=== PATIENT | female | born 1950 | race Caucasian/White ===

== ENCOUNTER → 2018-03-05 12:13 | Outpatient (CLI) | payer MEDICARE, OTHER, SELFPAY | PROVIDERS: Family Provider Preventive Medicine Occupational Medicine; PCP Preventive Medicine Occupational Medicine; Visit Provider Nurse Practitioner Acute Care | DX: Z46.89 Encounter for fitting and adjustment of other specified devices (principal) | CPT/HCPCS: 98960; G0463 ==

== ENCOUNTER 2020-09-14 16:59 | Outpatient (RCR) | payer MEDICARE, OTHER, SELFPAY ==
[2020-09-14] MEDS: COVID-19 VACC, MRNA(PFIZER)/PF 30 MCG/0.3 ML SYRINGE IM (07:50)
[2020-10-05] MEDS: COVID-19 VACC, MRNA(PFIZER)/PF 30 MCG/0.3 ML SYRINGE IM (07:29)
== END 2020-12-12 23:59 ==
LOC: IMMUN 16:59
PROVIDERS: PCP Preventive Medicine Occupational Medicine; Visit Provider Family Medicine
DX: Z23 Encounter for immunization (principal)
CPT/HCPCS: 0001A; 0002A; 91300

== ENCOUNTER → 2020-10-05 18:04 | Outpatient (CLI) | payer MEDICARE, OTHER, SELFPAY ==
[2020-10-05 16:16] VITALS: BMI 29.8
--- NOTE | 2020-10-05 18:16 | RAD_ITS ---
HISTORY: chest pain EXAM: XR Chest 2 Views: COMPARISON: None FINDINGS: # of images incl. paperwork: 2 Lungs are clear. Heart is not enlarged. Kyphosis with degenerative disc disease and anterior enthesophytes. Distention of the stomach slightly elevates the left hemidiaphragm.. Pulmonary vascularity is distinct. No effusions. RAD/Chest PA and Lateral IMPRESSION: No acute cardiopulmonary disease perceived. at 0701 Reported and signed by: Jem Adan MD Electronically Signed: Jem Adan MD at 7:00 EDT Tel , Service support ,
[2020-10-05 18:38] LABS: Absolute Lymphocyte Count 2.03 X10^3/uL (0.83-4.51); Absolute Neutrophil Count 6.1 X10^3/uL (2.0-7.7); Basophil# 0.11 X10^3/uL; Basophil% 1.2 % (0-1); Eosinophil# 0.12 X10^3/uL; Eosinophils% 1.3 % (0-5); Hematocrit 40.4 % (37-47); Hemoglobin 13.1 g/dL (12.0-15.0); Lymphocyte # 2.03 X10^3/ul (4.0); Lymphocyte % 21.8 % (19-41); Mean Corp Hgb Conc 32.4 g/dL (32-36); Mean Corpuscular Hgb 31.3 pg (27.0-32.0); Mean Corpuscular Volume 96.4 fL (81-99); Mean Platelet Vol. 10.2 fl (6.2-12.0); Monocyte# 0.82 X10^3/uL; Monocyte% 8.8 % (0-10); NRBC Flagged by Analyzer 0 % (0-5); Neutrophil # 6.05 X10^3/uL (2.7-7.7); Neutrophil % 64.9 % (47-70); Platelet Count 294 K/mm3 (150-450); RBC Distribution Width CV 13.5 % (11.6-14.6); RBC Distribution Width SD 47.5 fl (35.1-43.9); Red Blood Count 4.19 M/mm3 (4.2-5.4); White Blood Count 9.3 K/mm3 (4.4-11.0)
[2020-10-05 18:47] LABS: Prothrombin Time (Protime)PT. 12.2 SECONDS (11.7-14.9)
[2020-10-05 18:48] LABS: Partial Thromboplast Time 26.1 Seconds (24.1-36.2)
[2020-10-05 19:23] LABS: Anion Gap 7 (5-15); BUN 18 mg/dL (7-18); BUN/Creat Ratio 20.9 RATIO (10-20); Calcium,Total 9.4 mg/dL (8.5-10.1); Chloride 107 mmol/L (98-107); Creatinine, Serum 0.86 mg/dL (0.55-1.02); EST Glomerular Filtration Rate 69 mL/min (>60); Est Glom Filt Rate - Afr Amer 83 mL/min (>60); Glucose 106 mg/dL (74-106); Potassium 4.3 mmol/L (3.5-5.1); Sodium Level 138 mmol/L (136-145)
== END ==
PROVIDERS: PCP Preventive Medicine Occupational Medicine; Referring Provider Internal Medicine Cardiovascular Disease; Visit Provider Internal Medicine Cardiovascular Disease
DX: I20.9 Angina pectoris, unspecified (principal); I47.1 Supraventricular tachycardia; E78.00 Pure hypercholesterolemia, unspecified; I10 Essential (primary) hypertension; E11.9 Type 2 diabetes mellitus without complications; Z23 Encounter for immunization
CPT/HCPCS: 0002A; 36415; 71046; 80048; 85025; 85610; 85730; 91300

== ENCOUNTER 2020-10-13 07:00 | Day surgery (SDC) | payer MEDICARE, OTHER, SELFPAY ==
[2020-10-05 16:16] VITALS: BMI 29.8
[2020-10-11 14:13] VITALS: BMI 29.8
--- NOTE | 2020-10-12 19:18 | PCM.HP.BLA ---
Problem List (1) Angina pectoris Status: Acute History and Physical Date of Admission: 10/13/20 [facility] [address] [place] [address] OFFICE VISIT Date of Service: 10/05/20 MR#: [id number] Acct: [id number] Name: SHY MOORE Rep #: [id number] : 1950 Provider: Dr. Polo Evans MD Age/Sex: 70/F Location: [facility] [place] [facility] [place]: Signed HPI HPI History of Present Illness Surgical H&P: Yes Details: This is a 70-year-old white female who presents today for outpatient cardiovascular consultation based upon concerns of exertional chest tightness compatible with angina pectoris. This is superimposed upon a history of hyperlipidemia, hypertension, PSVT, and diabetes mellitus. She states that when she exerts herself, such as walking up an incline, she develops chest tightness as well as shortness of breath. She can sometimes stop and rest and feel better. Other times she states she can keep going and the symptoms will decrease and/or resolve. She does not notice the symptoms at rest or at night. She has not had orthopnea or PND or peripheral pitting edema. There has been no near syncope or syncope. She also has a history of PSVT. She notes that she has had notifications on her wristwatch of an elevated heart rate. She states that she does not necessarily sense these elevations. She has undergone 2 Holter monitors 1 in November 2018 that demonstrated sinus rhythm with rare to occasional supraventricular ectopic complexes and one 11 beat run of supraventricular tachycardia with no ventricular ectopy and a separate Holter monitor from May 2020 that demonstrated sinus rhythm with supraventricular tachycardia of 5 beats in duration and no ventricular ectopy. She is also had a transthoracic echocardiogram performed in May 2020 at [facility]. At that time the left ventricle was normal with an LVEF of 60 to 65% with a mild Franck calcified mitral valve annulus, mildly thickened and calcified aortic valve apparatus with mild AI, trivial TR, and no dilatation of the aortic root. She had an exercise tolerance test performed in May 2020 as well at [facility]. This noted that she exercised on a Gurjit protocol for 6 minutes and 37 seconds developing shortness of breath and fatigue with no obvious ECG changes reported and her myocardial perfusion study representing a technically difficult study due to significant subdiaphragmatic tracer activity as well as soft tissue attenuation with no clear evidence of ischemia or prior infarction and normal LV systolic function with an LVEF reported at greater than 70% with a comment stating that a prior study in 2004 did have a fixed defect in the anterior and anteroseptal segments and a fixed defect in the inferior segments seen on the current study was new but likely considered artifact. An ECG today demonstrated sinus rhythm with no acute changes. She states she was placed on metoprolol therapy but she did not tolerate it based upon concerns of weight gain and hair loss. Intake Vital Signs 10/05/20 Height 5 ft 5.5 in 10/05/20 Weight: 182 lb 10/05/20 BMI 29.8 10/05/20 BP 105/58 L 10/05/20 Blood Pressure Location Lt brachial 10/05/20 Position Sitting 10/05/20 Respiration 16 10/05/20 Pulse 88 10/05/20 Pulse Source Auscultation Intake Visit Reasons: SVT/Shoaib. 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 Required: No Accompanied by: None Is patient in pain?: No Allergies prednisone Allergy (Intermediate, Verified 10/05/20 16:16) Hyperglycemia benzonatate [From Tessalon Perles] Adverse Reaction (Severe, Verified 10/05/20 16:16) dizziness codeine Adverse Reaction (Severe, Verified 10/05/20 16:16) Anxiety/Nervous hydroxyzine [From Vistaril] Adverse Reaction (Severe, Verified 10/05/20 16:16) Hallucinations nitrofurantoin [From Macrodantin] Adverse Reaction (Severe, Verified 10/05/20 16:16) Diarrhea acetaminophen [From Vicodin] Adverse Reaction (Verified 10/05/20 16:16) Anxiety/Nervous hydrocodone [From Vicodin] Adverse Reaction (Verified 10/05/20 16:16) Anxiety/Nervous Medications ascorbic acid (vitamin C) 250 mg tablet 250 mg PO DAILY 09/19/20 [History Confirmed 10/05/20] aspirin 81 mg tablet,delayed release 81 mg PO DAILY 09/19/20 [History Confirmed 10/05/20] atorvastatin 20 mg tablet 20 mg PO QHS 09/19/20 [History Confirmed 10/05/20] biotin 5,000 mcg disintegrating tablet 5,000 mcg PO DAILY tab 09/19/20 [History Confirmed 10/05/20] exenatide microspheres 2 mg/0.85 mL subcutaneous auto-injector 2 mg SC QWEEK 09/19/20 [History Confirmed 10/05/20] ferrous sulfate 325 mg (65 mg iron) tablet 325 mg PO DAILY 09/19/20 [History Confirmed 10/05/20] gabapentin 100 mg capsule 100 mg PO .COMPLEX 09/19/20 [History Confirmed 10/05/20] ketoconazole 2 % topical cream 1 applic TOPICAL DAILY 09/19/20 [History Confirmed 10/05/20] levothyroxine 50 mcg tablet 50 mcg PO DAILY 09/19/20 [History Confirmed 10/05/20] lisinopril 2.5 mg tablet 2.5 mg PO DAILY 09/19/20 [History Confirmed 10/05/20] multivitamin 1 tab PO DAILY 09/19/20 [History Confirmed 10/05/20] pioglitazone 15 mg tablet 15 mg PO DAILY 09/19/20 [History Confirmed 10/05/20] sitagliptin 50 mg-metformin 1,000 mg tablet 1 tab PO BID 09/19/20 [History Confirmed 10/05/20] calcium carbonate 500 mg calcium (1,250 mg) chewable tablet 500 mg PO DAILY 10/05/20 [History Confirmed 10/05/20] clopidogrel 75 mg tablet 75 mg PO DAILY #30 tablet 10/05/20 [Rx Confirmed 10/05/20] coenzyme Q10 200 mg capsule 200 mg PO DAILY 10/05/20 [History Confirmed 10/05/20] [facility] Medical History HORACE on CPAP (Chronic) Premature atrial contraction (Acute) Type 2 diabetes mellitus (Chronic) GERD (gastroesophageal reflux disease) (Chronic) Hypothyroidism (Chronic) Pure hypercholesterolemia (Chronic) SVT (supraventricular tachycardia) (Acute) Essential hypertension (Chronic) Hiatal hernia (Chronic) Surgical History History of appendectomy (Resolved) History of bunionectomy (Resolved) History of hysterectomy (Resolved) History of laminectomy (Resolved) History of open reduction and internal fixation (ORIF) procedure (Resolved) Family History Mother Alzheimer disease Hypertension CVA (cerebral vascular accident) Father Diabetes Parkinson disease Heart disease Brother CAD (coronary artery disease) Diabetes Social History (Updated 10/05/20 @ 17:[address] Polo Evans MD) Smoking Status: Never smoker alcohol intake: never substance use type: does not use caffeine: No ROS Const Const: Negative for fatigue, weakness, headache(s), frequent falls, difficulty sleeping or excessive sweating Eyes Eyes: Negative for loss of peripheral vision, transient loss of vision, blurry vision, double vision or tunnel vision ENT ENT: Positive for balance problems (Related to knee problems); negative for headache(s), dizziness or Nosebleed/epistaxis Cardio Chest Pain: Yes Frequency: daily Character: tightness Onset: at rest, exercise Location: mid sternal Duration: minutes, hours Relieving: rest Palpitations: No Edema: None Muscle aches with walking: None Resp Respiratory: Negative for SOB with activity, SOB at rest, SOB orthopnea\SOB lying down, Cough or paroxysmal nocturnal dyspnea GI GI: Negative nausea, vomiting, heartburn or black,tarry stools : Negative for hematuria Musc Musc: Positive for balance problems (Related to knee problems); negative for muscle aches/ myalgia, muscle weakness or joint pain Skin Skin: Negative non-healing lesions, rash or unusual bruising Neuro Neuro: Negative for dizziness, lightheadedness, near syncope, syncope, frequent falls, headache(s), weakness, blurry vision, double vision or lack of coordination Flavio Hematologic/Lymphatic: Negative for easy bleeding or easy bruising Endo Endo: Negative for fatigue, excessive sweating or increased thirst/drinking Psych Psych: Negative for anxiety or depression Allergy Allergy/Immunology: Negative for hives, Negative for rash Cardiology Exam Const Appearance: cooperative, healthy appearing, comfortable, no acute distress, well developed and well groomed Nutritional Appearance: overweight Orientation: alert, awake and oriented x3 Head Head: normal to inspection, normocephalic and atraumatic Ears: hearing grossly normal bilaterally Nose: external nose normal Face and Sinus: face symmetric Eyes Eyelids: eyelids normal Conjunctivae: conjunctivae normal Pupils: PERRL EOM: EOM intact bilaterally Neck Neck: normal visual inspection and full ROM Carotids: normal carotid upstroke Chest Chest inspection: normal inspection of the chest, symmetric chest movement and normal respiratory effort Auscultation: Bilateral: Clear to Auscultation Cardio Palpation: normal PMI Rate: regular rate Rhythm: regular rhythm Heart sounds: S1 normal and S2 normal Murmur: Grade 2/6, harsh, mid systolic, LLSB, LVOT and sternal notch GI GI: normal to inspection, soft and bowel sounds present Neuro General: alert, awake, oriented x3 and moves all extremities Skin Skin: no rashes or lesions noted Extremities Pulses: Normal: Right Radial Pulse, Left Radial Pulse Lower Extremity Edema: None: Bilateral Psych Psychological: normal affect Assessment & Plan 1. Angina pectoris I20.9 Plan At the present time she does have symptoms which are concerning for exertional angina pectoris based on her concerns of chest tightness as well as her dyspnea. She does have multiple cardiovascular risk factors. Thus it was felt reasonable, despite her stress test findings, to consider further evaluation of her coronary anatomy with diagnostic cardiac catheterization. The procedure and risks were discussed with her. And she was agreeable to this approach. In preparation for this she will continue her medical therapy. She will also undergo additional medical therapy with antiplatelet therapy such as clopidogrel/Plavix in anticipation of the potential need for a PCI procedure. Orders Orders: 12 Lead EKG performed by [facility] Today Left Heart Cath/COR/LV Percut Today Basic Metabolic Profile (BMP) Today Partial Thromboplast Time Today Prothrombin Time w/INR Today CBC W/Diff, Automated Today Chest PA and Lateral Today 2. Supraventricular tachycardia I47.1 Plan She does have a history of PSVT. Based upon her Holter monitor is these episodes were brief. At the moment she appears without ongoing acute symptoms or adverse events. She will be followed observationally. If she does require medical therapy and she cannot tolerate metoprolol perhaps an alternative beta-kiki may be considered versus an alternative rate limiting agent. If she did have findings compatible with what appeared to be a reentry mechanism tachycardia then she could be considered for future EPS/RFA. Orders Orders: 12 Lead EKG performed by [facility]MS Today Basic Metabolic Profile (BMP) Today Partial Thromboplast Time Today Prothrombin Time w/INR Today CBC W/Diff, Automated Today Chest PA and Lateral Today 3. Pure hypercholesterolemia E78.00 Plan She will continue risk factor modification medical therapy. Orders Orders: Basic Metabolic Profile (BMP) Today Partial Thromboplast Time Today Prothrombin Time w/INR Today CBC W/Diff, Automated Today Chest PA and Lateral Today 4. Essential hypertension I10 Plan She will continue medical therapy for concerns of hypertension. Orders Orders: 12 Lead EKG performed by [facility] Today Basic Metabolic Profile (BMP) Today Partial Thromboplast Time Today Prothrombin Time w/INR Today CBC W/Diff, Automated Today Chest PA and Lateral Today 5. Diabetes mellitus E11.9 Plan She will continue to follow with her primary care physician group for her diabetes mellitus. Orders Orders: Basic Metabolic Profile (BMP) Today Partial Thromboplast Time Today Prothrombin Time w/INR Today CBC W/Diff, Automated Today Chest PA and Lateral Today Plan Detail Other Medications New: clopidogrel (Plavix) 4 tablets (300 mg) po x 1 on day 1 and then 1 tablet (75 mg) po qday 75 mg PO DAILY 30 tabs 0RF Additional Comments The above was discussed with her and she was agreeable to this approach. Follow Up 3 Months (PFM) Coding Level of Care Code Off vis,new,level 5 Diagnoses Angina pectoris I20.9 Supraventricular tachycardia I47.1 Pure hypercholesterolemia E78.00 Essential hypertension I10 Diabetes mellitus E11.9 Coding Level of Care Code Off vis,new,level 5 Diagnoses Angina pectoris I20.9 Supraventricular tachycardia I47.1 Pure hypercholesterolemia E78.00 Essential hypertension I10 Diabetes mellitus E11.9 Supplemental Info Supplemental Information Diagnostics Electrocardiogram 10/05/20 COVID (Procedure Consent) Procedure Criteria Procedure Criteria: Yes Elective The surgeon/proceduralist and patient have discussed in detail the risk of exposure to and/or potential harm posed by the COVID-19 virus with having a surgery/procedure at this time versus the risk of? delaying the surgery/procedure. It is not possible to know either the risk of delaying the surgery or procedure or chance of getting an infection with perfect accuracy, but a joint decision was made between the patient and the surgeon/proceduralist ?to proceed at this time with the scheduled surgery/procedure as indicated on the consent form. 10/05/20 1744 <Electronically signed by Polo Evans MD> Date Polo Evans MD I have re-examined the patient. There are no clinical changes since date of exam. Procedure Criteria Procedure Type: Elective COVID Risk Discussion: The surgeon/proceduralist and patient have discussed in detail the risk of exposure to and/or potential harm posed by the COVID-19 virus with having a surgery/procedure at this time versus the risk of delaying the surgery/procedure. It is not possible to know either the risk of delaying the surgery or procedure or chance of getting an infection with perfect accuracy, but a joint decision was made between the patient and the surgeon/proceduralist to proceed at this time with the scheduled surgery/procedure as indicated on the consent form.
--- NOTE | 2020-10-13 10:28 | CL.D_ITS ---
Patient Name: SHY MOORE Study Date: 10/13/2020 Performing: Polo Evans MD Ht: 65.35 inches 166 cm : 1950 Wt: 182.98 lbs 83 kg Age: 70 Gender: female BSA: 1.91 PROCEDURE(S) PERFORMED ZC04-AOR/COR/LV CLINICAL PROFILE AND INDICATIONS Indications: Worsening Angina, Suspected CAD Heart Failure: None Stress/Imaging Date: 05/22/2020Stress Test with SPECT MPI: Indeterminant Angina Classification Anginal Classification w/in 2 Weeks: CCS III CAD Presentations: Stable angina. CONCLUSIONS Elevated Left Ventricular End Diastolic Pressure Normal LV size, wall motion,and systolic function LVEF: by LV gram 65 % [place] Multivessel CAD RECOMMENDATIONS Risk factor modification Medical therapy DESCRIPTION OF PROCEDURE The patient arrived to the procedure lab. The risks and benefits of the procedure as well as a full d escription of our services here and current unavailability of surgical backup were fully explained to the patient and/or their significant other prior to the catheterization. The Timeout was completed, verifying the correct patient and procedure. The patient's procedural site was prepped and draped in the usual fashion. Local anesthetic was given subcutaneously to right radial region with Lidocaine 2% . Using a modified Seldinger technique, arterial access was obtained via the right radial artery, a 6 Fr sheath was inserted. Left Coronary Artery selective angiography was performed in multiple views u sing a 5 Fr. 4.0 [place] catheter. Right Coronary Artery selective angiography was then performed in mu ltiple views using a 5 Fr. 4.0 [place] catheter. Right Coronary Artery selective angiography was then p erformed in multiple views using a 5 Fr. 3DRC (Harpreet) catheter. Left Ventriculography was performed in [place] projection using a 5 Fr. [place] catheter. LV to AO pullback pressures were then recorded.The arterial sheath was pulled and a TR Band was applied for hemostasis CORONARY ANGIOGRAPHY DOMINANCE: Right Dominant LEFT HEART ASSESSMENT Left Ventricular Ejection Fraction: by LV Gram 65 % Normal LV wall motion Elevated Left Ventricular End Diastolic Pressure LVEDP: 21 mmHg LEFT MAIN: Mild calcification LEFT ANTERIOR DESCENDING ARTERY: PROX LAD: Severe calcification, diffuse: 10 - 25 % Stenosis MID LAD: Moderate calcification, Mild luminal irregularities DISTAL LAD: Mild luminal irregularities CIRCUMFLEX ARTERY: Angiographically normal RAMUS: Angiographically normal RIGHT CORONARY ARTERY: PROX RCA: Moderate calcification, diffuse: 10 - 25 % Stenosis MID RCA: Moderate calcification, Mild luminal irregularities DISTAL RCA: Mild luminal irregularities AORTIC ROOT: Angiographically normal COMPLICATIONS No Complications PROCEDURE MEDICATIONS Versed 1 mg IV Fentanyl 50 mcg IV Oxygen: 2 L/min via nasal cannula Heparin diluted in 23cc Heparinized saline. Patient given 10cc IA of this solution. 10/13/2020 08:31:1 6 Verapamil 2.5mg, Ntg 100mcgs, 2000 units of Heparin diluted in 23cc Heparinized saline. Patient give n 10cc IA of this solution. 10/13/2020 08:31:16 IV Bolus: .9 NaCl 250 ml total 10/13/2020 08:34:18 SUMMARY OF HEMODYNAMIC DATA Time AIR REST ECG 07:19:43 AO 123/58 (76) SA 08:28:30 LV 119/0, 22 08:52:28 LV 118/0, 21 08:52:34 LV 117/8, 25 08:53:23 LV 117/1, 23 08:53:30 LVp 115/1, 24 08:54:08 AOp 111/56 (80) 08:54:13 Signed By Polo Evans MD On 10/13/2020 10:27:33 AM Polo Evans MD
== END 2020-10-13 10:55 | disposition home or self-care (01) ==
LOC: CLSP 07:01
PROVIDERS: PCP Preventive Medicine Occupational Medicine; Referring Provider Internal Medicine Cardiovascular Disease; Visit Provider Internal Medicine Cardiovascular Disease
DX: I25.110 Atherosclerotic heart disease of native coronary artery with unstable angina pectoris (principal); I47.1 Supraventricular tachycardia; E78.00 Pure hypercholesterolemia, unspecified; I10 Essential (primary) hypertension; E11.9 Type 2 diabetes mellitus without complications; E78.5 Hyperlipidemia, unspecified; E03.9 Hypothyroidism, unspecified; G47.33 Obstructive sleep apnea (adult) (pediatric); Z82.49 Family history of ischemic heart disease and other diseases of the circulatory system; Z79.84 Long term (current) use of oral hypoglycemic drugs
CPT/HCPCS: 93458; 99152; 99153; J7040; C1769; C1894; Q9967

== ENCOUNTER → 2020-10-16 16:43 | Outpatient (CLI) | payer MEDICARE, OTHER, SELFPAY ==
[2020-10-11 14:13] VITALS: BMI 29.8
[2020-10-16 18:29] LABS: Anion Gap 5 (5-15); BUN 18 mg/dL (7-18); BUN/Creat Ratio 21.4 RATIO (10-20); Calcium,Total 9.6 mg/dL (8.5-10.1); Chloride 106 mmol/L (98-107); Creatinine, Serum 0.84 mg/dL (0.55-1.02); EST Glomerular Filtration Rate 71 mL/min (>60); Est Glom Filt Rate - Afr Amer 86 mL/min (>60); Glucose 128 mg/dL (74-106); Potassium 4.3 mmol/L (3.5-5.1); Sodium Level 139 mmol/L (136-145)
== END ==
PROVIDERS: PCP Preventive Medicine Occupational Medicine; Referring Provider Internal Medicine Cardiovascular Disease; Visit Provider Internal Medicine Cardiovascular Disease
DX: I10 Essential (primary) hypertension (principal); I47.1 Supraventricular tachycardia; E78.00 Pure hypercholesterolemia, unspecified; I49.1 Atrial premature depolarization
CPT/HCPCS: 36415; 80048

== ENCOUNTER → 2020-10-19 10:01 | Outpatient (CLI) | payer MEDICARE, OTHER, SELFPAY ==
[2020-10-11 14:13] VITALS: BMI 29.8
--- NOTE | 2020-10-19 10:02 | UEAS_ITS ---
Reason For Study: Decreased pulse, weak and numb right hand. s/p cath RIGHT Radial artery prox, 0.22 x 0.23 cm, 23 cm/sec. Radial artery mid, 0.24 x 0.25 cm, 59 cm/sec. Radial artery distal, 0.25 x 0.27 cm, No flow noted. Ulnar artery mid, 0.16 x 0.16 cm, 92.8 cm/sec. Brachial artery dist, 0.35 x 0.36 cm, 107 cm/sec. Radial vein and cephalic vein are compressible Acute thrombus is noted in the right distal radial artery. Thrombus is noted to be 5 cm long from cath site. Prelim to Flavia CARBAJAL.
== END ==
PROVIDERS: PCP Preventive Medicine Occupational Medicine; Referring Provider Internal Medicine Cardiovascular Disease; Visit Provider Internal Medicine Cardiovascular Disease
DX: R09.89 Other specified symptoms and signs involving the circulatory and respiratory systems (principal); S55.101A Unspecified injury of radial artery at forearm level, right arm, initial encounter
CPT/HCPCS: 93923

== ENCOUNTER → 2020-11-17 08:09 | Outpatient (CLI) | payer MEDICARE, OTHER, SELFPAY ==
[2020-10-11 14:13] VITALS: BMI 29.8
== END ==
PROVIDERS: PCP Preventive Medicine Occupational Medicine; Referring Provider Internal Medicine Cardiovascular Disease; Visit Provider Internal Medicine Cardiovascular Disease
DX: I74.2 Embolism and thrombosis of arteries of the upper extremities (principal); R20.0 Anesthesia of skin
CPT/HCPCS: 93931

== ENCOUNTER → 2020-12-18 07:55 | Outpatient (CLI) | payer MEDICARE, OTHER, SELFPAY ==
[2020-10-19 09:34] VITALS: BMI 29.8
== END ==
PROVIDERS: PCP Preventive Medicine Occupational Medicine; Referring Provider Internal Medicine Cardiovascular Disease; Visit Provider Internal Medicine Cardiovascular Disease
DX: I74.2 Embolism and thrombosis of arteries of the upper extremities (principal); S55.101A Unspecified injury of radial artery at forearm level, right arm, initial encounter
CPT/HCPCS: 93931

== ENCOUNTER → 2021-01-10 14:47 | Outpatient (CLI) | payer MEDICARE, OTHER, SELFPAY ==
[2020-10-19 09:34] VITALS: BMI 29.8
[2021-01-10 17:44] LABS: Absolute Lymphocyte Count 1.32 X10^3/uL (0.83-4.51); Absolute Neutrophil Count 5.1 X10^3/uL (2.0-7.7); Basophil# 0.07 X10^3/uL; Basophil% 0.9 % (0-1); Eosinophil# 0.14 X10^3/uL; Eosinophils% 1.9 % (0-5); Hematocrit 39.1 % (37-47); Hemoglobin 12.4 g/dL (12.0-15.0); Lymphocyte # 1.32 X10^3/ul (0.83-4.51); Lymphocyte % 17.7 % (19-41); Mean Corp Hgb Conc 31.7 g/dL (32-36); Mean Corpuscular Hgb 30.5 pg (27.0-32.0); Mean Corpuscular Volume 96.1 fL (81-99); Mean Platelet Vol. 10.2 fl (6.2-12.0); Monocyte% 8.1 % (0-10); NRBC Flagged by Analyzer 0 % (0-5); Neutrophil % 68.6 % (47-70); Platelet Count 280 K/mm3 (150-450); RBC Distribution Width CV 13.5 % (11.6-14.6); RBC Distribution Width SD 47.9 fl (35.1-43.9); Red Blood Count 4.07 M/mm3 (4.2-5.4); White Blood Count 7.4 K/mm3 (4.4-11.0)
[2021-01-10 18:13] LABS: Anion Gap 10 (5-15); BUN 16 mg/dL (7-18); BUN/Creat Ratio 17.2 RATIO (10-20); CRP 3.11 mg/L (0.0-3.0); Calcium,Total 8.9 mg/dL (8.5-10.1); Chloride 104 mmol/L (98-107); Creatinine, Serum 0.93 mg/dL (0.55-1.02); EST Glomerular Filtration Rate 63 mL/min (>60); Est Glom Filt Rate - Afr Amer 76 mL/min (>60); Glucose 143 mg/dL (74-106); Potassium 4.1 mmol/L (3.5-5.1); Sodium Level 140 mmol/L (136-145); Uric Acid 6.5 mg/dL (2.6-6.0)
[2021-01-10 18:27] LABS: Erythrocyte Sedimentation Rate 8 mm/hr (0-30)
== END ==
PROVIDERS: PCP Preventive Medicine Occupational Medicine; Referring Provider Podiatrist; Visit Provider Podiatrist
DX: L03.032 Cellulitis of left toe (principal)
CPT/HCPCS: 36415; 80048; 84550; 85025; 85652; 86140

== ENCOUNTER → 2021-01-17 09:49 | Outpatient (CLI) | payer MEDICARE, OTHER, SELFPAY ==
[2020-10-19 09:34] VITALS: BMI 29.8
== END ==
PROVIDERS: PCP Preventive Medicine Occupational Medicine; Referring Provider Internal Medicine Cardiovascular Disease; Visit Provider Internal Medicine Cardiovascular Disease
DX: S55.191A Other specified injury of radial artery at forearm level, right arm, initial encounter (principal); I82.90 Acute embolism and thrombosis of unspecified vein
CPT/HCPCS: 93931

== ENCOUNTER → 2021-04-25 09:55 | Outpatient (CLI) | payer MEDICARE, OTHER, SELFPAY ==
[2021-01-17 10:51] VITALS: BMI 30.4
== END ==
PROVIDERS: PCP Preventive Medicine Occupational Medicine; Referring Provider Nurse Practitioner Family; Visit Provider Nurse Practitioner Family
DX: I74.2 Embolism and thrombosis of arteries of the upper extremities (principal)
CPT/HCPCS: 93931

== ENCOUNTER → 2021-11-21 | Outpatient (CLI) | payer MEDICARE, OTHER, SELFPAY ==
--- NOTE | 2021-11-21 15:08 | NEURO ---
NCS and/or EMG Patient Report Ordering Doctor: Vineet Thomas DATE OF SERVICE: 11/21/21 Ashley presents for electrodiagnostic testing of the lower limbs. She reports numbness tingling and pain in the feet. Electrodiagnostic findings: Left peroneal motor nerve demonstrates normal distal latency and amplitude with borderline reduced conduction velocity. Right peroneal motor nerve demonstrates normal distal latency and amplitude with borderline reduced conduction velocity. Tibial motor response is within normal limits bilaterally. Borderline prolonged H reflex bilaterally. Borderline prolonged tibial and peroneal F waves bilaterally. Sural latencies within normal limits bilaterally. Mild slowing of superficial peroneal latency bilaterally. On needle EMG, all muscles tested in the lower limbs showed no evidence of denervation with normal motor unit action potentials. Electrodiagnostic impression: This is an abnormal study in the lower limbs 1. Electrodiagnostic findings suggestive of a mild peripheral polyneuropathy, with sensory and motor involvement. This may be secondary to diabetes. 2. There is no electrodiagnostic evidence for tarsal tunnel syndrome. 3. There is no electrodiagnostic evidence for lumbar radiculopathy.
== END | disposition home or self-care (01) ==
LOC: PSN 06:30
PROVIDERS: PCP Preventive Medicine Occupational Medicine; Referring Provider Podiatrist; Visit Provider Podiatrist
DX: G62.9 Polyneuropathy, unspecified (principal); R20.0 Anesthesia of skin; R20.2 Paresthesia of skin
CPT/HCPCS: 95886; 95911

== ENCOUNTER → 2021-11-27 | Outpatient (CLI) | payer MEDICARE, OTHER, SELFPAY | END | disposition home or self-care (01) | LOC: PSN 08:41 | PROVIDERS: PCP Preventive Medicine Occupational Medicine; Visit Provider Internal Medicine Cardiovascular Disease | DX: I49.1 Atrial premature depolarization (principal); I47.1 Supraventricular tachycardia | CPT/HCPCS: 93225; 93226 ==

== ENCOUNTER → 2022-02-21 | Outpatient (CLI) | payer MEDICARE, OTHER, SELFPAY ==
[2022-02-21 08:14] LABS: Absolute Lymphocyte Count 1.62 X10^3/uL (0.83-4.51); Absolute Neutrophil Count 5.6 X10^3/uL (2.0-7.7); Basophil# 0.09 X10^3/uL; Basophil% 1.1 % (0-1); Eosinophil# 0.16 X10^3/uL; Eosinophils% 1.9 % (0-5); Hematocrit 39.9 % (37-47); Hemoglobin 12.8 g/dL (12.0-15.0); Lymphocyte # 1.62 X10^3/ul (0.83-4.51); Lymphocyte % 19.2 % (19-41); Mean Corp Hgb Conc 32.1 g/dL (32-36); Mean Corpuscular Hgb 30.6 pg (27.0-32.0); Mean Corpuscular Volume 95.5 fL (81-99); Mean Platelet Vol. 9.5 fl (6.2-12.0); Monocyte# 0.77 X10^3/uL; Monocyte% 9.1 % (0-10); NRBC Flagged by Analyzer 0 % (0-5); Neutrophil % 66.3 % (47-70); Platelet Count 260 K/mm3 (150-450); RBC Distribution Width CV 13.4 % (11.6-14.6); RBC Distribution Width SD 47.1 fl (35.1-43.9); Red Blood Count 4.18 M/mm3 (4.2-5.4); White Blood Count 8.4 K/mm3 (4.4-11.0)
[2022-02-21 08:51] LABS: AST(SGOT) 21 U/L (15-37); Alanine Aminotransfer ALT/SGPT 27 U/L (13-56); Albumin, Serum 3.8 g/dL (3.2-5.0); Alkaline Phosphatase 79 U/L (45-117); Anion Gap 4 (5-15); BUN 13 mg/dL (7-18); BUN/Creat Ratio 14.8 RATIO (10-20); Bilirubin, Direct 0.11 mg/dL (0.00-0.30); Calcium,Total 9.8 mg/dL (8.5-10.1); Chloride 105 mmol/L (98-107); Cholesterol 163 mg/dL (200); Creatinine, Serum 0.88 mg/dL (0.55-1.02); EST Glomerular Filtration Rate 67 mL/min (>60); Est Glom Filt Rate - Afr Amer 81 mL/min (>60); Globulin 3.4 g/dL (2.2-4.2); Glucose 103 mg/dL (74-106); High Density Lipoprotein 63 mg/dL; Magnesium 1.8 mg/dL (1.6-2.6); Potassium 4.1 mmol/L (3.5-5.1); Protein, Total 7.2 g/dL (6.4-8.2); Sodium Level 139 mmol/L (136-145); T4 Free Direct 1.16 ng/dL (0.76-1.46); Thyroid Stim Hormone (TSH) 2.45 uIU/mL (0.358-3.74); Triglycerides 147 mg/dL; Very Low Density Lipoprotein 29 mg/dL (5-40)
== END | disposition home or self-care (01) ==
PROVIDERS: PCP Preventive Medicine Occupational Medicine; Referring Provider Nurse Practitioner Gerontology; Visit Provider Nurse Practitioner Gerontology
DX: I48.91 Unspecified atrial fibrillation (principal); I47.1 Supraventricular tachycardia; E11.9 Type 2 diabetes mellitus without complications; E78.00 Pure hypercholesterolemia, unspecified; Z79.01 Long term (current) use of anticoagulants; R00.2 Palpitations
CPT/HCPCS: 36415; 80048; 80061; 80076; 83735; 84439; 84443; 85025

== ENCOUNTER 2022-02-28 20:15 | Inpatient (IN) | payer MEDICARE, OTHER, SELFPAY ==
[2022-02-28] VITALS (13 sets, daily range): BP systolic 101–145; BP diastolic 62–88; PULSE 82–136; RESP 16–21; TEMP 36.1–36.5; O2SAT 95–98; BMI 31.1; BMI 31.3
--- NOTE | 2022-02-28 20:30 | EKG12_ITS ---
Test Reason : PALPS Blood Pressure : / mmHG Vent. Rate : 134 BPM Atrial Rate : 000 BPM P-R Int : 000 ms QRS Dur : 060 ms QT Int : 282 ms P-R-T Axes : 000 028 003 degrees QTc Int : 421 ms Atrial fibrillation with rapid ventricular response Nonspecific ST abnormality Abnormal ECG Confirmed by LACY DIETRICH, NORMA ([id number]), science editor CHERYL CALDWELL ([id number]) on 03/04/2022 9:32:58 AM Referred By: URMILA Confirmed By:CHELSEA HOUSE MD
[2022-02-28] MEDS: Metoprolol Tartrate 5 MG/5 ML Vial IV ×3 (20:48→21:38)
--- NOTE | 2022-02-28 20:49 | EDS_ITS ---
HPI History of Present Illness Chief Complaint: Palpitations Detail of Chief Complaint: Palpitations and midsternal chest pressure Informant: patient Onset/Context/Timing Onset: Today (1829) Activity at onset: sudden Timing: Continuous Quality: Positive for Pressure Location: Substernal Current Severity: Mild Maximum Severity: Moderate Worsened By: Exertion Relieved By: Nothing Associated Symptoms: Positive for Palpitations; Negative for Nausea, Vomiting, Diaphoresis, Dyspnea, Cough, Fever, Lightheadedness or Acid Reflux Narrative Narrative: Patient is a 71-year-old woman with history of supraventricular tachycardia who was diagnosed earlier this month with atrial fibrillation. She is on Eliquis. She is on carvedilol for who supraventricular tachycardia. Her stroboscope operator is Dr. Evans. At 1800 her heart rate became fast she felt palpitations and felt pressure in her chest. She does report increased pressure with activity. There is no radiation. There is no diaphoresis. There is no nausea or vomiting. There is no dyspnea. She denies black or maroon-colored stool. She denies hematuria. Denies bleeding of her gums. Denies bruising easily. She denies history of coronary disease. Prior Similar Symptoms: Yes Recent Illness/Hospitalization: Yes CVD Risk Factors: Positive for Hypertension, Diabetes and Hypercholesterolemia; Negative for Family History 1' </=55 or Smoking PE Risk Factors: Negative for Recent Travel/Surgery, Recent Immobilization, Prior DVT or PE, Cancer or OCP + Smoking + >/=35 TAD Risk Factors: Positive for Hypertension; Negative for Marfan's Syndrome or Family History [facility] Medical History Atrial fibrillation Essential hypertension GERD (gastroesophageal reflux disease) Gout Hiatal hernia Hypothyroidism HORACE on CPAP Premature atrial contraction Pure hypercholesterolemia SVT (supraventricular tachycardia) Type 2 diabetes mellitus Home Medications ascorbic acid (vitamin C) 250 mg tablet 250 mg PO DAILY 09/19/20 [History Last Taken Unknown] aspirin 81 mg tablet,delayed release (Adult Low Dose Aspirin) 81 mg PO DAILY 09/19/20 [History Last Taken 10/13/20] atorvastatin 20 mg tablet 20 mg PO QHS 09/19/20 [History Last Taken Unknown] biotin 5,000 mcg disintegrating tablet 5,000 mcg PO DAILY 09/19/20 [History Last Taken Unknown] exenatide microspheres 2 mg/0.85 mL subcutaneous auto-injector 2 mg subcut QWEEK 09/19/20 [History Last Taken Unknown] ferrous sulfate 325 mg (65 mg iron) tablet 325 mg PO DAILY 09/19/20 [History Last Taken Unknown] levothyroxine 50 mcg tablet 50 mcg PO DAILY 09/19/20 [History Last Taken 10/13/20] multivitamin 1 tablet PO DAILY 09/19/20 [History Last Taken Unknown] pioglitazone 15 mg tablet 15 mg PO DAILY 09/19/20 [History Last Taken Unknown] calcium carbonate 500 mg calcium (1,250 mg) chewable tablet 500 mg PO DAILY 10/05/20 [History Last Taken Unknown] coenzyme Q10 200 mg capsule 200 mg PO DAILY 10/05/20 [History Last Taken Unknown] ketoconazole 2 % topical cream 1 applic topical DAILY PRN 01/17/21 [History Last Taken Unknown] omeprazole 40 mg capsule,delayed release 40 mg PO BID 11/14/21 [History Last Taken Unknown] carvedilol 6.25 mg tablet 6.25 mg PO BID #180 tabs 02/01/22 [Rx Last Taken Unknown] apixaban 5 mg tablet (Eliquis) 5 mg PO BID #60 tabs 02/13/22 [Rx Last Taken Unknown] gabapentin 100 mg capsule 500 mg PO QHS 02/13/22 [History Last Taken Unknown] sitagliptin 50 mg-metformin 1,000 mg tablet (Janumet) 1 tab PO BID 02/13/22 [History Last Taken Unknown] meloxicam 7.5 mg tablet 7.5 mg PO PRN PRN Pain 02/28/22 [History Last Taken Unknown] Allergy/AdvReac Type Severity Reaction Status Date / Time prednisone Allergy Intermediate Hyperglycem Verified 02/28/22 20:18 ia benzonatate AdvReac Severe dizziness Verified 02/28/22 20:18 [From Tessalon Perles] codeine AdvReac Severe Anxiety/Ner Verified 02/28/22 20:18 vous hydroxyzine [From Vistaril] AdvReac Severe Hallucinati Verified 02/28/22 20:18 ons nitrofurantoin AdvReac Severe Diarrhea Verified 02/28/22 20:18 [From Macrodantin] raloxifene AdvReac Unknown Bowel Verified 02/28/22 20:18 issues acetaminophen [From Vicodin] AdvReac Anxiety/Ner Verified 02/28/22 20:18 vous hydrocodone [From Vicodin] AdvReac Anxiety/Ner Verified 02/28/22 20:18 vous Family History Mother Alzheimer disease Hypertension CVA (cerebral vascular accident) Father Diabetes Parkinson disease Heart disease Brother CAD (coronary artery disease) Diabetes Surgical History History of appendectomy History of bunionectomy History of hysterectomy History of laminectomy History of left heart catheterization (LHC) (~10/13/20) History of open reduction and internal fixation (ORIF) procedure Social History (Updated 02/28/22 @ 20:[address] Avtar Diop MD) household members: none Smoking Status: Never smoker alcohol intake: never substance use type: does not use caffeine: No ROS ROS ED Constitutional Constitutional ED: Denies chills, fever(s), subjective, sweats or weight loss Eyes Eyes: Reports none ENT ENT ED: Denies ear pain, rhinorrhea or sore throat Cardiovascular Cardiovascular: Reports as per HPI, chest pain, palpitations and racing heartbeat; Denies orthopnea or paroxysmal nocturnal dyspnea Respiratory/Chest Respiratory/Chest: Denies cough, dyspnea, dyspnea on exertion, orthopnea or paroxysmal nocturnal dyspnea Gastrointestinal Gastrointestinal: Denies abdominal pain, constipation, diarrhea, melena, nausea or vomiting Genitourinary Genitourinary ED: Denies dysuria or hematuria Musculoskeletal Musculoskeletal: Denies arthralgias, myalgias or neck pain Integumentary Denies Abrasions or rash Neurologic Neurologic: Denies headache(s), paresthesias or weakness Psychiatric Psychiatric: Denies anxiety or depression Endocrine Endocrinology: Denies cold intolerance or heat intolerance Hematologic/Lymphatic Hematologic/Lymphatic: Denies easy bleeding, easy bruising or lymphadenopathy EXAM Physical Exam Const Vital Signs: 02/28/22 20:16 02/28/22 20:43 02/28/22 20:45 Temperature 96.9 F L Temperature Source Temporal Pulse Rate 103 H 82 Respiratory Rate 18 18 Respiratory Effort Short of Breath Blood Pressure 138/84 H 145/73 H Blood Pressure Mean 102 97 Pulse Ox 97 97 Oxygen Delivery Method Room Air Room Air 02/28/22 20:54 02/28/22 21:22 02/28/22 21:34 Temperature Temperature Source Pulse Rate 103 H 110 H 117 H Respiratory Rate 16 16 18 Respiratory Effort Blood Pressure 139/70 H 141/88 H 125/75 H Blood Pressure Mean 93 105 91 Pulse Ox 97 96 96 Oxygen Delivery Method Room Air Room Air Room Air 02/28/22 21:42 Temperature Temperature Source Pulse Rate 115 H Respiratory Rate 16 Respiratory Effort Blood Pressure 101/74 Blood Pressure Mean 83 Pulse Ox 96 Oxygen Delivery Method Room Air Positive well nourished, well developed and obese; Negative for unkempt General Appearance ED: well developed and NAD; Negative for unkempt or pallor Nutritional Appearance: obese HEENT Reports TM's clear and moist mucous membranes HEENT Narrative: Ears normal. Nares patent. Uvula is midline. There is no erythema or exudate. normocephalic and atraumatic Tympanic Membrane ED: Yes TM's clear Eyes PERRL and EOMs intact bilaterally General Eye ED: Negative for pale conjunctiva or scleral icterus Neck no lymphadenopathy, supple and no JVD Chest Wall inspection of chest normal and palpation of chest normal Resp normal respiratory effort Cardio S1 normal heart sound, S2 normal heart sound and no murmurs Rhythm: abnormal rhythm irregularly irregular (Monitor reveals atrial fibrillation with RVR.) Peripheral Pulses: pulses 2+ throughout GI normal to inspection, nondistended, normoactive bowel sounds, soft to palpation, non-tender and non-distended; Negative for hepatosplenomegaly Back/Spine no CVA tenderness Back/Spine Narrative: Inspection is normal Extremity normal to inspection General Extremety ED: Negative for edema, pulses abnormal or tenderness General Extremity: Negative for edema or pulses abnormal Neuro oriented x3, CN's II-XII intact bilaterally, no sensory deficits noted and gait normal Sensorium / Orientation: awake and alert Psych mental status grossly normal Appearance: Negative for unkempt Skin no rashes or lesions noted and no wounds General Skin Exam: Negative for jaundice or pallor Heart Score History: Slightly/Non-Suspicious ECG: Normal Age: >/= 65 years Risk Factors: 1 or 2 Risk Factors Score: 3 MDM MDM MDM Narrative Medical decision making narrative: Suspect patient's chest discomfort is due to A. fib with RVR. There is no ischemic changes noted on EKG. Because she is elderly with risk factors troponin was obtained with 2-hour troponin if needed. First troponin is 3. Negative predictive value 100%. Patient's heart rate is now 120. Additional dose of metoprolol was ordered. Case was discussed with cardiology. Plan was discharged with metoprolol 100 mg twice daily and discontinued the carvedilol. Heart rate at that time was 110. Heart rate is now 130+. Will call hospitalist for admission for rate control. Lab Data Attestation: I reviewed the patient's lab results. Lab results narrative: With a troponin of 3 cardiac etiology of her chest discomfort has been ruled out. Labs: Laboratory Results - last 24 hr 02/28/22 02/28/22 02/28/22 20:30 20:30 20:30 WBC 9.7 RBC 4.12 L Hgb 13.0 Hct 38.5 MCV 93.4 MCH 31.6 MCHC 33.8 RDW Std Deviation 45.2 H RDW Coeff of Anusha 13.2 Plt Count 244 MPV 10.3 Immature Gran % (Auto) 1.400 H Neut % (Auto) 63.5 Lymph % (Auto) 23.3 [place] % (Auto) 8.9 Eos % (Auto) 2.0 Baso % (Auto) 0.9 Absolute Neuts (auto) 6.2 Absolute Lymphs (auto) 2.27 Nucleated RBC % 0 Sodium 141 Potassium 4.2 Chloride 108 H Carbon Dioxide 24.0 Anion Gap 9 BUN 18 Creatinine 0.91 Estim Creat Clear Calc 49.54 Est GFR (MDRD) Af Amer 78 Est GFR (MDRD) Non-Af 64 BUN/Creatinine Ratio 19.7 Glucose 98 Calcium 9.6 Troponin I High Sens 3 Cancelled Rhythm Strip Rhythm Strip: A-fib Rate: 145 Ectopy: None EKG Initial EKG: Attestation: I personally reviewed and interpreted this EKG as follows: Interpretation: Atrial Fibrillation (Is normalVentricular rate is 134. QRS duration 60 ms. QT duration 282 ms.. There is evidence of flutter waves in lead I, aVR and aVL. Suspect this is what the computer is reading is nonspecific ST abnormalities.) Discharge Plan Triage Chief Complaint: Palpitations ED Provider: Avtar Diop Dx/Rx/DC Orders Clinical Impression: Atrial fibrillation with rapid ventricular response, Essential hypertension, Type 2 diabetes mellitus, Anticoagulant long-term use, Chest pain Prescriptions: No Action calcium carbonate 500 mg calcium (1,250 mg) tablet,chewable 500 mg PO DAILY coenzyme Q10 200 mg capsule 200 mg PO DAILY aspirin [Adult Low Dose Aspirin] 81 mg tablet,delayed release (DR/EC) 81 mg PO DAILY Hold Instructions: Taking full strength ASA for now. atorvastatin 20 mg tablet 20 mg PO QHS biotin 5,000 mcg tablet,disintegrating 5,000 mcg PO DAILY exenatide microspheres 2 mg/0.85 mL auto-injector 2 mg SC QWEEK ferrous sulfate 325 mg (65 mg iron) tablet 325 mg PO DAILY levothyroxine 50 mcg tablet 50 mcg PO DAILY multivitamin Tablet 1 tablet PO DAILY pioglitazone 15 mg tablet 15 mg PO DAILY ascorbic acid (vitamin C) 250 mg tablet 250 mg PO DAILY ketoconazole 2 % cream 1 applic TOPICAL DAILY PRN (Reason: Rash) gabapentin 100 mg capsule 500 mg PO QHS omeprazole 40 mg capsule,delayed release(DR/EC) 40 mg PO BID Janumet 50-1,000 mg tablet 1 tab PO BID Eliquis 5 mg tablet 5 mg PO BID Qty: 60 12RF meloxicam 7.5 mg Tablet 7.5 mg PO PRN PRN (Reason: Pain) carvedilol 6.25 mg tablet 6.25 mg PO BID Qty: 180 4RF Rx Instructions: must administer with a meal/food Primary Care Provider: Everardo Silva Referrals: Everardo Silva DO [Primary Care Provider] - Disposition Disposition: Acute Care [facility]
[2022-02-28 20:51] LABS: Absolute Lymphocyte Count 2.27 X10^3/uL (0.83-4.51); Absolute Neutrophil Count 6.2 X10^3/uL (2.0-7.7); Basophil# 0.09 X10^3/uL; Basophil% 0.9 % (0-1); Eosinophil# 0.19 X10^3/uL; Hematocrit 38.5 % (37-47); Lymphocyte # 2.27 X10^3/ul (0.83-4.51); Lymphocyte % 23.3 % (19-41); Mean Corp Hgb Conc 33.8 g/dL (32-36); Mean Corpuscular Hgb 31.6 pg (27.0-32.0); Mean Corpuscular Volume 93.4 fL (81-99); Mean Platelet Vol. 10.3 fl (6.2-12.0); Monocyte# 0.87 X10^3/uL; Monocyte% 8.9 % (0-10); NRBC Flagged by Analyzer 0 % (0-5); Neutrophil # 6.18 X10^3/uL (2.7-7.7); Neutrophil % 63.5 % (47-70); Platelet Count 244 K/mm3 (150-450); RBC Distribution Width CV 13.2 % (11.6-14.6); RBC Distribution Width SD 45.2 fl (35.1-43.9); Red Blood Count 4.12 M/mm3 (4.2-5.4); White Blood Count 9.7 K/mm3 (4.4-11.0)
[2022-02-28 21:12] LABS: Anion Gap 9 (5-15); BUN 18 mg/dL (7-18); BUN/Creat Ratio 19.7 RATIO (10-20); Calcium,Total 9.6 mg/dL (8.5-10.1); Chloride 108 mmol/L (98-107); Creatinine, Serum 0.91 mg/dL (0.55-1.02); EST Glomerular Filtration Rate 64 mL/min (>60); Est Glom Filt Rate - Afr Amer 78 mL/min (>60); Estimated Creatinine Clearance 49.54 ml/min; Glucose 98 mg/dL (74-106); Potassium 4.2 mmol/L (3.5-5.1); Sodium Level 141 mmol/L (136-145); Troponin-I HS (w/2H Reflex) 3 pg/mL (3.0-54.0)
--- NOTE | 2022-02-28 22:05 | HP.PCM.HOS_ITS ---
HPI - General General Date of Admission: 02/28/22 Date of Service: 02/28/22 Chief Complaint: Palpitations, chest pain. HPI Narrative The patient is a 71 y/o F w/ PMHx: Obesity, HORACE on CPAP q HS, PAF, HTN, HLD, Hypothyroidism, GERD, Hx SVT, Diabetes mellitus type II who presents to the [facility] ED on 02/28/22 with history of onset palpitations and midsternal chest pressure, mild to moderate in severity, worsened with exertion starting at 1830 on day of presentation with no associated nausea, emesis, diaphoresis or dyspnea with recent Cardiology evaluation with diagnosis of atrial fibrillation with initiation of eliquis and continued coreg but given not improving prompted ED evaluation. She notes her discomfort was initially 9/10 and now is down to 5/10 in severity following initial rate improvement. Work-up in the ED included T 96.9, HR 82-117, initial BP 138/84 with most recent repeat 101/74, RR 18, 96-97% on room air, CBC w/ WBC 9.7, Hgb 13, Plts 244 with increased immature granulocytes, BMP with chloride 108, troponin 3, EKG with atrial fibrillation although evidence of flutter waves in lead I, aVR and aVL. ED discussed case wi th Dr. Angelo with initial plan of metoprolol 100 mg BID and stop coreg; but did not receive oral and was given lopressor total of 15 mg. Given increased HR discussed case with Dr. Angelo and will start patient on amiodarone drip. [facility] Medical History Atrial fibrillation Essential hypertension GERD (gastroesophageal reflux disease) Gout Hiatal hernia Hypothyroidism HORACE on CPAP Premature atrial contraction Pure hypercholesterolemia SVT (supraventricular tachycardia) Type 2 diabetes mellitus Home Medications ascorbic acid (vitamin C) 250 mg tablet 250 mg PO DAILY 09/19/20 [History Last Taken Unknown] aspirin 81 mg tablet,delayed release (Adult Low Dose Aspirin) 81 mg PO DAILY 09/19/20 [History Last Taken 10/13/20] atorvastatin 20 mg tablet 20 mg PO QHS 09/19/20 [History Last Taken Unknown] biotin 5,000 mcg disintegrating tablet 5,000 mcg PO DAILY 09/19/20 [History Last Taken Unknown] exenatide microspheres 2 mg/0.85 mL subcutaneous auto-injector 2 mg subcut QWEEK 09/19/20 [History Last Taken Unknown] ferrous sulfate 325 mg (65 mg iron) tablet 325 mg PO DAILY 09/19/20 [History Last Taken Unknown] levothyroxine 50 mcg tablet 50 mcg PO DAILY 09/19/20 [History Last Taken 10/13/20] multivitamin 1 tablet PO DAILY 09/19/20 [History Last Taken Unknown] pioglitazone 15 mg tablet 15 mg PO DAILY 09/19/20 [History Last Taken Unknown] calcium carbonate 500 mg calcium (1,250 mg) chewable tablet 500 mg PO DAILY 10/05/20 [History Last Taken Unknown] coenzyme Q10 200 mg capsule 200 mg PO DAILY 10/05/20 [History Last Taken Unknown] ketoconazole 2 % topical cream 1 applic topical DAILY PRN Rash 01/17/21 [History Last Taken Unknown] omeprazole 40 mg capsule,delayed release 40 mg PO BID 11/14/21 [History Last Taken Unknown] carvedilol 6.25 mg tablet 6.25 mg PO BID #180 tabs 02/01/22 [Rx Last Taken Unknown] apixaban 5 mg tablet (Eliquis) 5 mg PO BID #60 tabs 02/13/22 [Rx Last Taken Unknown] gabapentin 100 mg capsule 500 mg PO QHS 02/13/22 [History Last Taken Unknown] sitagliptin 50 mg-metformin 1,000 mg tablet (Janumet) 1 tab PO BID 02/13/22 [History Last Taken Unknown] meloxicam 7.5 mg tablet 7.5 mg PO PRN PRN Pain 02/28/22 [History Last Taken Unknown] Allergy/AdvReac Type Severity Reaction Status Date / Time prednisone Allergy Intermediate Hyperglycem Verified 02/28/22 20:18 ia benzonatate AdvReac Severe dizziness Verified 02/28/22 20:18 [From Tessalon Perles] codeine AdvReac Severe Anxiety/Ner Verified 02/28/22 20:18 vous hydroxyzine [From Vistaril] AdvReac Severe Hallucinati Verified 02/28/22 20:18 ons nitrofurantoin AdvReac Severe Diarrhea Verified 02/28/22 20:18 [From Macrodantin] raloxifene AdvReac Unknown Bowel Verified 02/28/22 20:18 issues acetaminophen [From Vicodin] AdvReac Anxiety/Ner Verified 02/28/22 20:18 vous hydrocodone [From Vicodin] AdvReac Anxiety/Ner Verified 02/28/22 20:18 vous Family History Mother Alzheimer disease Hypertension CVA (cerebral vascular accident) Father Diabetes Parkinson disease Heart disease Brother CAD (coronary artery disease) Diabetes Surgical History History of appendectomy History of bunionectomy History of hysterectomy History of laminectomy History of left heart catheterization (LHC) (~10/13/20) History of open reduction and internal fixation (ORIF) procedure Social History (Updated 02/28/22 @ 20:[address] Avtar Diop MD) household members: none Smoking Status: Never smoker alcohol intake: never substance use type: does not use caffeine: No ROS ROS Narrative Admission Review of Systems: CONSTITUTIONAL: No weight loss, fever, chills, + weakness or fatigue. HEENT: Eyes: No visual loss, blurred vision, double vision or yellow sclerae. Ears, Nose, Throat: No hearing loss, sneezing, congestion, runny nose or sore th roat. SKIN: No rash or itching, lesions, wounds. CARDIOVASCULAR: + chest pain, chest pressure or chest discomfort, palpitations, No edema, orthopnea, syncopal events. RESPIRATORY: No shortness of breath, cough or sputum, wheezing, hemoptysis. GASTROINTESTINAL: + Dyspepsia. No anorexia, nausea, vomiting or diarrhea, abdominal pain, melena, BRBPR. GENITOURINARY: No dysuria, frequency, urgency or retention. NEUROLOGICAL: No headache, dizziness, syncope, paralysis, ataxia, numbness or tingling in the extremities, focal weakness, change in bowel or bladder control, seizure. MUSCULOSKELETAL: No muscle, back pain, joint pain or stiffness. HEMATOLOGIC: + anemia, bleeding or bruising. LYMPHATICS: No enlarged nodes. No history of splenectomy. PSYCHIATRIC: No history of depression or anxiety. ENDOCRINOLOGIC: No reports of sweating, cold or heat intolerance. No polyuria or polydipsia. ALLERGIES: No history of asthma, hives, eczema or rhinitis. Vital Signs Vital Signs Vital Signs: 02/28/22 20:16 08/25/22 20:43 02/28/22 20:45 Temperature 96.9 F L Temperature Source Temporal Pulse Rate 103 H 82 Respiratory Rate 18 18 Respiratory Effort Short of Breath Blood Pressure 138/84 H 145/73 H Blood Pressure Mean 102 97 Pulse Ox 97 97 Oxygen Delivery Method Room Air Room Air 02/28/22 20:54 02/28/22 21:22 02/28/22 21:34 Temperature Temperature Source Pulse Rate 103 H 110 H 117 H Respiratory Rate 16 16 18 Respiratory Effort Blood Pressure 139/70 H 141/88 H 125/75 H Blood Pressure Mean 93 105 91 Pulse Ox 97 96 96 Oxygen Delivery Method Room Air Room Air Room Air 02/28/22 21:42 Temperature Temperature Source Pulse Rate 115 H Respiratory Rate 16 Respiratory Effort Blood Pressure 101/74 Blood Pressure Mean 83 Pulse Ox 96 Oxygen Delivery Method Room Air Weight Weight: 190 lb Body Mass Index (BMI) 31.1 Physical Exam Narrative Physical Examination: General: Awake, alert, oriented x 3 and cooperative, seated upright in the ED bed, notes discomfort is lessened and reports chest discomfort now 5 out of 10, improving Skin: Normal color, normal turgor, no icterus, no cyanosis. HEENT: AT/NC, EOMI, PERRLA, MMM, no carotid bruits or JVD noted. Lungs: Mildly diminished, greater bases, appropriate effort, no rales, ronchi or wheezing. Heart: Irregular irregular; no gallop, rub audible. Abdomen: Soft, obese, NTTP, ND, distant normal BS, no HSM. Extremities: No cyanosis, clubbing, or edema. Neurological: Patient awake, alert, oriented as noted, cognitive function intact; pupils equally reactive to light and accommodation, cranial nerves II- XII grossly normal, moving all 4 extremities, no focal deficits, strength mildly globally Buffy secondary to acute complaints. Psychiatric: Affect appears mildly fatigued otherwise normal, reports chest discomfort is improving, no acute evidence of depressive or anxiety feelings. Results Lab / Micro Data Result Diagrams: 02/28/22 20:30 02/28/22 20:30 Labs: Laboratory Results - last 24 hr 02/28/22 20:30: WBC 9.7, RBC 4.12 L, Hgb 13.0, Hct 38.5, MCV 93.4, MCH 31.6, MCHC 33.8, RDW Std Deviation 45.2 H, RDW Coeff of Anusha 13.2, Plt Count 244, MPV 10.3, Immature Gran % (Auto) 1.400 H, Neut % (Auto) 63.5, Lymph % (Auto) 23.3, [place] % (Auto) 8.9, Eos % (Auto) 2.0, Baso % (Auto) 0.9, Absolute Neuts (auto) 6.2, Absolute Lymphs (auto) 2.27, Nucleated RBC % 0 02/28/22 20:30: Sodium 141, Potassium 4.2, Chloride 108 H, Carbon Dioxide 24.0, Anion Gap 9, BUN 18, Creatinine 0.91, Estim Creat Clear Calc 49.54, Est GFR (MDRD) Af Amer 78, Est GFR (MDRD) Non-Af 64, BUN/Creatinine Ratio 19.7, Glucose 98, Calcium 9.6, Troponin I High Sens 3 02/28/22 20:30: Troponin I High Sens Cancelled Rhythm Strip Rhythm Strip: A-fib Rate: 145 Ectopy: None Assessment & Plan Assessment/Plan (1) Atrial fibrillation with rapid ventricular response: PLAN: Plan The patient is a 71 y/o F w/ PMHx: Obesity, HORACE on CPAP q HS, PAF, HTN, HLD, H ypothyroidism, GERD, Hx SVT, Diabetes mellitus type II who presents to the [facility] ED on 02/28/22 with history of onset palpitations and midsternal chest pressure, mild to moderate in severity, worsened with exertion starting at 1830 on day of presentation with no associated nausea, emesis, diaphoresis or dyspnea with recent Cardiology evaluation with diagnosis of atrial fibrillation with initiation of eliquis and continued coreg but given not improving prompted ED evaluation. #1. Paroxsymal atrial fibrillation with RVR with Chest pain: EKG in ED w/ atrial fibrillation w/ RVR. Patient administered Lopressor a total of 15 mg IV in ED. Will admit to PCU, maintain on telemetry, obtain cardiac enzyme serial set, obtain magnesium level, obtain ECHO, obtain TSH level, continue patient recently initiated apixaban therapy, given BP decrease and ongoing with RVR per discussion with cardiology will initiate amiodarone bolus and continue on drip. Cardiology consulted, aware and will evaluate in AM. Of note, 10/13/2020 EF 65% with squaxin multivessel coronary artery disease. Patient does have monitor in place, does not have plug, discussed with PCU staff to see if able to obtain to be able to obtain data per Cardiology discretion. #2. Hypertension: Holding beta-kiki, recent addition as noted of amiodarone bolus with drip, will await reevaluation by cardiology for oral regimen transition consideration. As needed IV hydralazine. #3. Hyperlipidemia: We will patient statin therapy. #4. Hypothyroidism: Continue home synthroid regimen, TSH pending. #5. Diabetes mellitus type II: Hold oral home regimen, ADA diet, accu checks w/ ISS. #6. Obesity: Weight loss and lifestyle changes encouraged. #7. HORACE: CPAP nightly will be continued, patient reports that she is compliant and uses nightly. #8. GERD: We will continue patient home PPI. #9. DVT prophylaxis: SCDs, continue patient home apixaban regimen. #10. CODE status: Patient HUGO is her daughter Grace and living will is currently in place. Discussed CODE status at length including difference between FULL code, DNR-CCA and DNR-CC status. Following discussions about the differences in these status, requested specifically DNR-CCA, no intubation which was clarified again to assure appropriate status placed. Advanced Care Planning Face to Face Time: 16 minutes. Charges/Coding Visit Charges Inpatient E&M: 57240 Init Hosp L3 Procedures Hospitalists Procedures: 20369 Advncd Care Plan 30 Min
[2022-02-28 22:38] LABS: Reflex Troponin-HS? (from REC) Y
[2022-02-28 22:56] LABS: Magnesium 1.6 mg/dL (1.6-2.6)
[2022-02-28] MEDS: Amiodarone 360 MG in Dextrose 5% Viaflo Bag 192.8 ML 33.3 MG CONT INF (23:16)
--- NOTE | 2022-02-28 23:23 | ECHOD_ITS ---
Reason For Study: PAF Procedure This was a 2D Doppler, Color Flow transthoracic echocardiogram. Technically difficult study due to patients body habitus. Best parasternal images taken at the end of study with patient laying on Right side. Exam performed portable in patient room. Left Ventricle Normal LV size. The estimated ejection fraction is 65 %. No evidence for diastolic dysfunction. No regional wall motion abnormalities noted. Right Ventricle Normal RV size. Normal systolic function. Atria Normal left atrium. Normal right atrium. No doppler evidence for ASD. Mitral Valve There is no mitral valve stenosis. Trivial mitral valve insufficiency. Tricuspid Valve There is no tricuspid stenosis. Trivial tricuspid valve insufficiency. Unable to estimate RV systolic pressure due to insufficient tricuspid regurgitant envelope. Aortic Valve Trisinus/trileaflet aortic valve. Aortic sclerosis, no stenosis. There is no aortic stenosis. Mild (1+) aortic valve insufficiency. Pulmonic Valve There is no pulmonic valvular stenosis. No pulmonic valve insufficiency. Great Vessels Normal aortic root. Pericardium/Pleural No pericardial effusion. MMode/2D Measurements & Calculations LVIDd: 3.9 cm IVSd: 0.91 cm LA dimension: 3.8 cm LVIDs: 2.5 cm LVPWd: 0.93 cm RVDd: 3.7 cm FS: 35.5 % LAV(MOD-bp): 43.6 ml LA A4 area: 15.5 cm2 RA A4 area: 11.7 cm2 LAV(MOD-bp) Indexed: 22.6 ml/m2 LAV(MOD-sp2): 49.9 ml LAV(MOD-sp4): 39.5 ml Time Measurements MV dec time: 0.22 sec Doppler Measurements & Calculations MV E max jose: 94.6 cm/sec Lat Peak E' Jose: 8.0 cm/sec Med Peak E' Joes: 9.2 cm/sec MV A max jose: 95.6 cm/sec E/E' lat: 11.8 E/E' med: 10.3 MV E/A: 0.99 MV V2 max: 106.1 cm/sec MV P1/2t max jose: 103.0 cm/sec Ao V2 max: 86.6 cm/sec MV max P.5 mmHg MV P1/2t: 67.8 msec Ao max P.0 mmHg MV V2 mean: 60.5 cm/sec MV dec slope: 445.1 cm/sec2 MV mean P.7 mmHg MVA(P1/2t): 3.2 cm2 MV V2 VTI: 29.4 cm AI max jose: 322.0 cm/sec LV V1 max: 89.2 cm/sec PA V2 max: 93.6 cm/sec AI max P.5 mmHg LV V1 max P.2 mmHg PA V2 mean: 67.0 cm/sec AI dec slope: 194.1 cm/sec2 AI P1/2t: 485.9 msec TR max jose: 232.7 cm/sec TR max P.7 mmHg ECHO/Echo Complete Interpretation Summary The estimated ejection fraction is 65 %. No evidence for diastolic dysfunction. Trivial mitral valve insufficiency. Mild (1+) aortic valve insufficiency. Ordering Physician: Valerie Singleton Referring Physician: Everardo Silva Performed By: Osmin Kumar RCS
[2022-02-28 23:53] LABS: Troponin-I HS 4 pg/mL (3.0-54.0)
[2022-03-01] VITALS (19 sets, daily range): BP systolic 94–123; BP diastolic 49–92; PULSE 69–117; RESP 15–25; TEMP 36.7–36.9; O2SAT 91–99
[2022-03-01 03:18] LABS: Absolute Neutrophil Count 6.2 X10^3/uL (2.0-7.7); Basophil# 0.09 X10^3/uL; Basophil% 0.9 % (0-1); Eosinophil# 0.21 X10^3/uL; Eosinophils% 2.2 % (0-5); Hematocrit 36.9 % (37-47); Hemoglobin 12.1 g/dL (12.0-15.0); Lymphocyte % 22.8 % (19-41); Mean Corp Hgb Conc 32.8 g/dL (32-36); Mean Corpuscular Hgb 30.8 pg (27.0-32.0); Mean Corpuscular Volume 93.9 fL (81-99); Mean Platelet Vol. 10.5 fl (6.2-12.0); Monocyte% 8.3 % (0-10); NRBC Flagged by Analyzer 0 % (0-5); Neutrophil # 6.18 X10^3/uL (2.7-7.7); Neutrophil % 64.1 % (47-70); Platelet Count 242 K/mm3 (150-450); RBC Distribution Width CV 13.3 % (11.6-14.6); RBC Distribution Width SD 45.7 fl (35.1-43.9); Red Blood Count 3.93 M/mm3 (4.2-5.4); White Blood Count 9.6 K/mm3 (4.4-11.0)
--- NOTE | 2022-03-01 03:34 | CPS ---
Pt unable to tolerate hospital CPAP. RN aware
[2022-03-01 03:44] LABS: Troponin-I HS 8 pg/mL (3.0-54.0)
[2022-03-01 03:45] LABS: AST(SGOT) 15 U/L (15-37); Alanine Aminotransfer ALT/SGPT 24 U/L (13-56); Albumin, Serum 3.3 g/dL (3.2-5.0); Alkaline Phosphatase 72 U/L (45-117); Anion Gap 7 (5-15); BUN 14 mg/dL (7-18); BUN/Creat Ratio 18.1 RATIO (10-20); Calcium,Total 8.8 mg/dL (8.5-10.1); Chloride 109 mmol/L (98-107); Cholesterol 126 mg/dL (200); Creatinine, Serum 0.77 mg/dL (0.55-1.02); EST Glomerular Filtration Rate 78 mL/min (>60); Est Glom Filt Rate - Afr Amer 94 mL/min (>60); Estimated Creatinine Clearance 45.09 ml/min; Globulin 3.2 g/dL (2.2-4.2); Glucose 118 mg/dL (74-106); High Density Lipoprotein 58 mg/dL; Potassium 3.9 mmol/L (3.5-5.1); Protein, Total 6.5 g/dL (6.4-8.2); Sodium Level 140 mmol/L (136-145); Thyroid Stim Hormone (TSH) 2.43 uIU/mL (0.358-3.74); Triglycerides 100 mg/dL; Very Low Density Lipoprotein 20 mg/dL (5-40)
[2022-03-01] MEDS: Levothyroxine 50 MCG Tablet PO (05:07)
[2022-03-01] MEDS: Amiodarone 360 MG in Dextrose 5% Viaflo Bag 192.8 ML 16.7 MG CONT INF (05:10)
[2022-03-01] MEDS: Acetaminophen 325 MG Tablet 650 MG PO (05:20)
--- NOTE | 2022-03-01 05:26 | EKG12_ITS ---
Test Reason : CONVERTED NSR Blood Pressure : / mmHG Vent. Rate : 068 BPM Atrial Rate : 068 BPM P-R Int : 174 ms QRS Dur : 068 ms QT Int : 388 ms P-R-T Axes : 046 028 059 degrees QTc Int : 412 ms Normal sinus rhythm Normal ECG When compared with ECG of 28-FEB-2022 20:24, MANUAL COMPARISON REQUIRED, DATA IS UNCONFIRMED Confirmed by LACY DIETRICH, NORMA ([id number]), communications editor CHERYL CALDWELL ([id number]) on 03/04/2022 9:44:19 AM Referred By: Confirmed By:CHELSEA HOUSE MD
[2022-03-01 06:51] LABS: Bedside Glucose 86 mg/dL (74-106)
[2022-03-01] MEDS: Pantoprazole Sodium 40 MG Tablet PO (09:38)
[2022-03-01] MEDS: APIXABAN 5 MG TABLET PO (09:38)
[2022-03-01] MEDS: Aspirin E.C. 81 MG Tablet PO (09:38)
[2022-03-01] MEDS: Ferrous Sulfate 325 MG Tablet PO (09:39)
--- NOTE | 2022-03-01 11:25 | CASEMGMT ---
[facility] assessment: Face to Face with patient for initial transition planning/care coordination assessment. [facility] introduced self and role at [facility], pt voices understanding and consents to assessment. Pt is sitting up in chair in no distress on room air. Pt is A/Ox4 and answers all questions appropriately.? Care providers, pharmacy,?and demographics verified/updated. ? 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 Pt states her daughter, Grace Fink, is HPOA. LNOK: Grace Fink, daughter/HPOA Living Arrangements: Pt lives alone in 1 story home with 3 steps in and states no concerns at home. Pt is independent with ADL's. Transportation: Pt drives self and states no transportation concerns. DME/HHC: Pt has the following DME: cane, crutches, BSC, shower chair, grab bars, and cpap thru [employer]. Pt states no need for any further DME. Pt states no hx of HHC or SNF. Pt referred for [facility] pt link and [facility] [employer] CL[employer] aware. Pt states no concerns with going home at time of discharge. Pt is retired. Pt does not smoke cigarettes or drink ETOH. Pt voices no further questions/concerns/needs. CM to follow for any further discharge planning/needs. Advised pt to ask for CM if any further questions/concerns/needs arise, voices understanding. Pt Goal: Home ? Plan[place] [facility]
[2022-03-01 11:41] LABS: Bedside Glucose 103 mg/dL (74-106)
[2022-03-01] MEDS: 0.9% Saline Lock 10 ML Syringe IV (13:31)
--- NOTE | 2022-03-01 13:51 | CON.PCM.CA_ITS ---
Assessment & Plan Assessment/Plan (1) Atrial fibrillation: PLAN: Currently in sinus rhythm. We will stop the amiodarone. We will try ke mirang the patient on metoprolol 100 mg p.o. twice daily instead of Coreg to see if this will keep her in sinus rhythm. Explained to the patient that if this is inadequate we may need escalation in therapy and she may end up needing antiarrhythmic therapy. Explained to her that if that is insufficient then we could consider referral to EP for possible ablation. She will follow-up with Dr. Evans as an outpatient. She can be discharged home from a cardiac standpoint. HPI Consult Data Date of Consult: 03/01/22 HPI Narrative Reason for Consultation: Atrial fibrillation HPI Narrative: SHY MOORE, is a 71 F who presents A. fib with RVR. She was given IV metoprolol initially but that did not result in sustained lowering of her heart rate. She was started on amiodarone and has converted to sinus rhythm. She was on carvedilol at home. She has already been diagnosed with A. fib and was on Eliquis. She was also on a 30-day event monitor when this happened. She is currently doing well and denies any cardiac symptoms. She did have chest pressure when she was in A. fib with RVR. She had a 2D echo which reveals preserved EF and mild aortic insufficiency. Review of systems: All systems reviewed. All else is negative except that in the [facility] Medical History Atrial fibrillation Essential hypertension GERD (gastroesophageal reflux disease) Gout Hiatal hernia Hypothyroidism HORACE on CPAP Premature atrial contraction Pure hypercholesterolemia SVT (supraventricular tachycardia) Type 2 diabetes mellitus Home Medications ascorbic acid (vitamin C) 250 mg tablet 250 mg PO DAILY 09/19/20 [History Last Taken Unknown] aspirin 81 mg tablet,delayed release (Adult Low Dose Aspirin) 81 mg PO DAILY 09/19/20 [History Last Taken 10/13/20] atorvastatin 20 mg tablet 20 mg PO QHS 09/19/20 [History Last Taken Unknown] biotin 5,000 mcg disintegrating tablet 5,000 mcg PO DAILY 09/19/20 [History Last Taken Unknown] exenatide microspheres 2 mg/0.85 mL subcutaneous auto-injector 2 mg subcut QWEEK 09/19/20 [History Last Taken Unknown] ferrous sulfate 325 mg (65 mg iron) tablet 325 mg PO DAILY 09/19/20 [History Last Taken Unknown] levothyroxine 50 mcg tablet 50 mcg PO DAILY 09/19/20 [History Last Taken 10/13/20] multivitamin 1 tablet PO DAILY 09/19/20 [History Last Taken Unknown] pioglitazone 15 mg tablet 15 mg PO DAILY 09/19/20 [History Last Taken Unknown] calcium carbonate 500 mg calcium (1,250 mg) chewable tablet 500 mg PO DAILY 10/05/20 [History Last Taken Unknown] coenzyme Q10 200 mg capsule 200 mg PO DAILY 10/05/20 [History Last Taken Unknown] ketoconazole 2 % topical cream 1 applic topical DAILY PRN Rash 01/17/21 [History Last Taken Unknown] omeprazole 40 mg capsule,delayed release 40 mg PO BID 11/14/21 [History Last Taken Unknown] carvedilol 6.25 mg tablet 6.25 mg PO BID #180 tabs 02/01/22 [Rx Last Taken Unknown] apixaban 5 mg tablet (Eliquis) 5 mg PO BID #60 tabs 02/13/22 [Rx Last Taken Unknown] gabapentin 100 mg capsule 500 mg PO QHS 02/13/22 [History Last Taken Unknown] sitagliptin 50 mg-metformin 1,000 mg tablet (Janumet) 1 tab PO BID 02/13/22 [History Last Taken Unknown] meloxicam 7.5 mg tablet 7.5 mg PO PRN PRN Pain 02/28/22 [History Last Taken Unknown] Allergy/AdvReac Type Severity Reaction Status Date / Time prednisone Allergy Intermediate Hyperglycem Verified 02/28/22 23:44 ia benzonatate AdvReac Severe dizziness Verified 02/28/22 23:44 [From Tessalon Perles] codeine AdvReac Severe Anxiety/Ner Verified 02/28/22 23:44 vous hydroxyzine [From Vistaril] AdvReac Severe Hallucinati Verified 02/28/22 23:44 ons nitrofurantoin AdvReac Severe Diarrhea Verified 02/28/22 23:44 [From Macrodantin] raloxifene AdvReac Unknown Bowel Verified 02/28/22 23:44 issues acetaminophen [From Vicodin] AdvReac Anxiety/Ner Verified 02/28/22 23:44 vous hydrocodone [From Vicodin] AdvReac Anxiety/Ner Verified 02/28/22 23:44 vous Family History Mother Alzheimer disease Hypertension CVA (cerebral vascular accident) Father Diabetes Parkinson disease Heart disease Brother CAD (coronary artery disease) Diabetes Surgical History History of appendectomy History of bunionectomy History of hysterectomy History of laminectomy History of left heart catheterization (LHC) (~10/13/20) History of open reduction and internal fixation (ORIF) procedure Social History household members: none Smoking Status: Never smoker alcohol intake: never substance use type: does not use caffeine: No Physical Exam Const alert and oriented x3 HEENT normocephalic Eyes no scleral icterus Resp normal respiratory effort Cardio regular rate Skin no rashes or lesions noted Psych mental status grossly normal Risk Stratification Risk Stratification Applicable: No Charges/Coding Visit Charges Inpatient E&M: 07839 Init Hosp L2 Objective Data Vital Signs: Vital Signs Temp Pulse Resp BP Pulse Ox O2 Del Method 98.4 F 79 18 118/52 L 99 Room Air 03/01/22 09:00 03/01/22 13:00 03/01/22 12:00 03/01/22 13:00 03/01/22 13:00 03/01/22 13:00 Oxygen Delivery Method Room Air Weight: 188 lb 7.924 oz Body Mass Index (BMI) 31.3 Intake & Output: Intake and Output for Last 24 Hours 02/27/22 02/28/22 03/01/22 23:59 23:59 23:59 Intake Total 120.76 / 127.42 961.69 / 961.69 Balance 120.76 / 127.42 961.69 / 961.69 Lab / Micro Data Result Diagrams: 03/01/22 02:55 03/01/22 02:55 Labs: Laboratory Results - last 24 hr 02/28/22 20:30: WBC 9.7, RBC 4.12 L, Hgb 13.0, Hct 38.5, MCV 93.4, MCH 31.6, MCHC 33.8, RDW Std Deviation 45.2 H, RDW Coeff of Anusha 13.2, Plt Count 244, MPV 10.3, Immature Gran % (Auto) 1.400 H, Neut % (Auto) 63.5, Lymph % (Auto) 23.3, Pondera % (Auto) 8.9, Eos % (Auto) 2.0, Baso % (Auto) 0.9, Absolute Neuts (auto) 6.2, Absolute Lymphs (auto) 2.27, Nucleated RBC % 0 02/28/22 20:30: Sodium 141, Potassium 4.2, Chloride 108 H, Carbon Dioxide 24.0, Anion Gap 9, BUN 18, Creatinine 0.91, Estim Creat Clear Calc 49.54, Est GFR (MDRD) Af Amer 78, Est GFR (MDRD) Non-Af 64, BUN/Creatinine Ratio 19.7, Glucose 98, Calcium 9.6, Troponin I High Sens 3 02/28/22 20:30: Troponin I High Sens Cancelled 02/28/22 20:30: Magnesium 1.6 02/28/22 23:15: Troponin I High Sens 4 03/01/22 02:55: WBC 9.6, RBC 3.93 L, Hgb 12.1, Hct 36.9 L, MCV 93.9, MCH 30.8, MCHC 32.8, RDW Std Deviation 45.7 H, RDW Coeff of Anusha 13.3, Plt Count 242, MPV 10.5, Immature Gran % (Auto) 1.700 H, Neut % (Auto) 64.1, Lymph % (Auto) 22.8, Pondera % (Auto) 8.3, Eos % (Auto) 2.2, Baso % (Auto) 0.9, Absolute Neuts (auto) 6.2, Absolute Lymphs (auto) 2.20, Nucleated RBC % 0 03/01/22 02:55: Sodium 140, Potassium 3.9, Chloride 109 H, Carbon Dioxide 24.0, Anion Gap 7, BUN 14, Creatinine 0.77, Estim Creat Clear Calc 45.09, Est GFR (MDRD) Af Amer 94, Est GFR (MDRD) Non-Af 78, BUN/Creatinine Ratio 18.1, Glucose 118 H, Calcium 8.8, Total Bilirubin 0.30, AST 15, ALT 24, Alkaline Phosphatase 72, Total Protein 6.5, Albumin 3.3, Globulin 3.2, Albumin/Globulin Ratio 1.0, Triglycerides 100, Cholesterol 126, LDL Cholesterol 48, VLDL Cholesterol 20, HDL Cholesterol 58, TSH 2.43 03/01/22 02:55: Troponin I High Sens 8 03/01/22 06:27: POC Glucose 86 03/01/22 11:19: POC Glucose 103 Rhythm Strip Rhythm Strip: A-fib Rate: 145 Ectopy: None Cardiology Labs/Tests 02/28/22 20:30: WBC 9.7, RBC 4.12 L, Hgb 13.0, Hct 38.5, MCV 93.4, MCH 31.6, MCHC 33.8, Plt Count 244, MPV 10.3, Immature Gran % (Auto) 1.400 H, Neut % (Auto) 63.5, Lymph % (Auto) 23.3, Pondera % (Auto) 8.9, Eos % (Auto) 2.0, Baso % (Auto) 0.9, Absolute Neuts (auto) 6.2, Nucleated RBC % 0 02/28/22 20:30: Sodium 141, Potassium 4.2, Chloride 108 H, Carbon Dioxide 24.0, Anion Gap 9, BUN 18, Creatinine 0.91, Est GFR (MDRD) Af Amer 78, Est GFR (MDRD) Non-Af 64, BUN/Creatinine Ratio 19.7, Glucose 98, Calcium 9.6 02/28/22 20:30: Magnesium 1.6 03/01/22 02:55: WBC 9.6, RBC 3.93 L, Hgb 12.1, Hct 36.9 L, MCV 93.9, MCH 30.8, MCHC 32.8, Plt Count 242, MPV 10.5, Immature Gran % (Auto) 1.700 H, Neut % (Auto) 64.1, Lymph % (Auto) 22.8, Pondera % (Auto) 8.3, Eos % (Auto) 2.2, Baso % (Auto) 0.9, Absolute Neuts (auto) 6.2, Nucleated RBC % 0 03/01/22 02:55: Sodium 140, Potassium 3.9, Chloride 109 H, Carbon Dioxide 24.0, Anion Gap 7, BUN 14, Creatinine 0.77, Est GFR (MDRD) Af Amer 94, Est GFR (MDRD) Non-Af 78, BUN/Creatinine Ratio 18.1, Glucose 118 H, Calcium 8.8, Total Bilirubin 0.30, Triglycerides 100, Cholesterol 126, LDL Cholesterol 48, VLDL Cholesterol 20, HDL Cholesterol 58 Rhythm: EKG: ECHO: Stress Test: Cardiac Cath: PCI: CT Surgery: Holter monitor: EPS: PPM: CXR: Chest CT Scan: Radiography Diagnostic Testing: Radiology Impression Echocardiogram 02/28/22 23:23 Interpretation Summary The estimated ejection fraction is 65 %. No evidence for diastolic dysfunction. Trivial mitral valve insufficiency. Mild (1+) aortic valve insufficiency. Ordering Physician: Valerie Singleton Referring Physician: Everardo Silva Performed By: Osmin Kumar RCS
--- NOTE | 2022-03-01 14:11 | DCINST_ITS ---
Discharge Instructions Diet Discharge Diet: 1800 Calorie Control Diet Activity Discharge Activity: Return to Normal Activity Weight Bearing Status: Full weight bearing Follow Up Care Test Results: Test results from this visit will be discussed in further detail at your follow- up appointment, if applicable. Discharge Plan Admission Admit Date/Time: 02/28/22 22:18 Primary Reason for Your Visit: A-fib with rapid ventricular response Attending Provider: Marco Kenny Primary Care Provider: Everardo Silva Consulting Providers: Valerie Singleton ; Haris Angelo Instructions Additional Instructions / Restrictions: Do not take Ibuprofen, Aleve, Mobic or any non steroidal anti-flammatory meds due to your use of Eliquis Discharge Orders/Prescriptions Prescriptions: New metoprolol tartrate 100 mg tablet 100 mg PO BID Qty: 60 0RF Continued calcium carbonate 500 mg calcium (1,250 mg) tablet,chewable 500 mg PO DAILY coenzyme Q10 200 mg capsule 200 mg PO DAILY aspirin [Adult Low Dose Aspirin] 81 mg tablet,delayed release (DR/EC) 81 mg PO DAILY Hold Instructions: Taking full strength ASA for now. atorvastatin 20 mg tablet 20 mg PO QHS biotin 5,000 mcg tablet,disintegrating 5,000 mcg PO DAILY exenatide microspheres 2 mg/0.85 mL auto-injector 2 mg SC QWEEK ferrous sulfate 325 mg (65 mg iron) tablet 325 mg PO DAILY levothyroxine 50 mcg tablet 50 mcg PO DAILY multivitamin Tablet 1 tablet PO DAILY pioglitazone 15 mg tablet 15 mg PO DAILY ascorbic acid (vitamin C) 250 mg tablet 250 mg PO DAILY ketoconazole 2 % cream 1 applic TOPICAL DAILY PRN (Reason: Rash) gabapentin 100 mg capsule 500 mg PO QHS omeprazole 40 mg capsule,delayed release(DR/EC) 40 mg PO BID Janumet 50-1,000 mg tablet 1 tab PO BID Eliquis 5 mg tablet 5 mg PO BID Qty: 60 12RF Discontinued meloxicam 7.5 mg Tablet 7.5 mg PO PRN PRN (Reason: Pain) carvedilol 6.25 mg tablet 6.25 mg PO BID Qty: 180 4RF Rx Instructions: must administer with a meal/food Referrals / Follow Up: Tan Gandhi MD [Med Staff - Active Staff] - See Referral Note (within 3-4 weeks) Shira,Everardo, DO [Primary Care Provider] - Within 2 Weeks Disposition Disposition (needs filled in before D/C Order can be placed): Home, Self Care
--- NOTE | 2022-03-01 14:28 | DS.PCM_ITS ---
Providers Date of Admission: 02/28/22 Date of Discharge: 03/01/22 Primary Care Physician: Dr. Everardo Silva, Consultations 03/01/22 07:06 Consult: Cardiology Routine Consulting Provider: Haris Angelo Reason for Consult: a-fib EMERGENT Consult: No MD Notified: Yes Date Notified: 03/01/22 Time Notified: 07:06 Method of Notification: Verbal Reason For Visit: PAF WITH RVR Diagnosis Discharge Diagnosis (1) Atrial fibrillation: Status: Acute Code(s): I48.91 - Unspecified atrial fibrillation Plan 1. Atrial fibrillation with RVR-converted to sinus rhythm #2 essential hypertension #3 hypothyroidism #4 type 2 diabetes #5 obstructive sleep apnea #6 hyperlipidemia Medications at Discharge Home Medications ascorbic acid (vitamin C) 250 mg tablet 250 mg PO DAILY 09/19/20 aspirin 81 mg tablet,delayed release (Adult Low Dose Aspirin) 81 mg PO DAILY 09/19/20 atorvastatin 20 mg tablet 20 mg PO QHS 09/19/20 biotin 5,000 mcg disintegrating tablet 5,000 mcg PO DAILY 09/19/20 exenatide microspheres 2 mg/0.85 mL subcutaneous auto-injector 2 mg subcut QWEEK 09/19/20 ferrous sulfate 325 mg (65 mg iron) tablet 325 mg PO DAILY 09/19/20 levothyroxine 50 mcg tablet 50 mcg PO DAILY 09/19/20 multivitamin 1 tablet PO DAILY 09/19/20 pioglitazone 15 mg tablet 15 mg PO DAILY 09/19/20 calcium carbonate 500 mg calcium (1,250 mg) chewable tablet 500 mg PO DAILY 10/05/20 coenzyme Q10 200 mg capsule 200 mg PO DAILY 10/05/20 ketoconazole 2 % topical cream 1 applic topical DAILY PRN Rash 01/17/21 omeprazole 40 mg capsule,delayed release 40 mg PO BID 11/14/21 apixaban 5 mg tablet (Eliquis) 5 mg PO BID #60 tabs 02/13/22 gabapentin 100 mg capsule 500 mg PO QHS 02/13/22 sitagliptin 50 mg-metformin 1,000 mg tablet (Janumet) 1 tab PO BID 02/13/22 metoprolol tartrate 100 mg tablet 100 mg PO BID #60 tabs 03/01/22 Hospital Course Operations None Procedures 2-D Echocardiogram Summary of Care Provided Minutes Spent on Discharge: 31 Hospital Course: This 71-year-old white female was seen in the emergency room at [facility] with complaints of palpitation, she had a history of atrial fibrillation was on carvedilol. Patient also complained of chest pressure, she denied any diaphoresis, nausea, or vomiting. Patient also denied any dyspnea. Examination in the ER revealed the patient to be in atrial fibrillation with a rapid ventricular response there was no ischemic changes noted on EKG. Troponins were negative in the emergency room, metoprolol IV was ordered. Cardiology was contacted and advised the patient could be discharged if her heart rate was controlled with metoprolol 100 mg twice a day and discontinuing her carvedilol. Unfortunately the patient's heart rate was not under control and it was felt she would benefit from hospitalization. Patient was admitted to PCU, she had continued problems with fast heart rate and was ultimately placed on IV amiodarone and cardiology was consulted. Patient converted to sinus rhythm on amiodarone, she had an echocardiogram performed which showed a normal EF. Cardiology recommended discharge home on metoprolol. On 03/01/2022, patient was seen and examined: On examination she appeared in good health and spirits, she does not appear to be in any distress. Vital signs as documented. Skin warm and dry and without overt rashes. Neck without JVD, thyroid appears normal, trachea is midline, neck is supple. Lungs clear, normal air movement was noted. Heart exam notable for regular rhythm, normal sounds and absence of murmurs, rubs or gallops. Abdomen unremarkable and without evidence of organomegaly, masses, or abdominal aortic enlargement, bowel sounds are present in all 4 quadrants, no abdominal tenderness was noted. Extremities nonedematous, no cyanosis was noted, no clubbing was noted. Neuro: Cranial nerves II through XII are grossly intact, no focal motor deficits were noted, sensation to light touch and pinprick is intact, motor exam 5/5 throughout. Psych: Patient is alert and oriented x3, she does not appear anxious or depressed, she does not appear agitated. Patient was discharged home in stable condition on 03/01/2022. Weight / BMI Weight Weight: 85.5 kg Body Mass Index (BMI) 31.3 ABG / Lab / Microbiology Data Result Diagrams: 03/01/22 02:55 03/01/22 02:55 Laboratory: Laboratory Results - last 24 hr 02/28/22 20:30: WBC 9.7, RBC 4.12 L, Hgb 13.0, Hct 38.5, MCV 93.4, MCH 31.6, M CHC 33.8, RDW Std Deviation 45.2 H, RDW Coeff of Anusha 13.2, Plt Count 244, MPV 10.3, Immature Gran % (Auto) 1.400 H, Neut % (Auto) 63.5, Lymph % (Auto) 23.3, [place] % (Auto) 8.9, Eos % (Auto) 2.0, Baso % (Auto) 0.9, Absolute Neuts (auto) 6.2, Absolute Lymphs (auto) 2.27, Nucleated RBC % 0 02/28/22 20:30: Sodium 141, Potassium 4.2, Chloride 108 H, Carbon Dioxide 24.0, Anion Gap 9, BUN 18, Creatinine 0.91, Estim Creat Clear Calc 49.54, Est GFR (MDRD) Af Amer 78, Est GFR (MDRD) Non-Af 64, BUN/Creatinine Ratio 19.7, Glucose 98, Calcium 9.6, Troponin I High Sens 3 02/28/22 20:30: Troponin I High Sens Cancelled 02/28/22 20:30: Magnesium 1.6 02/28/22 23:15: Troponin I High Sens 4 03/01/22 02:55: WBC 9.6, RBC 3.93 L, Hgb 12.1, Hct 36.9 L, MCV 93.9, MCH 30.8, MCHC 32.8, RDW Std Deviation 45.7 H, RDW Coeff of Anusha 13.3, Plt Count 242, MPV 10.5, Immature Gran % (Auto) 1.700 H, Neut % (Auto) 64.1, Lymph % (Auto) 22.8, [place] % (Auto) 8.3, Eos % (Auto) 2.2, Baso % (Auto) 0.9, Absolute Neuts (auto) 6.2, Absolute Lymphs (auto) 2.20, Nucleated RBC % 0 03/01/22 02:55: Sodium 140, Potassium 3.9, Chloride 109 H, Carbon Dioxide 24.0, Anion Gap 7, BUN 14, Creatinine 0.77, Estim Creat Clear Calc 45.09, Est GFR (MDRD) Af Amer 94, Est GFR (MDRD) Non-Af 78, BUN/Creatinine Ratio 18.1, Glucose 118 H, Calcium 8.8, Total Bilirubin 0.30, AST 15, ALT 24, Alkaline Phosphatase 72, Total Protein 6.5, Albumin 3.3, Globulin 3.2, Albumin/Globulin Ratio 1.0, Triglycerides 100, Cholesterol 126, LDL Cholesterol 48, VLDL Cholesterol 20, HDL Cholesterol 58, TSH 2.43 03/01/22 02:55: Troponin I High Sens 8 03/01/22 06:27: POC Glucose 86 03/01/22 11:19: POC Glucose 103 Radiography Diagnostic Testing: Radiology Impression Echocardiogram 02/28/22 23:23 Interpretation Summary The estimated ejection fraction is 65 %. No evidence for diastolic dysfunction. Trivial mitral valve insufficiency. Mild (1+) aortic valve insufficiency. Ordering Physician: Valerie Singleton Referring Physician: Everardo Silva Performed By: Osmin Kumar RCS D/C Instructions Discharge Diet: 1800 Calorie Control Diet Weight Bearing Status: Full weight bearing Meaningful Use Info Meaningful Use Diagnoses (Choose all that apply): None applicable Discharge Plan Admission Admit Date/Time: 02/28/22 22:18 Primary Reason for Your Visit: A-fib with rapid ventricular response Attending Provider: Marco Kenny Primary Care Provider: Everardo Silva Consulting Providers: Valerie Singleton ; Haris Angelo Instructions Additional Instructions / Restrictions: Do not take Ibuprofen, Aleve, Mobic or any non steroidal anti-flammatory meds du e to your use of Eliquis Discharge Orders/Prescriptions Prescriptions: New metoprolol tartrate 100 mg tablet 100 mg PO BID Qty: 60 0RF Continued calcium carbonate 500 mg calcium (1,250 mg) tablet,chewable 500 mg PO DAILY coenzyme Q10 200 mg capsule 200 mg PO DAILY aspirin [Adult Low Dose Aspirin] 81 mg tablet,delayed release (DR/EC) 81 mg PO DAILY Hold Instructions: Taking full strength ASA for now. atorvastatin 20 mg tablet 20 mg PO QHS biotin 5,000 mcg tablet,disintegrating 5,000 mcg PO DAILY exenatide microspheres 2 mg/0.85 mL auto-injector 2 mg SC QWEEK ferrous sulfate 325 mg (65 mg iron) tablet 325 mg PO DAILY levothyroxine 50 mcg tablet 50 mcg PO DAILY multivitamin Tablet 1 tablet PO DAILY pioglitazone 15 mg tablet 15 mg PO DAILY ascorbic acid (vitamin C) 250 mg tablet 250 mg PO DAILY ketoconazole 2 % cream 1 applic TOPICAL DAILY PRN (Reason: Rash) gabapentin 100 mg capsule 500 mg PO QHS omeprazole 40 mg capsule,delayed release(DR/EC) 40 mg PO BID Janumet 50-1,000 mg tablet 1 tab PO BID Eliquis 5 mg tablet 5 mg PO BID Qty: 60 12RF Discontinued meloxicam 7.5 mg Tablet 7.5 mg PO PRN PRN (Reason: Pain) carvedilol 6.25 mg tablet 6.25 mg PO BID Qty: 180 4RF Rx Instructions: must administer with a meal/food Referrals / Follow Up: Tan Gandhi MD [Med Staff - Active Staff] - See Referral Note (within 3-4 weeks) Everardo Silva DO [Primary Care Provider] - Within 2 Weeks Disposition Disposition (needs filled in before D/C Order can be placed): Home, Self Care Charges/Coding Visit Charges Inpatient E&M: 90038 Disch Hosp
--- NOTE | 2022-03-01 14:33 | CASEMGMT ---
Per [employer], pt agreeable to [facility] pt link program. Stephanie CARBAJAL CM
== END 2022-03-01 15:13 | disposition home or self-care (01) | DRG 310 ==
LOC: ED 21:53 → PCU 22:56
PROVIDERS: Admitting Provider Family Medicine; Emergency Provider Emergency Medicine; PCP Preventive Medicine Occupational Medicine; Visit Provider Internal Medicine
DX: I48.91 Unspecified atrial fibrillation (principal); E03.9 Hypothyroidism, unspecified; E11.9 Type 2 diabetes mellitus without complications; G47.33 Obstructive sleep apnea (adult) (pediatric); E78.5 Hyperlipidemia, unspecified; E78.00 Pure hypercholesterolemia, unspecified; I10 Essential (primary) hypertension; Z79.01 Long term (current) use of anticoagulants; Z79.1 Long term (current) use of non-steroidal anti-inflammatories (NSAID)
CPT/HCPCS: 36415; 80048; 80053; 80061; 82962; 83735; 84443; 84484; 85025; 93005; 93306; 99284; Q9957; A4216

== ENCOUNTER → 2022-04-16 | Outpatient (CLI) | payer MEDICARE, OTHER, SELFPAY ==
[2022-04-16 12:45] LABS: Vitamin B12 168 pg/mL (211-911)
[2022-04-19 05:07] LABS: Free Kappa Light Chains 30.5 mg/L (3.3-19.4)
== END | disposition home or self-care (01) ==
LOC: MTLAB 10:23
PROVIDERS: PCP Preventive Medicine Occupational Medicine; Referring Provider Psychiatry & Neurology Neurology; Visit Provider Psychiatry & Neurology Neurology
DX: G62.9 Polyneuropathy, unspecified (principal)
CPT/HCPCS: 36415; 82607; 82746; 83883; 84425

== ENCOUNTER → 2022-09-03 | Outpatient (CLI) | payer MEDICARE, OTHER, SELFPAY ==
[2022-09-05 17:07] LABS: Albumin 3.6 g/dL (2.9-4.4); Alpha-1-Globulins 0.2 g/dL (0.0-0.4); Alpha-2-Globulins 0.9 g/dL (0.4-1.0); Gamma Globulin 0.5 g/dL (0.4-1.8); Immunoglobulin A 169 mg/dL (64-422); Immunoglobulin G 663 mg/dL (586-1602); Immunoglobulin M 52 mg/dL (26-217); PROEL- TOTAL PROTEIN 6.2 g/dL (6.0-8.5)
[2022-09-05 18:47] LABS: Intrinsic Factor Ab 16.8 AU/mL (0.0-1.1)
== END | disposition home or self-care (01) ==
LOC: MTLAB 09:51
PROVIDERS: PCP Preventive Medicine Occupational Medicine; Referring Provider Psychiatry & Neurology Neurology; Visit Provider Psychiatry & Neurology Neurology
DX: G62.9 Polyneuropathy, unspecified (principal); E53.8 Deficiency of other specified B group vitamins
CPT/HCPCS: 36415; 82784; 84165; 86334; 86335; 86340

== ENCOUNTER → 2022-11-08 | Outpatient (CLI) | payer MEDICARE, OTHER, SELFPAY ==
[2022-11-08 10:02] LABS: Vitamin B12 1648 pg/mL (211-911)
== END | disposition home or self-care (01) ==
LOC: LAB 08:26
PROVIDERS: PCP Preventive Medicine Occupational Medicine; Referring Provider Psychiatry & Neurology Neurology; Visit Provider Psychiatry & Neurology Neurology
DX: E53.8 Deficiency of other specified B group vitamins (principal)
CPT/HCPCS: 36415; 82607

== ENCOUNTER → 2023-01-02 | Outpatient (CLI) | payer MEDICARE, OTHER, SELFPAY | END | disposition home or self-care (01) | LOC: PSN 07:10 | PROVIDERS: PCP Preventive Medicine Occupational Medicine; Referring Provider Nurse Practitioner Gerontology; Visit Provider Nurse Practitioner Gerontology | DX: R00.2 Palpitations (principal); I47.1 Supraventricular tachycardia; R00.0 Tachycardia, unspecified | CPT/HCPCS: 93225; 93226 ==

== ENCOUNTER → 2023-02-18 | Outpatient (CLI) | payer MEDICARE, OTHER, SELFPAY ==
--- NOTE | 2023-02-18 08:01 | CDU_ITS ---
Reason For Study: LT CAROTID BRUIT Rt. Velocities/BP Lt. Velocities/BP Prox CCA 90.8/16.0 cm/sec. Prox CCA 134.4/24.8 cm/sec. Mid CCA 105.1/17.1 cm/sec. Mid CCA 86.9/15.7 cm/sec. Dist CCA 73.5/13.1 cm/sec. Dist CCA 86.9/23.0 cm/sec. Prox ICA 57.0/13.1 cm/sec. Prox ICA 60.1/13.8 cm/sec. Mid ICA 72.4/16.4 cm/sec. Mid ICA 80.9/21.5 cm/sec. Dist ICA 80.1/19.7 cm/sec. Dist ICA 102.9/28.1 cm/sec. Rt. ICA/CCA = 80.1/105.1=0.8. Lt. ICA/CCA = 102.9/86.9=1.2. Prox ECA 107.0/4.7 cm/sec. Prox ECA 119.8/6.6 cm/sec. Rt. Vert. 53.1/13.0 cm/sec. Lt. Vert. 52.6/10.9 cm/sec. Right Extracranial There is intimal thickening but no significant atherosclerotic plaque noted in the right common carotid artery. There is heterogeneous, irregular atherosclerotic plaque noted in the right internal carotid artery. There is no significant atherosclerotic plaque noted in the right external carotid artery. Antegrade flow is noted in the right vertebral artery. Left Extracranial There is intimal thickening but no significant atherosclerotic plaque noted in the left common carotid artery. There is homogeneous, irregular atherosclerotic plaque noted in the left internal carotid artery. There is no significant atherosclerotic plaque noted in the left external carotid artery. Antegrade flow is noted in the left vertebral artery. Procedure Carotid Duplex 55643. This is a Carotid Duplex examination using B-mode, color flow and specral Doppler. Exam performed in department. VL/Carotid Duplex Ultrasound Interpretation Summary Irregular calcific plaque at the proximal right internal carotid artery with le ss than 50% stenosis Less than 50% stenosis right external carotid artery Minimal irregular plaque at the proximal left internal carotid artery with less than 50% stenosis Less than 50% stenosis left external carotid artery Patent and antegrade vertebral arteries bilaterally Ordering Physician: Sarath Alvarez Referring Physician: Everardo Silva Performed By: Lilliam Blkae, AIDAN, RVT
== END | disposition home or self-care (01) ==
LOC: CVS 08:01
PROVIDERS: PCP Preventive Medicine Occupational Medicine; Referring Provider Psychiatry & Neurology Neurology; Visit Provider Psychiatry & Neurology Neurology
DX: R09.89 Other specified symptoms and signs involving the circulatory and respiratory systems (principal)
CPT/HCPCS: 93880

== ENCOUNTER 2024-01-07 21:06 | Emergency (ER) | payer MEDICARE, OTHER, SELFPAY ==
[2024-01-07 21:06] VITALS: BP 112/93; PULSE 125; RESP 20; TEMP 36.2; O2SAT 99; BMI 32.3
--- NOTE | 2024-01-07 21:23 | RAD_ITS ---
INDICATION: chest pain EXAMINATION/TECHNIQUE: X-RAY - XR Chest 1 View AP portable. 9:26 PM COMPARISON: 10/05/2020 FINDINGS: LINES/DEVICES: None. LUNGS: No consolidation. No pneumothorax. MEDIASTINUM: Unremarkable. CARDIAC SILHOUETTE: Not enlarged. BONES AND SOFT TISSUES: No acute abnormalities. RAD/Chest 1 View (Portable) IMPRESSION: No evidence of active intrathoracic disease. Electronically Signed: Jaymie Quevedo MD at 22:12 EDT ,
--- NOTE | 2024-01-07 21:23 | EKG12_ITS ---
Test Reason : CHEST PRESSURE Blood Pressure : / mmHG Vent. Rate : 115 BPM Atrial Rate : 000 BPM P-R Int : 000 ms QRS Dur : 058 ms QT Int : 306 ms P-R-T Axes : 000 031 061 degrees QTc Int : 423 ms Atrial fibrillation with rapid ventricular response Abnormal ECG Confirmed by KEANU DIETRICH, EDGARDO ([id number]), general expeditor CHERYL CALDWELL ([id number]) on 01/09/2024 9:34:03 AM Referred By: Confirmed By:EDGARDO COLUNGA MD
[2024-01-07 21:39] LABS: Absolute Lymphocyte Count 3.06 X10^3/uL (0.83-4.51); Absolute Neutrophil Count 5.1 X10^3/uL (2.0-7.7); Basophil# 0.13 X10^3/uL; Basophil% 1.3 % (0-1); Eosinophil# 0.17 X10^3/uL; Eosinophils% 1.7 % (0-5); Hematocrit 39.8 % (37-47); Lymphocyte # 3.06 X10^3/ul (0.83-4.51); Lymphocyte % 31.5 % (19-41); Mean Corp Hgb Conc 32.7 g/dL (32-36); Mean Corpuscular Hgb 31.5 pg (27.0-32.0); Mean Corpuscular Volume 96.4 fL (81-99); Mean Platelet Vol. 10.3 fl (6.2-12.0); Monocyte# 0.96 X10^3/uL; Monocyte% 9.9 % (0-10); NRBC Flagged by Analyzer 0 % (0-5); Neutrophil # 5.14 X10^3/uL (2.7-7.7); Neutrophil % 52.9 % (47-70); Platelet Count 276 K/mm3 (150-450); RBC Distribution Width CV 13.4 % (11.6-14.6); RBC Distribution Width SD 47.5 fl (35.1-43.9); Red Blood Count 4.13 M/mm3 (4.2-5.4); White Blood Count 9.7 K/mm3 (4.4-11.0)
[2024-01-07 21:58] LABS: Anion Gap 9 (5-15); BUN 17 mg/dL (7-18); Calcium,Total 9.6 mg/dL (8.5-10.1); Chloride 107 mmol/L (98-107); EST Glomerular Filtration Rate 57 mL/min (>60); Est Glom Filt Rate - Afr Amer 69 mL/min (>60); Estimated Creatinine Clearance 53.29 ml/min; Glucose 114 mg/dL (74-106); Potassium 4.1 mmol/L (3.5-5.1); Sodium Level 140 mmol/L (136-145); Troponin-I HS (w/2H Reflex) 3 pg/mL (3.0-54.0)
[2024-01-07 22:22] VITALS: BP 133/99; PULSE 109; RESP 18; O2SAT 97
[2024-01-07] MEDS: Metoprolol Tartrate 5 MG/5 ML Vial IV (22:35)
--- NOTE | 2024-01-07 22:40 | EDS_ITS ---
HPI History of Present Illness Chief Complaint: Palpitations Informant: patient and family Narrative Narrative: 73-year-old female presenting with about 3 or so hours worth of feeling like she went into A-fib, it has been rapid at times, she has had some chest tightness and did feel near syncopal at 1 point, but she denies any syncope. No dyspnea, diaphoresis, nausea or vomiting. No focal neurologic symptoms, denies recent illness/injury. She follows with the [facility] for her A-fib, she has been anticoagulated and on some type of beta-kiki for couple of years, it was changed at 1 point to carvedilol which she is on now but she has had no recent changes in the last couple months. She is been compliant with her medications. From speaking with her about her symptoms and day-to-day life, it sounds like she typically is not in A-fib and is symptomatic whenever she goes into it. When I suggest that she and family confirmed this, and the fact that she has had monitors before. [facility] Medical History PAF (paroxysmal atrial fibrillation) Fatigue Thyroid disease Osteoporosis Osteoarthritis Pneumonia Atrial fibrillation Gout HORACE on CPAP Premature atrial contraction Type 2 diabetes mellitus Hiatal hernia GERD (gastroesophageal reflux disease) Hypothyroidism Pure hypercholesterolemia SVT (supraventricular tachycardia) Essential hypertension Home Medications ?Medication ?Instructions ?Recorded ?Last Taken ?Type aspirin 81 mg tablet,delayed 81 mg PO DAILY 09/19/20 10/13/20 History release (Adult Low Dose Aspirin) atorvastatin 20 mg tablet 20 mg PO QHS 09/19/20 Unknown History exenatide microspheres 2 mg/0.85 2 mg subcut QWEEK 09/19/20 Unknown History mL subcutaneous auto-injector ferrous sulfate 325 mg (65 mg 325 mg PO DAILY 09/19/20 Unknown History iron) tablet levothyroxine 50 mcg tablet 50 mcg PO DAILY 09/19/20 10/13/20 History multivitamin 1 tablet PO DAILY 09/19/20 Unknown History pioglitazone 15 mg tablet 15 mg PO DAILY 09/19/20 Unknown History calcium carbonate 500 mg PO DAILY 10/05/20 Unknown History ketoconazole 2 % topical cream 1 applic topical DAILY PRN Rash 01/17/21 Unknown History omeprazole 40 mg capsule,delayed 40 mg PO BID 11/14/21 Unknown History release sitagliptin phosphate 50 1 tab PO BID 09/03/22 Unknown History mg-metformin 1,000 mg tablet (Janumet) apixaban 5 mg tablet (Eliquis) 5 mg PO BID #180 tabs 03/05/23 Unknown Rx ascorbic acid (vitamin C) 250 mg 500 mg PO DAILY 05/02/23 Unknown History tablet biotin 5,000 mcg disintegrating 2,500 mcg PO DAILY 05/02/23 Unknown History tablet coenzyme Q10 200 mg capsule 100 mg PO DAILY 05/02/23 Unknown History duloxetine 30 mg capsule,delayed 30 mg PO QHS #90 caps 11/11/23 Unknown Rx release carvedilol 12.5 mg tablet 12.5 mg PO BID #180 tabs 11/27/23 Unknown Rx Allergy/AdvReac Type Severity Reaction Status Date / Time prednisone Allergy Intermediate Hyperglycem Verified 01/07/24 21:08 ia benzonatate (From Tessalon AdvReac Severe dizziness Verified 01/07/24 21:08 Perles) codeine AdvReac Severe Anxiety/Ner Verified 01/07/24 21:08 vous hydroxyzine (From Vistaril) AdvReac Severe Hallucinati Verified 01/07/24 21:08 ons nitrofurantoin (From AdvReac Severe Diarrhea Verified 01/07/24 21:08 Macrodantin) diltiazem AdvReac Intermediate Dizzy and Verified 01/07/24 21:08 lightheaded metoprolol AdvReac Intermediate Severe Verified 01/07/24 21:08 hair loss raloxifene AdvReac Unknown Bowel Verified 01/07/24 21:08 issues hydrocodone (From Vicodin) AdvReac Anxiety/Ner Verified 01/07/24 21:08 vous Family History Mother Alzheimer disease Hypertension CVA (cerebral vascular accident) Arthritis Thyroid disorder Father Diabetes Parkinson disease Heart disease Brother CAD (coronary artery disease) Diabetes Heart disease Grandmother CVA (cerebral vascular accident) Grandfather CVA (cerebral vascular accident) Uncle CVA (cerebral vascular accident) Surgical History History of cataract removal with insertion of prosthetic lens History of left heart catheterization (LHC) (~10/13/20) History of open reduction and internal fixation (ORIF) procedure History of hysterectomy History of appendectomy History of laminectomy History of bunionectomy Social History household members: none Smoking Status: Never smoker second hand exposure: No alcohol intake: never substance use type: does not use caffeine: No what type of physical activity do you participate in: walking frequency: 3-4 times per week olive/oriental orthodox: Buddhist seatbelt use: always ROS ROS ED Constitutional Constitutional ED: Denies chills or fever(s) Eyes Eyes: Denies change in vision or diplopia ENT ENT ED: Denies rhinorrhea or sore throat Cardiovascular Cardiovascular: Reports as per HPI, chest pain, palpitations and racing heartbeat Respiratory/Chest Respiratory/Chest: Denies cough or dyspnea Gastrointestinal Gastrointestinal: Denies abdominal pain, diarrhea, nausea or vomiting Genitourinary Genitourinary ED: Denies dysuria or hematuria Musculoskeletal Musculoskeletal: Denies back pain or neck pain Integumentary Denies abscess or rash Neurologic Neurologic: Denies headache(s), paresthesias or weakness Psychiatric Psychiatric: Denies anxiety or suicidal thoughts EXAM Physical Exam Const Vital Signs: 01/07/24 21:06 01/07/24 22:22 01/07/24 23:00 Temperature 97.2 F L Temperature Source Temporal Pulse Rate 125 H 109 H 96 Pulse Rate [1 (Initial Baseline)] Respiratory Rate 20 H 18 18 Respiratory Rate [1 (Initial Baseline)] Blood Pressure 112/93 H 133/99 H 99/60 Blood Pressure [1 (Initial Baseline)] Blood Pressure Mean 99 110 73 Pulse Ox 99 97 Oxygen Delivery Method Room Air Room Air Oxygen Delivery Method [1 (Initial Baseline)] Oxygen Flow Rate (L/min) 01/07/24 23:39 01/08/24 00:12 01/08/24 00:12 Temperature Temperature Source Pulse Rate 105 H 134 H Pulse Rate [1 (Initial Baseline)] 134 H Respiratory Rate 18 18 Respiratory Rate [1 (Initial Baseline)] 18 Blood Pressure 108/59 L 81/68 L Blood Pressure [1 (Initial Baseline)] 81/68 L Blood Pressure Mean 75 Pulse Ox 93 Oxygen Delivery Method Nasal Cannula Oxygen Delivery Method [1 (Initial Baseline)] Nasal Cannula Oxygen Flow Rate (L/min) 2 01/08/24 00:18 01/08/24 00:23 01/08/24 00:28 Temperature Temperature Source Pulse Rate Pulse Rate [1 (Initial Baseline)] Respiratory Rate Respiratory Rate [1 (Initial Baseline)] Blood Pressure Blood Pressure [1 (Initial Baseline)] Blood Pressure Mean Pulse Ox Oxygen Delivery Method Nasal Cannula Nasal Cannula Nasal Cannula Oxygen Delivery Method [1 (Initial Baseline)] Oxygen Flow Rate (L/min) 2 2 2 01/08/24 00:34 01/08/24 01:14 Temperature Temperature Source Pulse Rate 78 81 Pulse Rate [1 (Initial Baseline)] Respiratory Rate 18 20 H Respiratory Rate [1 (Initial Baseline)] Blood Pressure 122/71 H 120/67 Blood Pressure [1 (Initial Baseline)] Blood Pressure Mean 88 84 Pulse Ox 98 95 Oxygen Delivery Method Nasal Cannula Room Air Oxygen Delivery Method [1 (Initial Baseline)] Oxygen Flow Rate (L/min) 2 Positive well nourished and well developed Constitutional Narrative: Well-appearing, conversive General Appearance ED: well developed and NAD HEENT Reports moist mucous membranes normocephalic and atraumatic Eyes PERRL and EOMs intact bilaterally Neck full ROM, supple and no JVD Chest Wall inspection of chest normal and palpation of chest normal Resp normal respiratory effort and clear to auscultation bilaterally Cardio Rhythm: abnormal rhythm irregularly irregular Heart Sounds: murmur systolic II/ crescendo-decrescendo Peripheral Pulses: pulses 2+ throughout GI non-tender and non-distended Auscultation: normoactive bowel sounds Palpation: soft Back/Spine no CVA tenderness General Back: other FROM Extremity normal to inspection General Extremety ED: Negative for edema, pulses abnormal or tenderness General Extremity: Negative for edema or pulses abnormal Neuro oriented x3, CN's II-XII intact bilaterally and no sensory deficits noted Sensorium / Orientation: awake and alert Motor Exam: strength 5/5 throughout Skin no rashes or lesions noted and no wounds Heart Score History: Slightly/Non-Suspicious ECG: Nonspecific Repolarization Age: >/= 65 years Risk Factors: 1 or 2 Risk Factors Troponin: </= Normal Limit Score: 4 MDM MDM MDM Narrative Medical decision making narrative: Patient's history in EMR and her clinical history are consistent with paroxysmal atrial fibrillation, and she started having symptoms about 3 hours prior to arrival. Her initial EKG does not appear to show an injury pattern and her initial troponin is negative, the rest of the labs are reviewed as well. We will await a second troponin but in the meantime try to slow her down with medication since she ate about 5 hours prior to my evaluation. We did discuss electric cardioversion which would be indicated for this patient, not emergently since she is doing well clinically and her blood pressure is stable. They are amenable to trying the medications first, she typically spontaneously converts but it has been a while tonight compared to usual, couple hours. Given her medication reactions, we did try an IV dose of metoprolol initially, this helped bring her heart rate down but still over 110 on average, and her symptoms resolved. Her delta troponin is 0, and actually went down from 4 to 3. Her pressure was still borderline and she was mild RVR, discussed with Dr. Gandhi who agreed with my recommendation to the patient and family of doing electrocardioversion. Patient was sedated and cardioversion was attempted see the procedure note; I discussed again with cardiology who advised rate control rather than further attempts at pharmacologic cardioversion. Upon allowing the patient to recover from anesthesia and have her heart rate gradually come down it was apparent that she was in sinus rhythm. Patient was observed in the ED, see below. Repeat EKG shows no acute ischemic abnormalities, sinus rhythm at a rate of 79. Patient was ambulatory without symptoms or recurrence. Given this and the fact that she has 2 single-digit troponins, she is stable for discharge and close outpatient follow-up unless this recurs again at which point she is encouraged to call cardiology and/or return to the ER she is comfortable with that plan was discussed with patient and daughter. Under the circumstances I recommend continuing her medications at the doses they are currently at. Patient is being observed in the emergency department post cardioversion/procedural sedation to monitor for recovery and dysrhythmia recurrence. Observation started on 01/08/2024 at 0025, upon emergence from sedation. Patient did well, had no recurrent chest pain or palpitations nor dysrhythmia, she was monitored on the monitor throughout this time except for when she walked to the bathroom and felt a little lightheaded. We continued to have her rest and get IV fluids until she was feeling better enough to safely go home. After ambulation she was on the monitor again and displayed sinus rhythm in the 80s, with no ectopy and no dysrhythmia or atrial fibrillation. Observation was ended on 01/08/24 at 0150 at discharge, she was discharged to home with family. History & Record Review Additional record(s) reviewed:: Prior outpatient record (Echo: No aortic stenosis, no significant cardiomyopathy) Lab Data Attestation: I reviewed the patient's lab results. Labs: Laboratory Results - last 24 hr 01/07/24 01/07/24 21:11 21:20 WBC 9.7 RBC 4.13 L Hgb 13.0 Hct 39.8 MCV 96.4 MCH 31.5 MCHC 32.7 RDW Std Deviation 47.5 H RDW Coeff of [place]ush[place] 13.4 Plt Count 276 MPV 10.3 Immature Gran % (Auto) 2.700 H Neut % (Auto) 52.9 Lymph % (Auto) 31.5 [place] % (Auto) 9.9 Eos % (Auto) 1.7 Baso % (Auto) 1.3 H Absolute Neuts (auto) 5.1 Absolute Lymphs (auto) 3.06 Nucleated RBC % 0 Sodium 140 Potassium 4.1 Chloride 107 Carbon Dioxide 24.0 Anion Gap 9 BUN 17 Creatinine 1.00 Estim Creat Clear Calc 53.29 Est GFR (MDRD) Af Amer 69 Est GFR (MDRD) Non-Af 57 L BUN/Creatinine Ratio 17.0 Glucose 114 H Calcium 9.6 Troponin I High Sens 4 3 Radiography Diagnostic Testing: Clinical Impression(s) from Imaging Studies Chest X-Ray 01/07/24 21:23 IMPRESSION: No evidence of active intrathoracic disease. Electronically Signed: Jaymie Quevedo MD at 22:12 EDT , Rhythm Strip Rhythm Strip: A-fib Rate: 130 Ectopy: None EKG Initial EKG: Attestation: I personally reviewed and interpreted this EKG as follows: Interpretation: Atrial Fibrillation (With RVR) and Non-Specific ST Changes Prior EKG tracings: available for review Prior: Changed (Prior EKG sinus rhythm, but morphology same) Follow-up EKG: Attestation: I personally reviewed and interpreted this EKG as follows: Interpretation: Sinus Rhythm and No Acute Injury Pattern Prior: Changed (Now normal EKG, sinus rhythm at 79) Management Discussion w/another healthcare provider: [employer] (cardiology Dr. Gandhi) Procedures Procedural Sedation 1 (Initial Baseline): Consent Signed: Yes Any Problems With Anesthesia: No You/Your family experience fever (hyperthermia) w/anesthesia: No Sedation medication: Etomidate Dose: 10 Route: IV Total Moderate Sedation Units: 13 Maliampati Score: Class II ASA Classification: II Comment:: On monitor with prophylactic nasal cannula oxygenation and IV fluids, end-tidal CO2 monitoring, airway equipment at the bedside. Tolerated well with no complications. Other Procedures Procedure(s): Electrocardioversion: Informed consent obtained, patient under procedural sedation with etomidate uneventfully see above, pretreated with fentanyl and Zofran. Pads anterior-posterior position, good reading on the ZOLL. Synchronized cardioversion of atrial fibrillation attempted 3 times with sequential increase in energy, 200 J biphasic, 250 J biphasic, 300 J biphasic, all appeared to be unsuccessful, but she became more tachycardic with them, and difficult to assess whether she was in sinus tachycardia with frequent PACs or A-fib. Therefore she was allowed to recover from anesthesia and to rest until her heart rate came down at which point it appeared to show a sinus rhythm, confirmed by EKG. No complications. Critical Care Time Critical Care Time: Yes Critical care time (excluding procedures): 30-74 minutes (34 min), Including time spent:, Discussing w/Patient &/or Family/Vocational Rehabilitation Administrator, Discussing w/Consultants and Performing Direct Patient Care at Bedside Discharge Plan Triage Chief Complaint: Palpitations ED Provider: Fritz Purvis Dx/Rx/DC Orders Clinical Impression: Atrial fibrillation with RVR, Chest tightness Instructions: AFib Dc Prescriptions: No Action calcium carbonate 500 mg calcium (1,250 mg) tablet,chewable 500 mg PO DAILY coenzyme Q10 200 mg capsule 100 mg PO DAILY aspirin [Adult Low Dose Aspirin] 81 mg tablet,delayed release (DR/EC) 81 mg PO DAILY atorvastatin 20 mg tablet 20 mg PO QHS exenatide microspheres 2 mg/0.85 mL auto-injector 2 mg SC QWEEK ferrous sulfate 325 mg (65 mg iron) tablet 325 mg PO DAILY levothyroxine 50 mcg tablet 50 mcg PO DAILY multivitamin Tablet 1 tablet PO DAILY pioglitazone 15 mg tablet 15 mg PO DAILY ketoconazole 2 % cream 1 applic TOPICAL DAILY PRN (Reason: Rash) ascorbic acid (vitamin C) 250 mg tablet 500 mg PO DAILY biotin 5,000 mcg tablet,disintegrating 2,500 mcg PO DAILY omeprazole 40 mg capsule,delayed release(DR/EC) 40 mg PO BID Janumet 50-1,000 mg tablet 1 tab PO BID duloxetine 30 mg capsule,delayed release(DR/EC) 30 mg PO QHS Qty: 90 3RF Eliquis 5 mg tablet 5 mg PO BID Qty: 180 3RF carvedilol 12.5 mg tablet 12.5 mg PO BID Qty: 180 3RF Rx Instructions: must administer with a meal/food Primary Care Provider: Everardo Silva Referrals: Tan Gandhi MD [Med Staff - Active Staff] - 1-2 Weeks Everardo Silva DO [Primary Care Provider] - Print Language: Greenlandic Disposition Disposition: Home, Self Care
[2024-01-07 23:00] VITALS: BP 99/60; PULSE 96; RESP 18
[2024-01-07 23:32] LABS: Reflex Troponin-HS? (from REC) Y
[2024-01-07 23:39] VITALS: BP 108/59; PULSE 105; RESP 18
[2024-01-07 23:58] LABS: Troponin-I HS 4 pg/mL (3.0-54.0)
[2024-01-08] VITALS (7 sets, daily range): BP systolic 81–122; BP diastolic 67–78; PULSE 78–134; RESP 16–20; TEMP 36.6; O2SAT 93–98
[2024-01-08] MEDS: fentaNYL 100 MCG/2 ML Ampul 25 MCG IV (00:07)
[2024-01-08] MEDS: Ondansetron 4 MG/2 ML Vial IV (00:07)
[2024-01-08] MEDS: Etomidate 20 MG/10 ML Vial 10 MG IV (00:10)
[2024-01-08] MEDS: 0.9% Normal Saline (500mL Bag) 500 ML 999 ML IV (00:19)
--- NOTE | 2024-01-08 00:55 | EKG12_ITS ---
Test Reason : REPEAT Blood Pressure : / mmHG Vent. Rate : 079 BPM Atrial Rate : 079 BPM P-R Int : 178 ms QRS Dur : 056 ms QT Int : 346 ms P-R-T Axes : 054 025 058 degrees QTc Int : 396 ms Normal sinus rhythm Normal ECG Confirmed by KEANU DIETRICH, EDGARDO ([id number]), editor news CHERYL CALDWELL ([id number]) on 01/09/2024 9:34:25 AM Referred By: Confirmed By:EDGARDO COLUNGA MD
== END 2024-01-08 01:56 | disposition home or self-care (01) ==
PROVIDERS: Emergency Provider Emergency Medicine; PCP Preventive Medicine Occupational Medicine; Visit Provider Emergency Medicine
DX: I48.91 Unspecified atrial fibrillation (principal); E11.9 Type 2 diabetes mellitus without complications; E78.00 Pure hypercholesterolemia, unspecified; R07.89 Other chest pain; I10 Essential (primary) hypertension; R00.2 Palpitations; Z82.49 Family history of ischemic heart disease and other diseases of the circulatory system; Z90.710 Acquired absence of both cervix and uterus; E03.9 Hypothyroidism, unspecified; K21.9 Gastro-esophageal reflux disease without esophagitis; G47.33 Obstructive sleep apnea (adult) (pediatric); Z99.89 Dependence on other enabling machines and devices
CPT/HCPCS: 71045; 80048; 84484; 85025; 92960; 93005; 96361; 96374; 99152; 99284; J7030; A4216; J2405

== ENCOUNTER → 2024-02-05 | Outpatient (CLI) | payer MEDICARE, OTHER, SELFPAY | END | disposition home or self-care (01) | PROVIDERS: PCP Preventive Medicine Occupational Medicine; Referring Provider Physician Assistant Medical; Visit Provider Physician Assistant Medical | DX: I48.0 Paroxysmal atrial fibrillation (principal); R00.0 Tachycardia, unspecified | CPT/HCPCS: 93225; 93226 ==

== ENCOUNTER → 2024-02-06 | Outpatient (CLI) | payer MEDICARE, OTHER, SELFPAY ==
--- NOTE | 2024-02-06 12:58 | CT_ITS ---
STUDY: CT ABDOMEN AND PELVIS WITH AND WITHOUT CONTRAST REASON FOR EXAM: Female, 73 years old. Gross hematuria RADIATION DOSAGE (If Supplied By Facility): CTDIvol = ( 22.05 ) mGy, DLP = ( 3885.64 ) mGycm TECHNIQUE: Transaxial images were obtained from the dome of the diaphragm to the symphysis pubis without oral contrast. IV 100mL Isovue-300 was administered. Sagittal and coronal images were reconstructed. Individualized dose optimization techniques were used for this CT. COMPARISON: None. FINDINGS: The visualized lung bases are unremarkable. Coronary artery calcification. Normal liver. Normal gallbladder and extrahepatic biliary system. Normal spleen. Normal pancreas. Normal bilateral adrenal glands. Normal right kidney. Normal left kidney. Normal visualized stomach. Findings suggestive of a diverticulum in the second portion of the duodenum. Normal colon. The appendix is visualized and appears normal. There is diffuse atherosclerotic calcification of the abdominal aorta, without a demonstrated aneurysm. Normal inferior vena cava. Normal retroperitoneum. The urinary bladder is not adequately distended for detailed evaluation. There is absence of the uterus consistent with a prior hysterectomy. Normal abdominal wall. There are diffuse degenerative changes of the visualized lumbar spine. CT/CT Abd/Pelvis W/WO Contrast IMPRESSION: No evidence of a ureteral obstruction. 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 Electronically Signed: Dinh Stewart MD at 15:14 EDT ,
== END | disposition home or self-care (01) ==
LOC: CT 12:57
PROVIDERS: PCP Preventive Medicine Occupational Medicine; Referring Provider Urology; Visit Provider Urology
DX: R31.0 Gross hematuria (principal)
CPT/HCPCS: 74178; Q9967

== ENCOUNTER → 2024-02-24 | Outpatient (CLI) | payer MEDICARE, OTHER, SELFPAY ==
--- NOTE | 2024-02-24 | CYSPIN_PTH ---
PATIENT: SHY MOORE LOC: [facility] U#:[id number] AGE/SX: 73/F ROOM: RE02/24/[address]: Dr. Pearl Levy MD : 1950 BED: DIS: 02/24/2024 SPEC #: [id number] RECD: 02/24/24 15:00 STATUS: SANDRA RENik #: [id number] LEIGH ANN: 02/24/24 00:[address]: Pearl Levy DEPT: CYTOLOGY RECD BY: Agustin Xiao ENTERED: 02/25/24 08:46 SP TYPE: CYSPIN FL OTHR DR: Dr. Everardo Silva, Tissues: Urine Procedures: Pap Stain (control) Special Stain Group II Cytospin Fluid HEADER OPERATION: Not noted PRE-OP DIAGNOSIS: Gross hematuria TISSUE SUBMITTED: Urine for cytology DIAGNOSIS CYTOLOGY Urine for cytology (cytospins): Non diagnostic (Brittany category I) See comment. AM.mr 02/25/2024 COMMENT The specimen contains rare epithelial cells. Clinical correlation is suggested. The Brittany System for urine cytology diagnostic categorization was used in the evaluation of this case. CYTOLOGY STUDY Slides are reviewed. CYTOLOGY GROSS Received is 7.5 ml of hazy-yellow fluid labeled with the patient's name and and designated per the requisition as urine. Submitted for cytology preparation. Mr 02/25/2024 TC:5 CPT: 42951
[2024-02-24 16:51] LABS: Cytology, Body Fluid / CSF SEE PATHOLOGY REPORT
== END | disposition home or self-care (01) ==
PROVIDERS: PCP Preventive Medicine Occupational Medicine; Referring Provider Urology; Visit Provider Urology
DX: R31.0 Gross hematuria (principal)
CPT/HCPCS: 88108; 88313

== ENCOUNTER → 2024-03-02 | Outpatient (CLI) | payer MEDICARE, OTHER, SELFPAY ==
--- NOTE | 2024-03-02 18:08 | CYSPIN_PTH ---
PATIENT: SHY MOORE LOC: [facility] U#:[id number] AGE/SX: 73/F ROOM: RE03/02/[address]: Dr. Pearl Levy MD : 1950 BED: DIS: 03/02/2024 SPEC #: [id number] RECD: 03/03/24 11:32 STATUS: SANDRA RENik #: [id number] LEIGH ANN: 03/02/24 18:[address]: Pearl Levy DEPT: CYTOLOGY RECD BY: Silvina Carnes ENTERED: 03/03/24 11:33 SP TYPE: CYSPIN FL OTHR DR: Dr. Everardo Silva DO Tissues: Cytologic material, NOS Procedures: Pap Stain (control) Special Stain Group II Cytospin Fluid HEADER OPERATION: Not noted PRE-OP DIAGNOSIS: Gross hematuria TISSUE SUBMITTED: Urine for cytology DIAGNOSIS CYTOLOGY Urine for cytology (cytospin and cellblock): Rare atypical urothelial cells present (Brittany System Category III). See comment. AM/mr 03/04/2024 COMMENT The Brittany System for urine cytology diagnostic categorization was used in the evaluation of this case. CYTOLOGY STUDY Slides are reviewed. CYTOLOGY GROSS Received is 40 ml of hazy-yellow fluid labeled with the patient's name and and designated per the requisition as urine. Submitted for cytology preparation. Mr 03/03/2024 TC:? CPT: 29145,91802
[2024-03-02 18:09] LABS: Cytology, Body Fluid / CSF SEE PATHOLOGY REPORT
== END | disposition home or self-care (01) ==
PROVIDERS: PCP Preventive Medicine Occupational Medicine; Referring Provider Urology; Visit Provider Urology
DX: R31.0 Gross hematuria (principal)
CPT/HCPCS: 88108; 88313

== ENCOUNTER 2024-03-06 21:02 | Emergency (ER) | payer MEDICARE, OTHER, SELFPAY ==
[2024-03-06 21:06] VITALS: PULSE 166; RESP 19; TEMP 36.6; BMI 29.2
--- NOTE | 2024-03-06 21:10 | EKG12_ITS ---
Test Reason : PALPS Blood Pressure : / mmHG Vent. Rate : 165 BPM Atrial Rate : 165 BPM P-R Int : 142 ms QRS Dur : 066 ms QT Int : 224 ms P-R-T Axes : 000 031 084 degrees QTc Int : 371 ms Critical Test Result: High HR ATRIAL FLUTTER Nonspecific ST and T wave abnormality Abnormal ECG Confirmed by KEANU DIETRICH, EDGARDO ([id number]), continuity editor VIJAY MARQUEZ ([id number]) on 03/09/2024 8:15:20 AM Referred By: KADE Confirmed By:EDGARDO COLUNGA MD
[2024-03-06] MEDS: Aspirin 81 MG TAB.CHEW 324 MG PO (21:14)
--- NOTE | 2024-03-06 21:23 | ED.VIS.CHEST ---
HPI History of Present Illness Chief Complaint: Chest Pain Detail of Chief Complaint: Accelerated heart rate since around 6:30 p.m. Informant: patient Onset/Context/Timing Onset: Today and Hours Timing: Intermittent Location: Substernal Current Severity: Mild Maximum Severity: Mild Worsened By: Nothing Relieved By: Nothing Associated Symptoms: Positive for Palpitations; Negative for Nausea, Vomiting, Diaphoresis, Dyspnea, Cough, Fever, Lightheadedness or Acid Reflux Narrative Narrative: 73-year-old female history of both prior A-fib and SVT on Eliquis. Also history of diabetes. Prior heart cath. She has not needed any stents. She has never had heart surgery. States around 639 accelerated heart rate. And came in to have evaluated. Currently denies any chest pain or shortness of breath. She has had some mild intermittent chest pain with accelerated heart rate tonight. Denies recent illness. Denies nausea, vomiting or diarrhea. Prior Similar Symptoms: Yes Recent Illness/Hospitalization: No CVD Risk Factors: Positive for Diabetes PE Risk Factors: Negative for Recent Travel/Surgery, Recent Immobilization, Prior DVT or PE, Cancer or OCP + Smoking + >/=35 TAD Risk Factors: Negative for Marfan's Syndrome [facility] Medical History PAF (paroxysmal atrial fibrillation) Fatigue Thyroid disease Osteoporosis Osteoarthritis Pneumonia Atrial fibrillation Gout HORACE on CPAP Premature atrial contraction Type 2 diabetes mellitus Hiatal hernia GERD (gastroesophageal reflux disease) Hypothyroidism Pure hypercholesterolemia SVT (supraventricular tachycardia) Essential hypertension Home Medications ?Medication ?Instructions ?Recorded ?Last Taken ?Type aspirin 81 mg tablet,delayed 81 mg PO DAILY 09/19/20 10/13/20 History release (Adult Low Dose Aspirin) atorvastatin 20 mg tablet 20 mg PO QHS 09/19/20 Unknown History exenatide microspheres 2 mg/0.85 2 mg subcut QWEEK 09/19/20 Unknown History mL subcutaneous auto-injector ferrous sulfate 325 mg (65 mg 325 mg PO DAILY 09/19/20 Unknown History iron) tablet levothyroxine 50 mcg tablet 50 mcg PO DAILY 09/19/20 10/13/20 History multivitamin 1 tablet PO DAILY 09/19/20 Unknown History pioglitazone 15 mg tablet 15 mg PO DAILY 09/19/20 Unknown History calcium carbonate 500 mg PO DAILY 10/05/20 Unknown History ketoconazole 2 % topical cream 1 applic topical DAILY PRN Rash 01/17/21 Unknown History omeprazole 40 mg capsule,delayed 40 mg PO BID 11/14/21 Unknown History release sitagliptin phosphate 50 1 tab PO BID 09/03/22 Unknown History mg-metformin 1,000 mg tablet (Janumet) ascorbic acid (vitamin C) 250 mg 500 mg PO DAILY 05/02/23 Unknown History tablet biotin 5,000 mcg disintegrating 2,500 mcg PO DAILY 05/02/23 Unknown History tablet duloxetine 30 mg capsule,delayed 30 mg PO QHS #90 caps 11/11/23 Unknown Rx release carvedilol 12.5 mg tablet 12.5 mg PO BID #180 tabs 11/27/23 Unknown Rx apixaban 5 mg tablet (Eliquis) 5 mg PO BID #180 TABLETS 01/20/24 Unknown Rx Allergy/AdvReac Type Severity Reaction Status Date / Time prednisone Allergy Intermediate Hyperglycem Verified 01/07/24 21:08 ia benzonatate (From Tessalon AdvReac Severe dizziness Verified 01/07/24 21:08 Perles) codeine AdvReac Severe Anxiety/Ner Verified 01/07/24 21:08 vous hydroxyzine (From Vistaril) AdvReac Severe Hallucinati Verified 01/07/24 21:08 ons nitrofurantoin (From AdvReac Severe Diarrhea Verified 01/07/24 21:08 Macrodantin) diltiazem AdvReac Intermediate Dizzy and Verified 01/07/24 21:08 lightheaded metoprolol AdvReac Intermediate Severe Verified 01/07/24 21:08 hair loss raloxifene AdvReac Unknown Bowel Verified 01/07/24 21:08 issues hydrocodone (From Vicodin) AdvReac Anxiety/Ner Verified 01/07/24 21:08 vous Family History Mother Alzheimer disease Hypertension CVA (cerebral vascular accident) Arthritis Thyroid disorder Father Diabetes Parkinson disease Heart disease Brother CAD (coronary artery disease) Diabetes Heart disease Grandmother CVA (cerebral vascular accident) Grandfather CVA (cerebral vascular accident) Uncle CVA (cerebral vascular accident) Surgical History History of cataract removal with insertion of prosthetic lens History of left heart catheterization (LHC) (~10/13/20) History of open reduction and internal fixation (ORIF) procedure History of hysterectomy History of appendectomy History of laminectomy History of bunionectomy Social History household members: none Smoking Status: Never smoker second hand exposure: No alcohol intake: never substance use type: does not use caffeine: No what type of physical activity do you participate in: walking frequency: 3-4 times per week olive/taoism: Orthodoxy seatbelt use: always ROS ROS ED ROS Narrative Palpitations. Denies recent illness. Intermittent chest pain tonight. Constitutional Constitutional ED: Denies chills or fever(s) Eyes Eyes: Reports none ENT ENT ED: Denies ear pain Cardiovascular Cardiovascular: Reports as per HPI, chest pain, palpitations and racing heartbeat Respiratory/Chest Respiratory/Chest: Denies cough or dyspnea Gastrointestinal Gastrointestinal: Denies abdominal pain Genitourinary Genitourinary ED: Denies dysuria or hematuria Musculoskeletal Musculoskeletal: Denies arthralgias Integumentary Denies abscess Neurologic Neurologic: Denies headache(s) Psychiatric Psychiatric: Denies anxiety or depression Endocrine Endocrinology: Denies cold intolerance Hematologic/Lymphatic Hematologic/Lymphatic: Reports easy bleeding, easy bruising and other Details: On the blood thinner Eliquis. ; Denies lymphadenopathy Allergic/Immunologic Allergic/Immunologic ED: Denies mouth swelling, tongue swelling or urticaria EXAM Physical Exam Narrative Exam Narrative: Well-appearing 73-year-old female. Vital signs stable afebrile. H EENT exam unremarkable. Neck nontender no JVD. Lungs clear to auscultation bilaterally. Heart tachycardic rate of 102 165. She is intermittent SVT. But also be in sinus rhythm. H EENT exam unremarkable. Neck nontender. Lungs clear. Heart intermittent sinus rhythm intermittent SVT. Abdomen soft nontender. Moving all 4 extremities. Nontender no edema. Normal strength. She is awake and alert. No focal motor deficits. Const Vital Signs: 03/06/24 21:06 03/06/24 21:11 03/06/24 21:12 Temperature 97.9 F Temperature Source Oral Pulse Rate 166 H Respiratory Rate 19 H Respiratory Effort Normal Non-Labored Blood Pressure Blood Pressure Mean Pulse Ox Oxygen Delivery Method Room Air Room Air 03/06/24 22:02 Temperature Temperature Source Pulse Rate 105 H Respiratory Rate 20 H Respiratory Effort Blood Pressure 108/70 Blood Pressure Mean 82 Pulse Ox 96 Oxygen Delivery Method Room Air Positive well nourished and well developed; Negative for cachectic, contractures or unkempt General Appearance ED: well developed and NAD; Negative for unkempt, cachectic, contractures or pallor Nutritional Appearance: Negative for cachectic HEENT Reports moist mucous membranes; Denies dry mucous membranes normocephalic and atraumatic; Negative for trauma or tenderness Mouth ED: No dry mucous membranes Mouth: No dry mucous membranes Eyes PERRL and EOMs intact bilaterally General Eye ED: Negative for pale conjunctiva, scleral icterus or other Neck no lymphadenopathy, supple and no JVD General: Negative for tenderness Chest Wall inspection of chest normal and palpation of chest normal Chest: Negative for tenderness Resp normal respiratory effort and clear to auscultation bilaterally Effort and Inspection: Negative for respiratory distress Auscultation: Negative for rales, rhonchi, wheezes or diminished lung sounds Cardio regular rate, regular rhythm, S1 normal heart sound, S2 normal heart sound and no murmurs Rate: tachycardic and other Other Details: Intermittent sinus rhythm and SVT. GI normal to inspection, nondistended, normoactive bowel sounds, soft to palpation, non-tender, non-distended and no masses Back/Spine no CVA tenderness and no thoracic nor lumbar tenderness General Back: Negative for CVA tenderness Cervical Spine: Negative for cervical spine tenderness Extremity normal to inspection General Extremety ED: Negative for edema, pulses abnormal or tenderness General Extremity: Negative for edema or pulses abnormal Neuro oriented x3 and CN's II-XII intact bilaterally Sensorium / Orientation: awake, alert, oriented to person, oriented to place and oriented to time; Negative for confused, lethargic or stuporous Motor Exam: strength 5/5 throughout Psych mental status grossly normal Appearance: Negative for unkempt Attitude: No agitated Mood & Affect: Negative for depressed, anxious or tearful Skin no rashes or lesions noted and no wounds General Skin Exam: Negative for jaundice or pallor Rashes: No rashes noted Trauma: Negative for abrasion, laceration or puncture MDM MDM MDM Narrative Medical decision making narrative: 73-year-old female intermittent tachycardia looks like SVT also has a history of A-fib on the blood thinner and Eliquis. Currently she does not need medications because she is in and out of the rhythm. Cardiac workup. If she is in a sustained tachycardia she will be to be treated with Identicard for SVT or Cardizem for A-fib RVR. Repeat exam patient is currently doing well at 10 PM. She is in no sinus rhythm. Consistently. Currently there is no tachycardia either A-fib nor flutter nor SVT. She converted on her own was not given any medication because it was not needed. She is resting comfortably without symptoms. We went over her test results. Patient doing well at 10:35 PM. She is in sinus rhythm. We discussed SVT versus A-fib RVR. 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 She does not want to be admitted and wants be discharged home. I had a lengthy discussion both her and her family at bedside. History & Record Review Discussion w/independent historian: Patient Additional record(s) reviewed:: Prior inpatient record, Prior outpatient record, Prior ED visit and Prior labs Lab Data Attestation: I reviewed the patient's lab results. Lab results narrative: CBC normal. White count 10. H&H 14 and 43. Platelets 272. Electrolytes show gap 11. BUN and creatinine of 18 and 1. Glucose 129. Troponin 3. Chest x-ray normal. Labs: Laboratory Results - last 24 hr 03/06/24 21:14 WBC 10.3 RBC 4.55 Hgb 14.1 Hct 43.2 MCV 94.9 MCH 31.0 MCHC 32.6 RDW Std Deviation 45.7 H RDW Coeff of Anusha 13.2 Plt Count 272 MPV 10.6 Immature Gran % (Auto) 2.100 H Neut % (Auto) 55.2 Lymph % (Auto) 30.2 Bourbon % (Auto) 9.6 Eos % (Auto) 1.6 Baso % (Auto) 1.3 H Absolute Neuts (auto) 5.7 Absolute Lymphs (auto) 3.12 Nucleated RBC % 0 Sodium 141 Potassium 4.2 Chloride 110 H Carbon Dioxide 20.0 L Anion Gap 11 BUN 18 Creatinine 1.06 H Estim Creat Clear Calc 47.81 Est GFR (MDRD) Af Amer 65 Est GFR (MDRD) Non-Af 54 L BUN/Creatinine Ratio 17.0 Glucose 129 H Calcium 10.5 H Troponin I High Sens 3 Radiography Chest X-Ray - ED: 1 View, Read by ED Physician, Normal, Heart, Lungs, Mediastinum, Bony Structures, No Acute Disease and Chronic Changes Diagnostic Testing: Chest x-ray, portable, single view, interpreted by myself shows normal cardiac silhouette. Normal mediastinum. Normal lung sánchez. No acute abnormality. Chronic changes. Rhythm Strip Rhythm Strip: SVT versus A-fib RVR Rate: 165 Ectopy: None EKG Initial EKG: Attestation: I personally reviewed and interpreted this EKG as follows: Interpretation: Atrial Fibrillation and SVT Comments: Tachycardia rate of 165 it is either SVT versus A-fib RVR or atrial flutter. No signs of VT or ischemia. Discharge Plan Triage Chief Complaint: Chest Pain ED Provider: Jeff Olmstead Dx/Rx/DC Orders Clinical Impression: Atrial fibrillation Instructions: ED AFIB Prescriptions: No Action calcium carbonate 500 mg calcium (1,250 mg) tablet,chewable 500 mg PO DAILY aspirin [Adult Low Dose Aspirin] 81 mg tablet,delayed release (DR/EC) 81 mg PO DAILY atorvastatin 20 mg tablet 20 mg PO QHS exenatide microspheres 2 mg/0.85 mL auto-injector 2 mg SC QWEEK ferrous sulfate 325 mg (65 mg iron) tablet 325 mg PO DAILY levothyroxine 50 mcg tablet 50 mcg PO DAILY multivitamin Tablet 1 tablet PO DAILY pioglitazone 15 mg tablet 15 mg PO DAILY ketoconazole 2 % cream 1 applic TOPICAL DAILY PRN (Reason: Rash) ascorbic acid (vitamin C) 250 mg tablet 500 mg PO DAILY biotin 5,000 mcg tablet,disintegrating 2,500 mcg PO DAILY omeprazole 40 mg capsule,delayed release(DR/EC) 40 mg PO BID Janumet 50-1,000 mg tablet 1 tab PO BID duloxetine 30 mg capsule,delayed release(DR/EC) 30 mg PO QHS Qty: 90 3RF carvedilol 12.5 mg tablet 12.5 mg PO BID Qty: 180 3RF Rx Instructions: must administer with a meal/food Eliquis 5 mg tablet 5 mg PO BID Qty: 180 3RF Primary Care Provider: Everardo Silva Referrals: Everardo Silva DO [Primary Care Provider] - As Needed Activity Restrictions/Additional Instructions: The rhythm you are in could either be A-fib with a fast ventricular rate or could have been supraventricular tachycardia known as SVT. He spontaneously converted without us giving you any medication. Follow-up with your doctor. The medication you are on carvedilol should help control this. If needed they could increase the dosage. Continue your blood thinner the apixaban or Eliquis. Return if worse. Print Language: Romanian Disposition Disposition: Home, Self Care
--- NOTE | 2024-03-06 21:27 | RAD_ITS ---
EXAM: XR CHEST, 1 VIEW CLINICAL INDICATION: CHEST PAIN TECHNIQUE: Frontal view of the chest. COMPARISON: January 07, 2024, October 05, 2020. FINDINGS: LUNGS AND PLEURAL SPACES: Unremarkable. No consolidation or edema. No pneumothorax. No effusion. HEART: Unremarkable. Cardiac silhouette not enlarged. MEDIASTINUM: Central airways and mediastinal contour are unremarkable. BONES/JOINTS: Unremarkable. No acute fracture. SOFT TISSUES: Unremarkable. UPPER ABDOMEN: Mildly elevated left hemidiaphragm, stable. Moderate bowel gas inferior to the left hemidiaphragm, similar to prior exam. RAD/Chest 1 View (Portable) IMPRESSION: Stable chest. No acute abnormality. Electronically Signed: Leana Ramachandran MD at 23:01 EDT ,
[2024-03-06 21:43] LABS: Absolute Lymphocyte Count 3.12 X10^3/uL (0.83-4.51); Absolute Neutrophil Count 5.7 X10^3/uL (2.0-7.7); Basophil# 0.13 X10^3/uL; Basophil% 1.3 % (0-1); Eosinophil# 0.17 X10^3/uL; Eosinophils% 1.6 % (0-5); Hematocrit 43.2 % (37-47); Hemoglobin 14.1 g/dL (12.0-15.0); Lymphocyte # 3.12 X10^3/ul (0.83-4.51); Lymphocyte % 30.2 % (19-41); Mean Corp Hgb Conc 32.6 g/dL (32-36); Mean Corpuscular Volume 94.9 fL (81-99); Mean Platelet Vol. 10.6 fl (6.2-12.0); Monocyte# 0.99 X10^3/uL; Monocyte% 9.6 % (0-10); NRBC Flagged by Analyzer 0 % (0-5); Neutrophil # 5.69 X10^3/uL (2.7-7.7); Neutrophil % 55.2 % (47-70); Platelet Count 272 K/mm3 (150-450); RBC Distribution Width CV 13.2 % (11.6-14.6); RBC Distribution Width SD 45.7 fl (35.1-43.9); Red Blood Count 4.55 M/mm3 (4.2-5.4); White Blood Count 10.3 K/mm3 (4.4-11.0)
[2024-03-06 21:49] LABS: Anion Gap 11 (5-15); BUN 18 mg/dL (7-18); Calcium,Total 10.5 mg/dL (8.5-10.1); Chloride 110 mmol/L (98-107); Creatinine, Serum 1.06 mg/dL (0.55-1.02); EST Glomerular Filtration Rate 54 mL/min (>60); Est Glom Filt Rate - Afr Amer 65 mL/min (>60); Estimated Creatinine Clearance 47.81 ml/min; Glucose 129 mg/dL (74-106); Potassium 4.2 mmol/L (3.5-5.1); Sodium Level 141 mmol/L (136-145); Troponin-I HS (w/2H Reflex) 3 pg/mL (3.0-54.0)
[2024-03-06 22:02] VITALS: BP 108/70; PULSE 105; RESP 20; O2SAT 96
--- NOTE | 2024-03-06 22:08 | EKG12_ITS ---
Test Reason : REPEAT Blood Pressure : / mmHG Vent. Rate : 111 BPM Atrial Rate : 111 BPM P-R Int : 162 ms QRS Dur : 062 ms QT Int : 312 ms P-R-T Axes : 058 019 054 degrees QTc Int : 424 ms Sinus tachycardia with Premature atrial complexes with Aberrant conduction Otherwise normal ECG Confirmed by KEANU DIETRICH, EDGARDO ([id number]), film editor VIJAY MARQUEZ ([id number]) on 03/09/2024 8:15:33 AM Referred By: KADE Confirmed By:EDGARDO COLUNGA MD
[2024-03-06 22:48] VITALS: BP 139/92; PULSE 103; RESP 22; TEMP 35.8; O2SAT 97
[2024-03-06 23:25] LABS: Reflex Troponin-HS? (from REC) Y
== END 2024-03-06 22:53 | disposition home or self-care (01) ==
PROVIDERS: Emergency Provider Emergency Medicine; PCP Preventive Medicine Occupational Medicine; Visit Provider Emergency Medicine
DX: R07.9 Chest pain, unspecified (principal); I48.0 Paroxysmal atrial fibrillation; E11.9 Type 2 diabetes mellitus without complications; I10 Essential (primary) hypertension; E78.00 Pure hypercholesterolemia, unspecified; Z79.01 Long term (current) use of anticoagulants; G47.33 Obstructive sleep apnea (adult) (pediatric); Z99.89 Dependence on other enabling machines and devices; Z79.82 Long term (current) use of aspirin; Z79.899 Other long term (current) drug therapy; E03.9 Hypothyroidism, unspecified; Z79.84 Long term (current) use of oral hypoglycemic drugs; K21.9 Gastro-esophageal reflux disease without esophagitis; Z90.710 Acquired absence of both cervix and uterus; Z90.49 Acquired absence of other specified parts of digestive tract
CPT/HCPCS: 71045; 80048; 84484; 85025; 93005; 99284; A4216; J0153

== ENCOUNTER → 2024-03-19 | Outpatient (CLI) | payer MEDICARE, OTHER, SELFPAY ==
[2024-03-19 16:08] LABS: ALB/GLOB Ratio 1.2 RATIO (0.9-2.4); AST(SGOT) 15 U/L (15-37); Alanine Aminotransfer ALT/SGPT 20 U/L (13-56); Albumin, Serum 3.7 g/dL (3.2-5.0); Alkaline Phosphatase 74 U/L (45-117); Anion Gap 7 (5-15); BUN 11 mg/dL (7-18); BUN/Creat Ratio 13.3 RATIO (10-20); Calcium,Total 9.8 mg/dL (8.5-10.1); Chloride 106 mmol/L (98-107); Creatinine, Serum 0.83 mg/dL (0.55-1.02); EST Glomerular Filtration Rate 71 mL/min (>60); Est Glom Filt Rate - Afr Amer 86 mL/min (>60); Globulin 3.2 g/dL (2.2-4.2); Glucose 95 mg/dL (74-106); Potassium 4.3 mmol/L (3.5-5.1); Protein, Total 6.9 g/dL (6.4-8.2); Sodium Level 140 mmol/L (136-145)
== END | disposition home or self-care (01) ==
LOC: MTLAB 11:38
PROVIDERS: PCP Preventive Medicine Occupational Medicine; Referring Provider Urology; Visit Provider Urology
DX: R31.0 Gross hematuria (principal)
CPT/HCPCS: 36415; 80053

== ENCOUNTER → 2024-04-08 | Outpatient (CLI) | payer MEDICARE, OTHER, SELFPAY ==
--- NOTE | 2024-04-08 07:05 | ECHOD_ITS ---
Reason For Study: AFIB Procedure This was a 2D Doppler, Color Flow transthoracic echocardiogram. Exam performed in department. Left Ventricle Normal LV size. Left ventricular systolic function is normal. The left ventricular ejection fraction is 65 %. No regional wall motion abnormalities noted. Right Ventricle Normal RV size. Normal systolic function. Atria Normal left atrium. Normal right atrium. Mitral Valve Normal mitral valve. Tricuspid Valve Normal tricuspid valve. Aortic Valve Trisinus/trileaflet aortic valve. Mild (1+) aortic valve insufficiency. Pulmonic Valve Normal pulmonic valve. Great Vessels Normal aortic root. The pulmonary artery is normal size. Inferior vena cava collapse with respiration. Pericardium/Pleural No pericardial effusion. MMode/2D Measurements & Calculations RVDd: 2.2 cm LVOT diam: 2.0 cm LAV(MOD-bp): 30.5 ml LVOT area: 3.2 cm2 LAV(MOD-bp) Indexed: 16.5 ml/m2 LAV(MOD-sp2): 29.7 ml LAV(MOD-sp4): 32.1 ml SV(MOD-sp4): 41.5 ml SV(sp4-el): 44.5 ml LVAd ap4: 23.8 cm2 LVLd ap4: 8.0 cm EDV(MOD-sp4): 57.1 ml EDV(sp4-el): 59.6 ml LVAs ap4: 10.3 cm2 LVLs ap4: 6.0 cm ESV(MOD-sp4): 15.6 ml ESV(sp4-el): 15.0 ml EF(MOD-sp4): 72.6 % EF(sp4-el): 74.8 % LA A4 area: 14.2 cm2 LA dimension(2D): 3.0 cm RA A4 area: 10.7 cm2 TAPSE: 2.1 cm Time Measurements MV dec time: 0.22 sec Doppler Measurements & Calculations MV E max jose: 83.6 cm/sec Lat Peak E' Jose: 9.3 cm/sec Med Peak E' Jose: 6.5 cm/sec MV A max jose: 116.8 cm/sec E/E' lat: 9.0 E/E' med: 12.9 MV E/A: 0.72 MV V2 max: 128.3 cm/sec Ao V2 max: 189.6 cm/sec MV max P.6 mmHg MV dec slope: 383.4 cm/sec2 Ao max P.4 mmHg MV V2 mean: 74.0 cm/sec Ao V2 mean: 129.4 cm/sec MV mean P.5 mmHg Ao mean P.7 mmHg MV V2 VTI: 35.7 cm Ao V2 VTI: 47.9 cm AV (velocity ratio): 0.76 MVA(VTI): 3.3 cm2 TREV(I,D): 2.4 cm2 TREV(V,D): 2.3 cm2 AI max jose: 421.9 cm/sec LV V1 max: 136.2 cm/sec SV(LVOT): 117.2 ml AI max P.2 mmHg LV V1 max P.4 mmHg LV V1 mean P.5 mmHg AI dec slope: 352.3 cm/sec2 LV V1 mean: 100.2 cm/sec AI P1/2t: 350.7 msec LV V1 VTI: 36.6 cm ECHO/Echo Complete Interpretation Summary Normal LV size. Left ventricular systolic function is normal. The left ventricular ejection fraction is 65 %. Mild (1+) aortic valve insufficiency. Ordering Physician: Rocio Reina Referring Physician: Rocio Reina Performed By: Latrice Kingston and Student
--- NOTE | 2024-04-08 16:56 | STRESSREP ---
Stress Test Report Pharmacologic myocardial perfusion stress test. 73-year-old lady with a history of chest pain and supraventricular tachycardia Resting EKG demonstrates sinus rhythm with a rate of 73 bpm. Resting blood pressure is 116/66 mmHg. 0.4 mg of regadenoson was infused per usual protocol followed by rapid intravenous saline flush injection. Continuous EKG monitoring was performed. The maximum heart rate was 90 bpm which was 62% of max impacted heart rate the maximum workload was 1 metabolic equivalent. At rest there were no ST or T wave changes noted to suggest ischemia and at peak infusion nonspecific ST changes were noted which did not meet the criteria for ischemia. No clinical angina is noted. The final blood pressure was 118/62 mmHg. Myocardial perfusion protocol. 11.6 mCi of technetium 99m sestamibi was injected at rest. 0.4 mg of regadenoson was infused per usual protocol. At peak infusion 34.7 mCi of technetium 99m sestamibi was injected stress images were obtained stress and rest images were reconstructed and compared in the short axis vertical long and horizontal long axis. Gated images were also obtained. Perfusion SPECT analysis: Review of the stress images demonstrate normal uptake of tracer noted in all areas of the myocardium. The resting images similar demonstrated normal uptake of tracer noted in all areas of the myocardium. No areas of reversibility are noted to suggest ischemia and no previous infarct is noted. Gated SPECT analysis: The gated ejection fraction is 83%. Conclusion: Normal pharmacologic myocardial perfusion stress test. Preserved ejection fraction.
== END | disposition home or self-care (01) ==
LOC: CVS 07:03
PROVIDERS: PCP Preventive Medicine Occupational Medicine; Referring Provider Nurse Practitioner Gerontology; Visit Provider Nurse Practitioner Gerontology
DX: R07.89 Other chest pain (principal); I48.0 Paroxysmal atrial fibrillation; I47.10 Supraventricular tachycardia, unspecified
CPT/HCPCS: 78452; 93017; 93306; A9500; A4216; J2785

== ENCOUNTER 2024-04-22 06:03 | Day surgery (SDC) | payer MEDICARE, OTHER, SELFPAY ==
[2024-04-22] VITALS (9 sets, daily range): BP systolic 119–154; BP diastolic 63–80; PULSE 74–83; RESP 15–16; TEMP 36.2–37.1; O2SAT 95–99; BMI 29.0
--- NOTE | 2024-04-22 | CYSPIN_PTH ---
PATIENT: SHY MOORE LOC: [facility] U#:[id number] AGE/SX: 73/F ROOM: RE04/22/[address]: Dr. Pearl Levy MD : [id number] BED: DIS: 04/22/2024 SPEC #: [id number] RECD: 04/22/24 08:01 STATUS: SANDRA BRAULIO #: [id number] LEIGH ANN: 04/22/24 00:[address]: Pearl Levy DEPT: CYTOLOGY RECD BY: Agustin Xiao ENTERED: 04/22/24 09:17 SP TYPE: CYSPIN FL OTHR DR: Dr. Everardo Silva, Tissues: A - Urine B - Urine Procedures: Pap Stain (control) Special Stain Group II Cytospin Fluid HEADER OPERATION: Cystoscopy, bilateral selective cytology, ureteroscopy PRE-OP DIAGNOSIS: Gross hematuria, abnormal urine cytology TISSUE SUBMITTED: Urine for cytology DIAGNOSIS CYTOLOGY A. Left kidney urine (cytospin): Atypical urothelial cells present, Brittany Category System III. See comment. B. Right kidney urine (cytospin): Negative for high grade urothelial carcinoma, Brittany Category System II. See comment. AM. 04/22/2024 COMMENT A. The Brittany System for urine cytology diagnostic categorization was used in the evaluation of this case. Clinical correlation is necessary. B. The Brittany System for urine cytology diagnostic categorization was used in the evaluation of this case. The specimen is virtually acellular. Clinical correlation is suggested. Case has been reviewed in consultation with Dr. Benton who concurs with the above diagnosis. IDC:[id number] CYTOLOGY STUDY Slides are reviewed. CYTOLOGY GROSS A. Received is 2 ml of hazy-light red fluid labeled with the patient's name and and designated per the requisition as Left kidney urine. Submitted for cytology preparation. B. Received is 1.0 ml of hazy-colorless fluid labeled with the patient's name and and designated per the requisition as Right kidney urine. Submitted for cytology preparation. 04/22/2024 TC:? CPT: 72044y9
[2024-04-22] MEDS: Lactated Ringers 1,000 ML 15 ML IV (06:39)
[2024-04-22 07:02] LABS: Bedside Glucose 108 mg/dL (74-106)
--- NOTE | 2024-04-22 07:26 | PRE.ANES_ITS ---
ASA Classification* ASA Classification ASA Classification: 2 Assessment & Plan Anesthesia* Anesthesia Assessment Anesthesia Assessment: Discussed sedation and/or anesthesia options, risks, benefits, and alternatives with patient/parents/legal guardian/POA. Questions invited. The patient/parents/legal guardian/POA seems to understand and agrees to proceed with anesthesia plan. Reviewed the physical assessment, medical history, allergy history and patient home medications list prior to surgery/procedure/anesthetic and documented any changes. Performed airway and anesthesia risk assessments. Anesthesia Type Anesthesia Type: General (see written pre anesthesia record for full assessment) Anesthesia Focused Assessment* Temperature: 97.1 F Pulse Rate: 83 Blood Pressure: 119/63 Respiratory Rate: 16 Pulse Ox: 96 Airway Assessment Mouth opens: >3 cm Mallampati Score: II Focused Labs Anesthesia Preop lab: CBC WBC 10.3 K/mm3 (4.4-11.0) 03/06/24 21:14 RBC 4.55 M/mm3 (4.2-5.4) 03/06/24 21:14 Hgb 14.1 g/dL (12.0-15.0) 03/06/24 21:14 Hct 43.2 % (37-47) 03/06/24 21:14 Plt Count 272 K/mm3 (150-450) 03/06/24 21:14 CHEMISTRY Potassium 4.3 mmol/L (3.5-5.1) 03/19/24 11:39 Sodium 140 mmol/L (136-145) 03/19/24 11:39 Magnesium 1.6 mg/dL (1.6-2.6) 02/28/22 20:30 BUN 11 mg/dL (7-18) 03/19/24 11:39 Creatinine 0.83 mg/dL (0.55-1.02) 03/19/24 11:39 Glucose 95 mg/dL (74-106) 03/19/24 11:39 POC Glucose 108 mg/dL (74-106) H 04/22/24 06:28 TSH 2.43 uIU/mL (0.358-3.74) 03/01/22 02:55 COAG PT 12.2 SECONDS (11.7-14.9) 10/05/20 18:25 Pre-Assessment Diagnosis/Proposed Procedure Planned Operative Procedure(s): (B) CYSTOSCOPY, BILATERAL SELECTIVE CYTOLOGY, URETEROSCOPY AND POSSIBLE URETERAL STENT INSERTIONS Anesthesia History 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 When Was Last Pacemaker Check QUESTION #4 FULL TEXT: You/Your Family Experience fever (hyperthermia) with Anesthesia Last Oral Intake Last Oral intake: Last Oral Intake NPO since 05:15 04/22/24 06:40 Meds taken in AM with sips of water? Meds patient instructed to see home med list 04/22/24 06:40 take am of surgery PONV PONV - wire weaver helper: PONV - wire weaver helper Female Yes 03/23/24 15:14 HX of Motion Sickness No 03/23/24 15:14 HX of N/V After Surgery No 03/23/24 15:14 Non-Smoker Yes 03/23/24 15:14 Duration of Surgery greater No 03/23/24 15:14 than 60 minutes Number of Risk Factors 2 03/23/24 15:14 PONV Score Moderate Risk 03/23/24 15:14 Height & Weight Height & Weight: Anesthesia: Height & Weight Height 5 ft 5 in 04/22/24 06:40 Weight: 79 kg 04/22/24 06:40 Body Mass Index (BMI) 29.0 04/22/24 06:40 Respiratory Assessment Respiratory Assessment - wire weaver helper: Respiratory Tract Infection Hx - wire weaver helper Hx Respiratory Tract Infection No 03/23/24 15:14 STOP Sleep Apnea STOP Sleep Apnea - wire weaver helper: STOP Sleep Apnea - wire weaver helper Hx Hypertension No 03/23/24 15:14 Hx Sleep Apnea Yes 03/23/24 15:14 CPAP No 03/23/24 15:14 BIPAP No 03/23/24 15:14 Do you snore loudly (louder than talking or can be heard Do you often feel tired/ fatigued/ sleepy during daytime? Has anyone observed you stop breathing during sleep? STOP Results Positive 03/23/24 15:14 QUESTION #5 FULL TEXT : Do you snore loudly (louder than talking or can be heard through closed doors)? Tobacco Use History Tobacco Use History - wire weaver helper: Tobacco Use History - wire weaver helper Tobacco Use Smoking Status Never smoker 03/23/24 15:14 Hx Tobacco Use No 03/23/24 15:14 Years Smoking Packs Smoked per Day Smoking Cessation Date was within the last 15 years Hx Smoking Cessation Date Hx Smoking Cessation Counseling Hematologic Medial History Hematologic Hx - wire weaver helper: Hematologic Medical Hx - inflatable buildings laminator Hx of Blood Transfusion No 03/23/24 15:14 Hx of Transfusion in last 3 No 03/23/24 15:14 Months Date of Last Transfusion (if within last 3 months) Ever experience any problems No 03/23/24 15:14 with transfusion(s)? Specify any problems Hx of Preganancy in last 3 N/A 03/23/24 15:14 Months Nurse Filling Out Transfusion NBUCHER 03/23/24 15:14 & Questions: Date: 03/23/24 03/23/24 15:14 Time: 15:15 03/23/24 15:14 Patient unable to answer at this time (ie. confused, unrespo /Reproduction History /Reproductive History - wire weaver helper: /Reproductive Hx- wire weaver helper Hx Now No 03/23/24 15:14 Gestational Age (in weeks): EDC: Hx Hx Para Hx Section SAB No 03/23/24 15:14 Active Medications Active Medications: Current Medications Generic Name Dose Route Start Last Admin Trade Name Freq PRN Reason Stop Dose Admin Cefazolin Sodium 2 gm/ N/A 20 mls @ 400 mls/hr 04/22/24 07:30 IV 04/22/24 07:32 PREOP ONE Lactated Ringer's 1,000 mls @ 15 mls/hr 04/22/24 06:15 04/22/24 06:39 IV 04/27/24 19:34 15 mls/hr .Q48H JUNIOR Administration Protocol PFSH Medical History Wears hearing aid Loss of hearing Wears glasses History of Holter monitoring Arthritis CPAP (continuous positive airway pressure) dependence Sleep apnea Non-smoker Low iron High cholesterol Easy bruising History of echocardiogram History of stress test Cardiology follow-up encounter History of atrial fibrillation PAF (paroxysmal atrial fibrillation) Fatigue Thyroid disease Osteoporosis Osteoarthritis Pneumonia Atrial fibrillation Gout HORACE on CPAP Premature atrial contraction Type 2 diabetes mellitus Hiatal hernia GERD (gastroesophageal reflux disease) Hypothyroidism Pure hypercholesterolemia SVT (supraventricular tachycardia) Essential hypertension Home Medications ?Medication ?Instructions ?Recorded ?Last Taken ?Type aspirin 81 mg tablet,delayed 81 mg PO DAILY 09/19/20 04/21/24 History release (Adult Low Dose Aspirin) atorvastatin 20 mg tablet 20 mg PO QHS 09/19/20 04/21/24 History exenatide microspheres 2 mg/0.85 2 mg subcut WE 09/19/20 04/15/24 History mL subcutaneous auto-injector ferrous sulfate 325 mg (65 mg 325 mg PO DAILY 09/19/20 04/21/24 History iron) tablet levothyroxine 50 mcg tablet 50 mcg PO DAILY 09/19/20 04/22/24 History multivitamin 1 tablet PO DAILY 09/19/20 04/21/24 History pioglitazone 15 mg tablet 15 mg PO DAILY 09/19/20 04/21/24 History calcium carbonate 500 mg PO DAILY 10/05/20 04/21/24 History ketoconazole 2 % topical cream 1 applic topical DAILY PRN Rash 01/17/21 Unknown History omeprazole 40 mg capsule,delayed 40 mg PO BID 11/14/21 04/22/24 History release sitagliptin phosphate 50 1 tab PO BID 09/03/22 04/21/24 History mg-metformin 1,000 mg tablet (Janumet) ascorbic acid (vitamin C) 250 mg 500 mg PO DAILY 05/02/23 04/21/24 History tablet biotin 5,000 mcg disintegrating 2,500 mcg PO DAILY 05/02/23 04/21/24 History tablet duloxetine 30 mg capsule,delayed 30 mg PO QHS #90 caps 11/11/23 04/21/24 Rx release carvedilol 12.5 mg tablet 12.5 mg PO BID #180 tabs 11/27/23 04/22/24 Rx apixaban 5 mg tablet (Eliquis) 5 mg PO BID #180 TABLETS 01/20/24 04/22/24 Rx Allergy/AdvReac Type Severity Reaction Status Date / Time prednisone Allergy Intermediate Hyperglycem Verified 04/22/24 06:15 ia benzonatate (From Tessalon AdvReac Severe dizziness Verified 04/22/24 06:15 Perles) codeine AdvReac Severe Anxiety/Ner Verified 04/22/24 06:15 vous hydroxyzine (From Vistaril) AdvReac Severe Hallucinati Verified 04/22/24 06:15 ons nitrofurantoin (From AdvReac Severe Diarrhea Verified 04/22/24 06:15 Macrodantin) diltiazem AdvReac Intermediate Dizzy and Verified 04/22/24 06:15 lightheaded metoprolol AdvReac Intermediate Severe Verified 04/22/24 06:15 hair loss raloxifene AdvReac Unknown Bowel Verified 04/22/24 06:15 issues hydrocodone (From Vicodin) AdvReac Anxiety/Ner Verified 04/22/24 06:15 vous Family History Mother Alzheimer disease Hypertension CVA (cerebral vascular accident) Arthritis Thyroid disorder Father Diabetes Parkinson disease Heart disease Brother CAD (coronary artery disease) Diabetes Heart disease Grandmother CVA (cerebral vascular accident) Grandfather CVA (cerebral vascular accident) Uncle CVA (cerebral vascular accident) Surgical History History of cardiac catheterization History of cataract removal with insertion of prosthetic lens History of left heart catheterization (LHC) (~10/13/20) History of open reduction and internal fixation (ORIF) procedure History of hysterectomy History of appendectomy History of laminectomy History of bunionectomy Social History household members: none Smoking Status: Never smoker second hand exposure: No alcohol intake: never substance use type: does not use caffeine: No what type of physical activity do you participate in: walking frequency: 3-4 times per week olive/christianity: Orthodoxy seatbelt use: always Review of Systems (Anesthesia) ROS Narrative System reviewed and no additional complaints, except as documented.
[2024-04-22] MEDS: Cefazolin 2 GM in Syringe IV (07:30)
--- NOTE | 2024-04-22 08:43 | DCINST_ITS ---
Discharge Instructions Diet Discharge Diet: No restrictions Activity Discharge Activity: Return to Normal Activity Dressing / Incision Call your doctor if you observe: Fever of 101 or Higher, Inability to urinate, Inability to have a bowel movement and - (Call if passing blood clots in the urine) Follow Up Care Please Follow Up With: Pearl Levy MD When: The office will call to make arrangements Test Results: Test results from this visit will be discussed in further detail at your follow- up appointment, if applicable. Discharge Plan Admission Attending Provider: Pearl Levy Primary Care Provider: Everardo Silva Instructions Print Language: Algerian Discharge Orders/Prescriptions Prescriptions: New oxycodone-acetaminophen [Percocet] 5-325 mg tablet 1 tab PO Q8H PRN (Reason: pain) 3 Days Qty: 10 0RF cephalexin 500 mg capsule 500 mg PO Q12 3 Days Qty: 6 0RF phenazopyridine [Pyridium] 200 mg tablet 200 mg PO TID PRN PRN (Reason: Bladder Spasms) 7 Days Qty: 30 3RF Continued calcium carbonate 500 mg calcium (1,250 mg) tablet,chewable 500 mg PO DAILY aspirin [Adult Low Dose Aspirin] 81 mg tablet,delayed release (DR/EC) 81 mg PO DAILY atorvastatin 20 mg tablet 20 mg PO QHS exenatide microspheres 2 mg/0.85 mL auto-injector 2 mg SC WE ferrous sulfate 325 mg (65 mg iron) tablet 325 mg PO DAILY levothyroxine 50 mcg tablet 50 mcg PO DAILY multivitamin Tablet 1 tablet PO DAILY pioglitazone 15 mg tablet 15 mg PO DAILY ketoconazole 2 % cream 1 applic TOPICAL DAILY PRN (Reason: Rash) ascorbic acid (vitamin C) 250 mg tablet 500 mg PO DAILY biotin 5,000 mcg tablet,disintegrating 2,500 mcg PO DAILY omeprazole 40 mg capsule,delayed release(DR/EC) 40 mg PO BID Janumet 50-1,000 mg tablet 1 tab PO BID duloxetine 30 mg capsule,delayed release(DR/EC) 30 mg PO QHS Qty: 90 3RF carvedilol 12.5 mg tablet 12.5 mg PO BID Qty: 180 3RF Rx Instructions: must administer with a meal/food Eliquis 5 mg tablet 5 mg PO BID Qty: 180 3RF Referrals / Follow Up: Everardo Silva DO [Primary Care Provider] - Disposition Disposition (needs filled in before D/C Order can be placed): Home, Self Care
--- NOTE | 2024-04-22 08:46 | PCM.POST.ANE ---
Anesthesia: Postop Eval I Current Vital Signs Temperature: 97.5 F Pulse Rate: 82 Blood Pressure: 138/77 Respiratory Rate: 16 Pulse Ox: 95 Oxygen Delivery Method: Room Air Assessment Airway patent: Yes Spontaneous unlabored respirations: Yes Mental status: Asleep nausea: No Vomiting: No Anesthesia Complication: No Fluid Hydration Crystalloid volume administer (ml): 900 Total IV fluid infused: 900 Progress Note Anesthesia document: Postop Eval 1 completed: Yes
--- NOTE | 2024-04-22 08:55 | PCM.OPRPT ---
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 Informed consent was obtained. She was taken the operating room and placed on the operating room table. Anesthesia monitored the head, neck, airway, IV access and vital signs throughout the case. Once anesthesia was appropriately administered, she was placed into dorsolithotomy position and was prepped and draped in usual sterile fashion. The cystoscope was inserted through the urethra under direct visualization into the urinary bladder revealing no abnormalities. The left cheek ureteral orifice was intubated with a Pollick catheter which advanced easily to 23 cm where it was irrigated with normal saline and sent for cytologic evaluation. A 0.035 Glidewire was then passed through the ureteral orifice seen on fluoroscopy. The flexible ureteroscope was placed over the Glidewire and advanced into the distal ureter and was unable to advance further secondary to ureteral narrowing. This process was repeated on the patient's right side. During placement of the Pollick catheter to the proximal collecting system, resistance was met and a few areas. I was unable to get any significant amount of fluid for cytologic evaluation, I sent a few cc. At this time the Glidewire was placed and the same resistance was met with the ureteroscope in the distal ureter. It appeared that the ureter was narrowed, I could not visualize a stone or mass. At this time the Pollick catheter was removed and an 8 Algerian cone-tip catheter was used to perform retrograde pyelograms bilaterally. On the patient's right side there were several areas of mild ureteral narrowing in the mid ureter with initial kinking in the distal ureter. At the area of the UPJ there was a significant narrowing and contrast was seen pooling in the renal pelvis and not draining appropriately. On the left side there were a few areas of narrowing without overt stricture of the ureter. There did not appear to be a UPJ obstruction. At this time a 0.035 Glidewire was utilized bilaterally for placement of a 6 Algerian 26 cm JJ stent on each side with good curling in each renal pelvis as well as the urinary bladder. Her bladder was then emptied and the case was terminated. She was awakened and taken to the recovery room in good condition. There were no complications. Grafts/Implants Used: 6 Algerian x 26 cm JJ stent x 2 Complications None Admit VTE Documentation VTE Present on Admission: Yes VTE Mechan Device Prophylaxis: SCD's VTE Pharm Prophylaxis ordered?: Yes
[2024-04-22 08:56] LABS: Cytology, Body Fluid / CSF SEE PATHOLOGY REPORT
--- NOTE | 2024-04-22 08:56 | POSTOPAN2_ITS ---
Anesthesia Postop Eval I Sum Postop Eval Completion status Anesthesia document: Postop Eval 1 completed: Yes Anesthesia Postop Eval I Summary Anesthesia Postop Eval I Summary: Anesthesia Postop Eval I: Assessment Summary Airway patent Yes 04/22/24 08:47 PRINCIPAL MECHANICAL ENGINEER.[email or web address] Spontaneous unlabored Yes 04/22/24 08:47 PRINCIPAL MECHANICAL ENGINEER.[email or web address] respirations Mental status Asleep 04/22/24 08:47 PRINCIPAL MECHANICAL ENGINEER.CLARA nausea No 04/22/24 08:47 PRINCIPAL MECHANICAL ENGINEER.CLARA Vomiting No 04/22/24 08:47 PRINCIPAL MECHANICAL ENGINEER.CLARA Anesthesia Postop Eval I: Fluid Summary Crystalloid volume administer 900 04/22/24 08:47 PRINCIPAL MECHANICAL ENGINEER.CLARA (ml) Colloids volume administered ( ml) Blood Product volume administered (ml) Total IV fluid infused 900 04/22/24 08:47 PRINCIPAL MECHANICAL ENGINEER.CLARA Anesthesia Postop Eval I: Summary Notes Anesthesia Complication No 04/22/24 08:47 SHERRILL Anesthesia Complication Comment: Post-operative progress note Anesthesia: Postop Eval II Evaluation Mental status: Awake Pain Level: 0 nausea: No Vomiting: No
--- NOTE | 2024-04-22 08:56 | PCM.POSTANE2 ---
Anesthesia Postop Eval I Sum Postop Eval Completion status Anesthesia document: Postop Eval 1 completed: Yes Anesthesia Postop Eval I Summary Anesthesia Postop Eval I Summary: Anesthesia Postop Eval I: Assessment Summary Airway patent Yes 04/22/24 08:47 IMMERSION METAL CLEANER.[email or web address] Spontaneous unlabored Yes 04/22/24 08:47 IMMERSION METAL CLEANER.[email or web address] respirations Mental status Asleep 04/22/24 08:47 IMMERSION METAL CLEANER.CLARA nausea No 04/22/24 08:47 IMMERSION METAL CLEANER.CLARA Vomiting No 04/22/24 08:47 IMMERSION METAL CLEANER.[email or web address] Anesthesia Postop Eval I: Fluid Summary Crystalloid volume administer 900 04/22/24 08:47 IMMERSION METAL CLEANER.CLARA (ml) Colloids volume administered ( ml) Blood Product volume administered (ml) Total IV fluid infused 900 04/22/24 08:47 IMMERSION METAL CLEANER.CLARA Anesthesia Postop Eval I: Summary Notes Anesthesia Complication No 04/22/24 08:47 SHERRILL Anesthesia Complication Comment: Post-operative progress note Anesthesia: Postop Eval II Evaluation Mental status: Awake Pain Level: 0 nausea: No Vomiting: No
== END 2024-04-22 10:58 | disposition home or self-care (01) ==
LOC: SDC 06:06 → AC 06:07
PROVIDERS: PCP Preventive Medicine Occupational Medicine; Referring Provider Urology; Visit Provider Urology
PROC: 0TJ98ZZ Inspection of Ureter, Via Natural or Artificial Opening Endoscopic (ICD-10-PCS; CPT 52352; principal; 2024-04-22 07:20)
DX: N13.5 Crossing vessel and stricture of ureter without hydronephrosis (principal); I48.91 Unspecified atrial fibrillation; E11.9 Type 2 diabetes mellitus without complications; R31.0 Gross hematuria; Z79.01 Long term (current) use of anticoagulants; I10 Essential (primary) hypertension; G47.33 Obstructive sleep apnea (adult) (pediatric); Z99.89 Dependence on other enabling machines and devices; E78.00 Pure hypercholesterolemia, unspecified; Z90.49 Acquired absence of other specified parts of digestive tract; Z90.710 Acquired absence of both cervix and uterus
CPT/HCPCS: 52351; 52332; 00918; 76000; 82962; 88108; 88313; J7120; A4216; C2617; J2405

== ENCOUNTER → 2024-04-28 | Outpatient (CLI) | payer MEDICARE, OTHER, SELFPAY ==
--- OUTSIDE RECORDS SUMMARY | 2024-04-28 19:53 | XMS RPT_ITS | CCD ---
Author Organization [facility] CliniSyoh Care Team Providers Care Chemical Etch Operator Name Role Phone SylviaMarco hill (Historical) Primary Care Provi chinyere Unavailable ANN-MARIE SILVA DO Primary Care Physician Terri CASAS, Cheryl Unavailable Unavailable Ann-Marie Silva Primary Care Provider Polo Evans Unavailable ANN-MARIE SILVA DO Primary Care Physician Ann-Marie Silva DO Primary Care Provider [phone] Ann-Marie Bell MD Unavailable Hiram Tan S Unavailable ANN-MARIE SILVA DO Attending Unavailable ANN-MARIE SILVA DO Primary Care Unavailable ANN-MARIE SILVA DO Attending Unavailable ANN-MARIE SILVA DO Primary Care Unavailable ANN-MARIE SILVA DO Attending Unavailable ANN-MARIE SILVA DO Primary Care Unavailable ANN-MARIE SILVA DO Attending Unavailable ANN-MARIE SILVA DO Primary Care Unavailable BUD OSWALD Attending ANN-MARIE Padilla DO Primary Care Unavailable Ann-Marie Silva DO Primary Care Provider [phone] Ann-Marie Bell MD Unavailable Man Gandhi MDril S Unavailable Pearl Levy MD Unavailable [phone] Sarath Alvarez MD Unavailable [phone] ANN-MARIE SILVA Primary Care Unavailable HIRAM, TAN S Referring Unavailable ANN-MARIE BELL Attending Unavailable Allergies Allergy Classification Reported Allergen(s) Allergy Type Date of Onset Reaction(s) Facility (16 sources) Codeine; Translations: [codeine] Drug Allergy 5 Intolerance, Mental Status Change [facility] (7 sources) traMADol; Translations: [TRAMADOL HCL] Drug Allergy 5 Intolerance [facility] (9 sources) Acetaminophen / HYDROcodone; Translations: [acetaminophen-hy drocodone] Drug Allergy ANXIETY/NERVOUS [facility] (10 sources) Alendronate; Translations: [alendronate] Drug Allergy 0 Nausea (finding) [facility] (14 sources) benzonatate; Translations: [benzonatate] Drug Allergy 2 Other: See Comments [facility] (14 sources) hydrOXYzine; Translations: [hydroxyzine] Drug Allergy 0 Intolerance, Mental Status Change [facility] (9 sources) NITROFURANTOIN, MACROCRYSTALS / Nitrofurantoin, Monohydrate; Translations: [nitrofurantoin] Drug Allergy DIARRHEA [facility] (9 sources) anabolic steroids; Translations: [anabolic steroids] Drug allergy INCREASED BLOOD SUGAR [facility] (11 sources) Raloxifene; Translations: [raloxifene] Drug Allergy 2 Incontinence of feces (finding), Other: See Comments [facility] [place] (4 sources) Alendronate Drug Allergy 0 Other: See Comments [facility] (5 sources) Nitrofurantoin; Translations: [NITROFURANTOIN] Drug Allergy 0 Intolerance, Diarrhea [facility] Work Phone: (5 sources) predniSONE; Translations: [PREDNISONE] Drug Allergy 0 Intolerance, Other: See Comments [facility] Work Phone: (3 sources) dilTIAZem; Translations: [DILTIAZEM] Drug Allergy 3 Other: See Comments [facility] Work Phone: (3 sources) Metoprolol; Translations: [METOPROLOL] Drug Allergy 3 Other: See Comments [facility] Work Phone: Medications Current Medications Medication Drug Class(es) Dates Sig (Normalized) Sig (Original) acetaminophen 500 mg oral tablet (3 sources) take 2 tablets by mouth every eight hours as needed acetaminophen (TYLENOL) 500 mg tablet Take 1,000 mg by mouth every 8 hours as needed for pain. Active Comment on above: Take 1,000 mg by dasha th every 8 hours as needed for pain. apixaban 5 mg oral tablet (8 sources) Factor Xa Inhibitor Start: 05-07-2022 take 1 tablet by mouth twice daily ELIQUIS 5 mg tab(s) Take 5 mg by mouth twice daily. 05/07/2022 Active Comment on above: Take 5 mg by mouth t wice daily. ascorbic acid 250 mg chewable tablet (7 sources) Vitamin C Start: 08-02-2019 Vitamin C 250 mg oral tablet, chewable Dose : 250 mg = 1 tab(s), Chewed, qDay, # 90 tab(s), 0 Refill(s) Start Date: 08/02/19 Status: Ordered take 1 tablet by mouth once santiago y ascorbic acid, vitamin C, (VITAMIN C) 250 mg tablet Take 250 mg by mouth once daily. Active Comment on above: Take 250 mg by mouth once daily. aspirin 81 mg delayed release oral tablet (13 sources) Platelet Aggregation Inhibitor, Nonsteroidal Anti-inflammatory Drug Start: 03-02-2019 aspirin 81 mg oral delayed release tablet Dose : 81 mg = 1 tab(s), Oral, qDay, # 30 tab(s), 0 Refill(s) Start Date: 03/02/19 Status: Ordered Start: 03-02-2019 aspirin 81 mg oral delayed release tablet Dose : 81 mg = 1 tab(s), Oral, qDay, # 30 tab(s), 0 Refill(s) Start Date: 03/02/19 Status: Ordered Comment on above: Take 81 mg by mouth once daily. atorvastatin 20 mg oral tablet (13 sources) HMG-CoA Reductase Inhibitor Start: 08-25-2023 End: 09-28-2024 atorvastatin 20 mg oral tablet Dose : 20 mg = 1 tab(s), Oral, qDay, # 100 tab(s), 3 Refill(s), Pharmacy: [facility], 166, cm, 07/09/23 15:31:00 EST, Height, kg, 07/09/23 15:31:00 EST, Dosing Weight Start Date: 08/25/23 Stop Date: 09/28/24 Status: Ordered Start: 10-03-2020 take 1 tablet by dasha once daily atorvastatin 20 mg oral tablet See Instructions, TAKE 1 TABLET DAILY, # 90 tab(s), 3 Refill(s), Pharmacy: [facility], 164, cm, 05/09/22 13:36:00 EDT, Height, kg, 05/09/22 13:36:00 EDT, Dosing Weight Start Date: 07/04/22 Status: Ordered Comment on above: Take 20 mg by mouth once daily. azelastine hydrochloride 0.206 mg/actuat metered dose nasal spray (2 sources) Histamine-1 Receptor Antagonist Start: 3 take 2 spray(s) nasal route twice daily ASTEPRO ALLERGY 205.5 mcg (0.15 %) spry place 2 sprays into each nostril twice a day 10/23/2022 Active Comment on above: place 2 sprays into each nostril twice a day baclofen 10 mg oral tablet (3 sources) gamma-Aminobutyric Acid-ergic Agonist Start: 1 baclofen 10 mg oral tablet Dose : 10 mg = 1 tab(s), Oral, TID, PRN muscle spasm, # 30 tab(s), 0 Refill(s), Pharmacy: [facility]/pharmacy #[id number], Spasm of muscle of lower back, 167, cm, 02/13/21 9:08:00 EDT, Height, kg, 02/13/21 9:08:00 EDT, Dosing Weight Start Date: 04/25/21 Status: Ordered biotin 5 mg oral capsule (9 sources) Start: 0 take 0.5 tablet by mouth once daily biotin 5000 mcg oral caps 0.5 tab, Oral, Daily, 0 Refill(s) Start Date: 05/09/20 Status: Ordered BIOTIN 5,000 MCG GUMMY (4 sources) take 2 tablets by mouth once daily BIOTIN 5,000 MCG GUMMY Take 2 tablets by mouth once daily. Active take 2 tablets by mouth once ron ly BIOTIN 5,000 MCG GUMMY Take 2 tablets by mouth once daily. 0 Active BIOTIN 5,000 MCG GUMMY Comment on above: Take 2 tablets by mo uth once daily. Calcium (9 sources) Phosphate Binder, Calcium Start: 04-19-2020 take 1 tablet by mouth once daily Calcium 500+D oral tablet, chewable tab(s), Chewed, Daily, 0 Refill(s) Start Date: 04/19/20 Status: Ordered calcium phos tribas/vitamin D2 (CHILDREN'S CALCIUM GUMMIES ORAL) (4 sources) take 1 tablet by mouth once daily calcium phos tribas/vitamin D2 (CHILDREN'S CALCIUM GUMMIES ORAL) Take 1 tablet by mouth once daily. Active take 1 tablet by mouth once santiago y calcium phos tribas/vitamin D2 (CHILDREN'S CALCIUM GUMMIES ORAL) Take 1 tablet by mouth once daily. 0 Active calcium phos tri bas/vitamin D2 (CHILDREN'S CALCIUM GUMMIES ORAL) Take by mouth. 0 Active Comment on above: Take by mouth. Take 1 tablet by dasha once daily. carvedilol 12.5 mg oral tablet (11 sources) alpha-Adrenergic Kiki, beta-Adrenergic Kiki Start: 10-21-2022 take 1 tablet by mouth twice daily at mealtime carvedilol (COREG) 12.5 mg tablet Take 12.5 mg by mouth twice daily with meals. 10/21/2022 Active Start: 02-01-2022 End: 05-08-2022 carvedilol (COREG) 6.25 mg t ablet Start: 02-13-2021 carvedilol 3.1 25 mg oral tablet Dose : 3.125 mg = 1 tab(s), Oral, BID, # 60 tab(s), 0 Refill(s) Start Date: 02/13/21 Status: Ordered Start: 02-13-2021 carvedilol 3.1 25 mg oral tablet Dose : 3.125 mg = 1 tab(s), Oral, BID, # 60 tab(s), 0 Refill(s) Start Date: 02/13/21 Status: Ordered Comment on above: Take 12.5 mg by mout h twice daily with meals. CoQ10 (5 sources) Start: 05-18-2015 take 1 dose by mouth once daily CoQ10 Dose : 300 mg =, Oral, qDay, 0 Refill(s) Start Date: 05/18/15 Status: Ordered cyanocobalamin, vitamin B-12, (VITAMIN B-12 INJECTION) (2 sources) cyanocobalamin, vitamin B-12, (VITAMIN B-12 INJECTION) Inject subcutaneously once every month. Active cyanocobalamin, vitamin B-12, (VITAMIN B-12 INJECTION) Inject subcutaneously once every month. 0 Active Comment on above: Inject subcutaneousl y once every month. diclofenac sodium 75 mg oral delayed release tablet (3 sources) Start: diclofenac sodium 75 mg oral delayed release tablet Dose : 75 mg = 1 tab(s), Oral, BID, # 60 tab(s), 0 Refill(s), Pharmacy: [facility]/pharmacy #[id number], DDD (degenerative disc disease), lumbar, 167, cm, 02/13/21 9:08:00 EDT, Height, kg, 02/13/21 9:08:00 EDT, Dosing Weight Start Date: 02/13/21 Status: Ordered DULoxetine 30 mg delayed release oral capsule (9 sources) Serotonin and Norepinephrine Reuptake Inhibitor Start: 3 take 1 capsule by mouth at bedtime DULoxetine 30 mg oral delayed release capsule take 1 capsule by mouth at bedtime Start Date: 11/28/22 Status: Ordered Start: 10-03-2022 End: 11-06-2022 take 1 capsule by mouth once daily at bedtime DULoxetine (CYMBALTA) 40 mg cpDR Take 1 capsule by mouth daily at bedtime. 0 10/03/2022 11/06/2022 Discontinued (Other) Start: 05-07-2022 End: 11-06-2022 take 1 capsule by mouth once daily DULoxetine (CYMBALTA) 60 mg capsule Take 60 mg by mouth once daily. 0 05/07/2022 11/06/2022 Discontinued (Other) Comment on above: Take 60 mg by mouth once daily. Take 30 mg by mouth daily at bedtime. Take 1 capsule by mo ut daily at bedtime. estradiol 0.1 mg/ml vaginal cream (2 sources) Estrogen Start: 03-04-2024 estradiol (ESTRACE) 0.01 % (0.1 mg/gram) vaginal cream estradiol 0.1 mg/g vaginal cream Dose = 1 appl, Vaginal, 2X/week, 0 Refill(s) Start Date: 03/04/24 Status: Ordered 03/04/2024 Active Start: 03-04-2024 estradiol 0.1 mg/g vaginal cream Dose = 1 appl, Vaginal, 2X/week, 0 Refill(s) Start Date: 03/04/24 Status: Ordered ferrous sulfate 325 mg oral tablet (13 sources) Start: 08-02-2019 IRON (ferrous sulfate 325 mg) 65 mg oral tablet Dose : 325 mg = 1 tab(s), Oral, qDay, Take with food., # 60 tab(s), 3 Refill(s) Start Date: 08/02/19 Status: Ordered Comment on above: Take 325 mg by mouth daily with breakfast. gabapentin 100 mg oral capsule (8 sources) Anti-epileptic Agent Start: 07-31-2022 take 2 capsules by mouth once daily in the morning, then take 3 capsules by mouth once daily in the evening gabapentin 100 mg oral capsule See Instructions, 2 caps p.o. every morning and 3 caps p.o. every evening, # 450 cap(s), 0 Refill(s), Pharmacy: [facility], Neuropathy, lower extremity, 164, cm, 05/09/22 13:36:00 EDT, Height, 81.9, kg, 05/09/22 13:36:00 EDT, Dosing... Start Date: 07/31/22 Status: Ordered Start: 08-07-2021 take 2 capsules by m outh once daily in the morning, then take 3 capsules by mouth once daily in the evening gabapentin 100 mg oral capsule See Instructions, 2 caps p.o. every morning and 3 caps p.o. every evening, # 450 cap(s), 1 Refill(s), [facility], Neuropathy, lower extremity, 167, cm, 08/07/21 13:31:00 EST, Height, 82.5, kg, 08/07/21 13:31:00 EST, Do... Start Date: 08/07/21 Status: Ordered Start: 10-03-2020 take 2 capsules by m outh once daily in the morning, then take 3 capsules by mouth once daily in the evening gabapentin 100 mg oral capsule See Instructions, 2 caps p.o. every morning and 3 caps p.o. every evening, # 450 cap(s), 1 Refill(s), Pharmacy: [facility], Neuropathy, lower extremity, 165, cm, 08/15/20 9:40:00 EST, Height, 82.1, kg, 08/15/20 9:40:00 EST, Dosi... Start Date: 10/03/20 Status: Ordered End: 11-06-2022 take 5 capsules by mouth once daily gabapentin (NEURONTIN) 100 mg capsule Take 500 mg by mouth once daily. 0 11/06/2022 Discontinued gabapentin (NEUR ONTIN) 100 mg capsule Take 100 mg by mouth. 0 Active Comment on above: Take 100 mg by mouth . Take 500 mg by mouth once daily. inulin 1500 mg chewable tablet (2 sources) Start: 03-04-2024 inulin 1.5 gram chew Take 1.5 g by mouth. 03/04/2024 Active Start: 03-04-2024 Fiber Choice 1 .5 g oral tablet, chewable Dose : 1.5 gram(s) = 1 tab(s), Chewed, BID, # 90 tab(s), 0 Refill(s) Start Date: 03/04/24 Status: Ordered ketoconazole 20 mg/ml topical cream (11 sources) Azole Antifungal Start: 09-04-2023 ketoconazole 2% topical cream Apply 1 sage, Topical, qDay, # 30 gram(s), 1 Refill(s), [facility]: [facility] #[id number], Cream, 163, cm, 09/04/23 8:58:00 EST, Height, 83, kg, 09/04/23 8:58:00 EST, Dosing Weight Start Date: 09/04/23 Status: Ordered Start: 07-02-2022 ketoconazole 2 % topical cream Apply 1 sage, Topical, qDay, # 30 gram(s), 1 Refill(s), Pharmacy: [facility]/pharmacy #[id number], Cream, 164, cm, 05/09/22 13:36:00 EDT, Height, 81.9, kg, 05/09/22 13:36:00 EDT, Dosing Weight Start Date: 07/02/22 Status: Ordered Start: 11-19-2021 ketoconazole 2 % topical cream Apply 1 sage, Topical, qDay, # 15 gram(s), 0 Refill(s), Pharmacy: [facility]/pharmacy #[id number], Cream, 167, cm, 08/07/21 13:31:00 EST, Height, 82.5 Start Date: 11/19/21 Status: Ordered Start: 06-22-2020 End: 06-21-2021 ketoconazole 2% topical crea m Apply 1 sage, Topical, qDay, # 30 gram(s), 0 Refill(s), Pharmacy: [facility]/pharmacy #[id number], Cream, 167.6, cm, 06/20/20 9:24:00 EST, Height, 80, kg, 06/20/20 9:24:00 EST, Dosing Weight Start Date: 06/22/20 Stop Date: 06/21/21 Status: Ordered ketoconazole (NI ZORAL) 2 % cream Apply to affected area as needed. daily Active Comment on above: Apply to affected ar ea as needed. daily levothyroxine sodium 0.05 mg oral tablet (14 sources) l-Thyroxine Start: 07-24-2023 levothyroxine 50 mcg (0.05 mg) oral tablet Dose : 50 mcg = 1 tab(s), Oral, qDay, # 90 tab(s), 3 Refill(s), Pharmacy: [facility], 166, cm, 07/09/23 15:31:00 EST, Height, kg, 07/09/23 15:31:00 EST, Dosing Weight Start Date: 07/24/23 Status: Ordered Start: 07-04-2022 levothyroxine 50 mcg (0.05 mg) oral tablet Dose : 50 mcg = 1 tab(s), Oral, qDay, # 90 tab(s), 3 Refill(s), Pharmacy: [facility], 164, cm, 05/09/22 13:36:00 EDT, Height, kg, 05/09/22 13:36:00 EDT, Dosing Weight Start Date: 07/04/22 Status: Ordered Start: 03-21-2022 take 1 tablet by dasha th once daily levothyroxine (SYNTHROID) 50 mcg tablet Take 50 mcg by mouth once daily. 03/21/2022 Active Start: 08-07-2021 levothyroxine 50 mcg (0.05 mg) oral tablet Dose : 50 mcg = 1 tab(s), Oral, qDay, # 90 tab(s), 3 Refill(s), Pharmacy: [facility], 167, cm, 08/07/21 13:31:00 EST, Height, kg, 08/07/21 13:31:00 EST, Dosing Weight Start Date: 08/07/21 Status: Ordered Start: 10-03-2020 levothyroxine 50 mcg (0.05 mg) oral tablet Dose : 50 mcg = 1 tab(s), Oral, qDay, # 90 tab(s), 3 Refill(s), Pharmacy: [facility], 165, cm, 08/15/20 9:40:00 EST, Height, kg, 08/15/20 9:40:00 EST, Dosing Weight Start Date: 10/03/20 Status: Ordered End: 05-08-2022 take 1 capsule by mouth once daily before breakfast levothyroxine 50 mcg cap Take 50 mcg by mouth daily before breakfast. 0 05/08/2022 Discontinued (Dosage adjustment) Comment on above: Take 50 mcg by mouth daily before breakfast. Take 50 mcg by mouth once daily. lisinopril 2.5 mg oral tablet (8 sources) Angiotensin Converting Enzyme Inhibitor Start: take 1 tablet by mouth once daily lisinopril 2.5 mg oral tablet See Instructions, TAKE 1 TABLET DAILY, # 90 tab(s), 3 Refill(s), Pharmacy: [facility], 167, cm, 08/07/21 13:31:00 EST, Height, kg, 08/07/21 13:31:00 EST, Dosing Weight Start Date: 08/07/21 Status: Ordered Start: 10-03-2020 take 1 tablet by [facility] once daily lisinopril 2.5 mg oral tablet See Instructions, TAKE 1 TABLET DAILY, # 90 tab(s), 3 Refill(s), Pharmacy: [facility], 165, cm, 08/15/20 9:40:00 EST, Height, kg, 08/15/20 9:40:00 EST, Dosing Weight Start Date: 10/03/20 Status: Ordered Start: 05-15-2005 End: 05-08-2022 LISINOPRIL 5 MG TAB Take one (1) tablet daily. 0 05/15/2005 05/08/2022 Discontinued (Other) Comment on above: Take one(1) tablet d aily. loratadine 10 mg oral tablet (2 sources) Start: 03-04-2024 loratadine (CLARITIN) 10 mg tablet Take 10 mg by mouth. 03/04/2024 Active metFORMIN hydrochloride 1000 mg oral tablet (8 sources) Biguanide Start: 08-07-2021 metFORMIN 1000 mg oral tablet (IR) Dose : 1,000 mg = 1 tab(s), Oral, BID, # 180 tab(s), 3 Refill(s), Pharmacy: [facility], 167, cm, 08/07/21 13:31:00 EST, Height, kg, 08/07/21 13:31:00 EST, Dosing Weight Start Date: 08/07/21 Status: Ordered Start: 12-05-2020 metFORMIN 1000 mg oral tablet (IR) Dose : 1,000 mg = 1 tab(s), Oral, BID, # 180 tab(s), 3 Refill(s), Pharmacy: [facility], 165, cm, 08/15/20 9:40:00 EST, Height, kg, 08/15/20 9:40:00 EST, Dosing Weight Start Date: 12/05/20 Status: Ordered Start: 06-12-2005 End: 05-08-2022 GLUCOPHAGE XR 500 MG 24 HR T AB 2 every morning; one every afternoon 0 06/12/2005 05/08/2022 Discontinued (Other) Comment on above: 2 every morning; one every afternoon 24 hr metFORMIN hydrochloride 1000 mg / SITagliptin 50 mg extended release oral tablet (11 sources) Biguanide, Dipeptidyl Peptidase 4 Inhibitor Start: 09-04-2023 End: 10-08-2024 take 1 tablet by mouth once daily Janumet XR 50 / 1000 mg extended release oral tablet Dose = 2 tab(s), Oral, qDay, # 200 tab(s), 3 Refill(s), Pharmacy: [facility], 163, cm, 09/04/23 8:58:00 EST, Height, kg, 09/04/23 8:58:00 EST, Dosing Weight Start Date: 09/04/23 Stop Date: 10/08/24 Status: Ordered Start: 07-04-2022 End: 06-29-2023 take 1 tablet by mouth once daily Janumet XR 50 / 1000 mg extended release oral tablet Dose = 2 tab(s), Oral, qDay, # 14 tab(s), 0 Refill(s), Pharmacy: [facility] #[id number], 154, cm, 10/23/22 14:28:00 EDT, Height, kg, 10/23/22 14:28:00 EDT, Dosing Weight Start Date: 11/12/22 Stop Date: 11/19/22 Status: Ordered Start: 04-14-2022 take 1 tablet by dasha th twice daily JANUMET XR 50-1,000 mg TM24 Take 1 tablet by mouth twice daily. 04/14/2022 Active Start: 04-14-2022 JANUMET XR 50- 1,000 mg TM24 Start: 09-19-2020 End: 11-06-2022 SITagliptin-metFORMIN (JANUM ET) 50-1,000 mg per tablet Take by mouth. 0 09/19/2020 11/06/2022 Discontinued (Other) End: 05-08-2022 take 1 tablet by mouth twice daily at mealtime SITagliptin-metFORMIN (JANUMET) 50-1,000 mg per tablet Take 1 tablet by mouth twice daily with meals. 0 05/08/2022 Discontinued (Dosage adjustment) Comment on above: Take 1 tablet by dasha th twice daily with meals. Take 1 tablet by dasha th twice daily. Take by mouth. Multivitamin preparation (9 sources) Start: 08-02-2019 take 1 tablet by mouth once daily Multivitamin Dose = 1 tab(s), Oral, Daily, 0 Refill(s) Start Date: 08/02/19 Status: Ordered multivitamin tablet (4 sources) take 1 tablet by mouth once daily multivitamin tablet Take 1 tablet by mouth once daily. Active take 1 tablet by mouth once santiago y multivitamin tablet Take 1 tablet by mouth once daily. 0 Active Comment on above: Take 1 tablet by dasha th once daily. omeprazole 40 mg delayed release oral capsule (17 sources) Proton Pump Inhibitor Start: 07-24-2023 omeprazole 40 mg oral delayed release capsule Dose : 40 mg = 1 cap(s), Oral, BID, # 180 cap(s), 3 Refill(s), Pharmacy: [facility], 166, cm, 07/09/23 15:31:00 EST, Height, kg, 07/09/23 15:31:00 EST, Dosing Weight Start Date: 07/24/23 Status: Ordered Start: 07-04-2022 omeprazole 40 mg oral delayed release capsule Dose : 40 mg = 1 cap(s), Oral, BID, # 180 cap(s), 3 Refill(s), Pharmacy: [facility], 164, cm, 05/09/22 13:36:00 EDT, Height, kg, 05/09/22 13:36:00 EDT, Dosing Weight Start Date: 07/04/22 Status: Ordered Start: 10-03-2020 omeprazole 40 mg oral delayed release capsule Dose : 40 mg = 1 cap(s), Oral, BID, # 180 cap(s), 3 Refill(s), Pharmacy: [facility], 167, cm, 08/07/21 13:31:00 EST, Height, kg, 08/07/21 13:31:00 EST, Dosing Weight Start Date: 08/07/21 Status: Ordered Start: 05-14-2005 End: 05-08-2022 PRILOSEC 20 MG CAP Take one( 1) tablet daily. 0 05/14/2005 05/08/2022 Discontinued (Other) take 1 capsule by [facility] twice daily omeprazole (PRILOSEC) 40 mg capsule Take 40 mg by mouth twice daily. Active Comment on above: Take one(1) tablet d aily. Take 40 mg by mouth once daily. Take 40 mg by mouth twice daily. 24 hr oxybutynin chloride 10 mg extended release oral tablet (3 sources) Cholinergic Muscarinic Antagonist Start: 07-04-2022 End: 06-29-2023 take 1 tablet by mouth every hour, then take 1 tablet by mouth once daily oxybutynin 10 mg/24 hr oral tablet, extended release Dose : 10 mg = 1 tab(s), Oral, qDay, # 90 tab(s), 3 Refill(s), Pharmacy: [facility], 164, cm, 05/09/22 13:36:00 EDT, Height, kg, 05/09/22 13:36:00 EDT, Dosing Weight Start Date: 07/04/22 Stop Date: 06/29/23 Status: Ordered End: 11-06-2022 oxybutynin ER (DITROPAN XL) 10 mg 24 hr tablet Take 10 mg by mouth. Every 4 days 0 11/06/2022 Discontinued (Other) Comment on above: Take 10 mg by mouth. Every 4 days pioglitazone 15 mg oral tablet (14 sources) Peroxisome Proliferator Receptor alpha Agonist, Peroxisome Proliferator Receptor gamma Agonist, Thiazolidinedione Start: 03-21-2022 pioglitazone 15 mg oral tablet Dose : 15 mg = 1 tab(s), Oral, qDay, # 90 tab(s), 3 Refill(s), Pharmacy: [facility], 166, cm, 07/09/23 15:31:00 EST, Height, kg, 07/09/23 15:31:00 EST, Dosing Weight Start Date: 07/24/23 Status: Ordered Start: 08-07-2021 pioglitazone 1 5 mg oral tablet Dose : 15 mg = 1 tab(s), Oral, qDay, # 90 tab(s), 3 Refill(s), Pharmacy: [facility], 167, cm, 08/07/21 13:31:00 EST, Height, kg, 08/07/21 13:31:00 EST, Dosing Weight Start Date: 08/07/21 Status: Ordered Start: 07-12-2020 pioglitazone 1 5 mg oral tablet Dose : 15 mg = 1 tab(s), Oral, qDay, # 90 tab(s), 3 Refill(s), Pharmacy: [facility], 167.6, cm, 07/06/20 10:48:00 EST, Height, kg, 07/06/20 10:48:00 EST, Dosing Weight Start Date: 07/12/20 Status: Ordered End: 05-08-2022 pioglitazone HCl (PIOGLITAZO NE ORAL) Take by mouth. 0 05/08/2022 Discontinued (Other) pioglitazone HCl (PIOGLITAZONE ORAL) Take by mouth. 0 Active Comment on above: Take by mouth. Take 15 mg by mouth once daily. raloxifene hydrochloride 60 mg oral tablet (3 sources) Estrogen Agonist/Antagonist Start: 12-27-19 Evista 60 mg oral tablet Dose : 60 mg = 1 tab(s), Oral, qDay, # 90 tab(s), 3 Refill(s), Pharmacy: [facility], Osteoporosis, 165, cm, 08/15/20 9:40:00 EST, Height, kg, 08/15/20 9:40:00 EST, Dosing Weight Start Date: 12/26/20 Status: Ordered sulfamethoxazole 800 mg / trimethoprim 160 mg oral tablet (1 source) Dihydrofolate Reductase Inhibitor Antibacterial, Sulfonamide Antimicrobial Start: 09-04-19 End: 09-14-19 take 1 tablet by mouth every twelve hours sulfamethoxazole-t rimethoprim 800 mg-160 mg oral tablet Dose = 1 tab(s), Oral, q12h, X 10 day(s), # 20 tab(s), 0 Refill(s), [facility]: [facility] #[id number], 163, cm, 09/04/23 8:58:00 EST, Height, 83, kg, 09/04/23 8:58:00 EST, Dosing Weight Start Date: 09/04/23 Stop Date: 09/14/23 Status: Ordered ubidecarenone 200 mg oral capsule (6 sources) Start: 11-29-19 take 1 capsule by mouth once daily ubiquinone 200 mg oral capsule Dose : 200 mg =, Oral, qDay, 0 Refill(s) Start Date: 11/28/22 Status: Ordered take 10 capsules by mouth once d aily Coenzyme Q10 200 mg cap Take 200 mg by mouth once daily. Active Comment on above: Take by mouth once d aily. Take 200 mg by mouth once daily. Vitamin C 250 mg oral tablet, chewable (6 sources) Start: 08-02-2019 Vitamin C 250 mg oral tablet, chewable Dose : 250 mg = 1 tab(s), Chewed, qDay, # 90 tab(s), 0 Refill(s) Start Date: 08/02/19 Status: Ordered Completed/Discontinued Medications Medication Drug Class(es) Dates Sig (Normalized) Sig (Original) alendronic acid 70 mg oral tablet (4 sources) Bisphosphonate Start: 09-02-2005 End: 05-08-2022 FOSAMAX 70 MG TAB one tablet once a week 0 09/02/2005 05/08/2022 Discontinued (Other) Comment on above: one tablet once a we ek b 12 injection (4 sources) Start: 10-23-2022 b 12 injection b 12 injection, 0 Refill(s), 81.9 Start Date: 10/23/22 Status: Ordered 24 hr dilTIAZem hydrochloride 120 mg extended release oral capsule (1 source) Calcium Channel Kiki Start: 09-17-2022 End: 11-06-2022 take 1 capsule by mouth once daily, then take 1 capsule by mouth every twenty-four hours CARTIA XT 120 mg 24 hr capsule Take 120 mg by mouth once daily. 0 09/17/2022 11/06/2022 Discontinued (Other) Comment on above: Take 120 mg by mouth once daily. 0.85 ml exenatide 2.35 mg/ml auto-injector (14 sources) GLP-1 Receptor Agonist Start: 07-31-2022 inject 0.85 mL by subcutaneous injection every week Bydureon BCise 2 mg/0.85 mL subcutaneous suspension, extended release Dose : 2 mg = 0.85 mL, Subcutaneous, qWeek, # 11.05 mL, 3 Refill(s), Pharmacy: [facility], 164, cm, 05/09/22 13:36:00 EDT, Height, kg, 05/09/22 13:36:00 EDT, Dosing Weight Start Date: 08/06/22 Status: Ordered Start: 08-07-2021 inject 0.85 mL by erickson bcutaneous injection every week Bydureon BCise 2 mg/0.85 mL subcutaneous suspension, extended release Dose : 2 mg = 0.85 mL, Subcutaneous, qWeek, # 11.05 mL, 3 Refill(s), Pharmacy: [facility], 167, cm, 08/07/21 13:31:00 EST, Height, kg, 08/07/21 13:31:00 EST, Dosing Weight Start Date: 08/07/21 Status: Ordered Start: 06-26-2021 inject 0.85 mL by erickson bcutaneous injection every week Bydureon BCise 2 mg/0.85 mL subcutaneous suspension, extended release Dose : 2 mg = 0.85 mL, Subcutaneous, qWeek, # 11.05 mL, 3 Refill(s), Pharmacy: [facility], 167, cm, 02/13/21 9:08:00 EDT, Height, kg, 02/13/21 9:08:00 EDT, Dosing Weight Start Date: 06/26/21 Status: Ordered Start: 07-12-2020 inject 0.85 mL by erickson bcutaneous injection every week Bydureon BCise 2 mg/0.85 mL subcutaneous suspension, extended release Dose : 2 mg = 0.85 mL, Subcutaneous, qWeek, # 11.05 mL, 3 Refill(s), Pharmacy: [facility], 167.6, cm, 07/06/20 10:48:00 EST, Height, kg, 07/06/20 10:48:00 EST, Dosing Weight Start Date: 07/12/20 Status: Ordered Start: 07-12-2020 End: 11-06-2022 exenatide (BYDUREON BCISE) 2 mg / 0.85 ml subcutaneous auto injector Inject 0.85 mL subcutaneously. 0 07/12/2020 11/06/2022 Discontinued (Other) inject 2 mg by subcu taneous injection every week exenatide (BYDUREON) 2 mg / 0.65 ml subcutaneous pen injector Inject 2 mg subcutaneously one time a week. Active Comment on above: Inject 2 mg subcutan eously one time a week. Inject 0.85 mL subcu taneously. metoprolol tartrate 50 mg oral tablet (6 sources) beta-Adrenergic Kiki Start: 2 End: 3 take 1 tablet by mouth twice daily metoprolol tartrate, short acting, (LOPRESSOR) 50 mg tablet Take 50 mg by mouth twice daily. 0 04/15/2022 11/06/2022 Discontinued (Other) Start: 06-20-2020 End: 05-08-2022 metoprolol succinate ER (TOP ROL XL) 25 mg 24 hr tablet 25 mg. 0 06/20/2020 05/08/2022 Discontinued (Other) End: 05-08-2022 METOPROLOL TARTRATE ORAL Russ e by mouth. 0 05/08/2022 Discontinued (Other) METOPROLOL TARTR ATE ORAL Take by mouth. 0 Active Comment on above: Take by mouth. Take 50 mg by mouth twice daily. 25 mg. Pediatric Multivit Comb#19-FA (CHILDREN'S MULTI-VIT GUMMIES) 200 mcg chew (2 sources) End: 05-08-2022 Pediatric Multivit Comb#19-FA (CHILDREN'S MULTI-VIT GUMMIES) 200 mcg chew Take by mouth. 0 05/08/2022 Discontinued (Other) Pediatric Multiv it Comb#19-FA (CHILDREN'S MULTI-VIT GUMMIES) 200 mcg chew Take by mouth. 0 Active Comment on above: Take by mouth. rosiglitazone 8 mg oral tablet (4 sources) Peroxisome Proliferator Receptor gamma Agonist, Thiazolidinedione Start: 05-15-2005 End: 05-08-2022 AVANDIA 8 MG TAB Take one(1) tablet daily. 0 05/15/2005 05/08/2022 Discontinued (Other) Comment on above: Take one(1) tablet d aily. rosuvastatin calcium 20 mg oral tablet (4 sources) HMG-CoA Reductase Inhibitor Start: 05-15-2005 End: 05-08-2022 CRESTOR 20 MG TAB Take one(1) tablet daily. 0 05/15/2005 05/08/2022 Discontinued (Other) Comment on above: Take one(1) tablet d aily. ubidecarenone/vitamin E mixed (COQ10 SG 100 ORAL) (2 sources) End: 05-08-2022 ubidecarenone/vitamin E mixed (COQ10 SG 100 ORAL) Take by mouth. 0 05/08/2022 Discontinued (Other) ubidecarenone/vi tamin E mixed (COQ10 SG 100 ORAL) Take by mouth. 0 Active Comment on above: Take by mouth. Zinc (3 sources) End: 11-06-2022 take 1 tablet by mouth once daily Zinc 50 mg tab Take 50 mg by mouth once daily. 0 11/06/2022 Discontinued (Other) take 1 tablet by mouth once santiago y Zinc 50 mg tab Take 50 mg by mouth once daily. 0 Active Zinc 50 mg tab T dhruv by mouth. 0 Active Comment on above: Take by mouth. Take 50 mg by mouth once daily. Problems Active Problems Problem Classification Problem Date Documented Da te Episodic/Chronic Allergic reactions (2 sources) Chronic urticaria; Translations: [Other urticaria] Onset: 4 03-04-2024 Episodic Cardiac dysrhythmias (20 sources) Supraventricular tachycardia; Translations: [Supraventricular tachycardia] Onset: 2 04-17-2022 Chronic Diabetes mellitus without complication (14 sources) Diabetes mellitus; Translations: [Type 2 diabetes mellitus without complications] Onset: 0 01-29-2019 Chronic Disorders of lipid metabolism (17 sources) Dyslipidemia; Translations: [Hyperlipidemia, unspecified] Onset: 0 05-09-2020 Chronic Esophageal disorders (3 sources) Gastroesophageal reflux disease; Translations: [Gastro-esophageal reflux disease without esophagitis] Onset: 2 05-08-2022 Chronic Essential hypertension (13 sources) Hypertensive disorder; Translations: [Essential (primary) hypertension] Onset: 0 05-09-2020 Chronic Genitourinary symptoms and ill-defined conditions (4 sources) Dysuria-frequency syndrome; Translations: [Urinary symptoms ] 09-08-2023 Episodic Gout and other crystal arthropathies (9 sources) Gout; Translations: [Gout, unspecified] Onset: 2 08-07-2021 Chronic Menopausal disorders (10 sources) Menopausal syndrome; Translations: [Menopausal and female climacteric states] Onset: 4 08-15-2020 Chronic Occlusion or stenosis of precerebral arteries (5 sources) Bilateral stenosis of carotid arteries; Translations: [Occlusion and stenosis of bilateral carotid arteries] Onset: 4 02-25-2023 Chronic Osteoporosis (12 sources) Osteoporosis; Translations: [Age-related osteoporosis without current pathological fracture] Onset: 2 11-24-2020 Chronic Other aftercare (6 sources) Long-term current use of anticoagulant; 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] Onset: 2 Episodic Other aftercare (1 source) Long-term current use of drug therapy; Translations: [Other intermediate (current) drug therapy] Episodic Other circulatory disease (4 sources) H/O: atrial fibrillation 08-13-2022 Episodic Other diseases of bladder and urethra (7 sources) Overactive bladder; Translations: [Overactive bladder] Onset: 3 05-09-2022 Chronic Other gastrointestinal disorders (6 sources) Incontinence of feces 08-07-2021 Episodic Other nervous system disorders (8 sources) Neuropathy; Translations: [Polyneuropathy, unspecified] Onset: 0 01-08-2016 Chronic Other nervous system disorders (5 sources) Neuropathy of lower limb 08-23-2020 Chronic Other non-traumatic joint disorders (4 sources) Joint pain in left hand 09-09-2022 Episodic Other screening for suspected conditions (not mental disorders or infectious disease) (9 sources) Mammography abnormal 08-15-2020 Episodic Other skin disorders (5 sources) Inflammatory dermatosis; Translations: [Disorder of the skin and subcutaneous tissue, unspecified] Onset: 4 10-23-2022 Episodic Other upper respiratory disease (4 sources) Allergic rhinitis 10-23-2022 Chronic Residual codes; unclassified (5 sources) Obstructive sleep apnea syndrome; Translations: [Obstructive sleep apnea (adult) (pediatric)] Onset: 2 Chronic Residual codes; unclassified (1 source) Obstructive sleep apnea (adult) (pediatric); Translations: [Obstructive sleep apnea syndrome] Onset: 2 Chronic Spondylosis; intervertebral disc disorders; other back problems (12 sources) Degeneration of lumbar intervertebral disc; Translations: [Other intervertebral disc degeneration, lumbar region] Onset: 2 02-13-2021 Chronic Spondylosis; intervertebral disc disorders; other back problems (10 sources) Radiculopathy due to lumbar intervertebral disc disorder; Translations: [Lumbago with sciatica] Onset: 4 02-13-2021 Episodic Thyroid disorders (13 sources) Hypothyroidism; Translations: [Hypothyroidism, unspecified] Onset: 0 01-25-2020 Chronic Unclassified (9 sources) Patient encounter status 05-09-2021 Urinary tract infections (2 sources) Urinary tract infection, site not specified; Translations: [Urinary tract infection, site not specified] Onset: 4 Episodic Past or Other Problems Problem Classification Problem Date Documented Da te Episodic/Chronic Cardiac dysrhythmias (6 sources) Palpitations; Translations: [Palpitations] Onset: 05-08-2022 05-08-2022 Episodic Malaise and fatigue (2 sources) Fatigue; Translations: [Other fatigue] Onset: 10-09-2022 11-06-2022 Episodic Nonmalignant breast conditions (13 sources) Cyst of breast; Translations: [Breast lump] Onset: 06-14-2020 10-31-2020 Episodic Nonspecific chest pain (4 sources) Chest pain on exertion; Translations: [Chest pain, unspecified] Onset: 06-14-2020 06-14-2020 Episodic Nutritional deficiencies (2 sources) Cobalamin deficiency; Translations: [Deficiency of other specified B group vitamins] Onset: 10-09-2022 11-06-2022 Episodic Other aftercare (1 source) 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; Translations: [Anticoagulant long-term use] Onset: 05-09-2022 Episodic Residual codes; unclassified (7 sources) Other specified personal risk factors, not elsewhere classified; Translations: [Other specified personal history presenting hazards to health] Onset: 05-07-2022 Episodic Results Test Name Value Interpretation Reference Range Facility [facility] 03-30-2024 CNOV Office Visit (AGCARDPOB) SHY MARTIN ([id number]) 1950 F Date Time Provider Department 03/30/24 9:20 AM ANN-MARIE BELL AGCARDPOB During your visit today, we recorded the following information about you: Pulse Blood pressure Weight Height 91/minute 108/70 79.4 kg 1.676 m Ann-Marie Bell MD 04/01/2024 9:55 PM Signed PRIMARY CARE PHYSICIAN: Ann-Marie Silva [address] [phone] Patient Care Team: Ann-Marie Silva DO as PCP - General (Family Medicine) Ann-Marie Bell MD as Specialty [facility] (Cardiology) Tan Gandhi MD as Specialty [facility] (Cardiology) Pearl Levy MD as Specialty [facility] (Urology) Sarath Alvarez MD as Specialty [facility] (Neurology) CHIEF COMPLAINT: Follow up for arrhythmia HISTORY OF PRESENT ILLNESS: Ms. Martin is a 73 year old female who presents today for a cardiovascular medicine follow-up visit. History copied from previous notes, edited as needed: Summary of previous notes: Ms. Martin was diagnosed with atrial fibrillation in about 02/2022. She experienced tightness in the chest, rapid heartbeats, palpitations --- she had experienced such symptoms for perhaps a couple months prior (even a year prior?) although she also has been found to have SVT. In February 2022 when she was found to have atrial fibrillation with rapid ventricular response rates she was treated initially with IV metoprolol and IV amiodarone, spontaneously converted to sinus rhythm. She was discharged on PO metoprolol, initially 100 mg twice daily but then decreased to 50 mg twice daily due to side effects (fatigue, low BP). At some point she was treated with Eliquis oral anticoagulation for stroke prevention. Symptoms have been under reasonable control with beta-kiki therapy, so it is reasonable to continue with this treatment strategy for now. 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 Class III agents sotalol or dofetilide could be considered, and amiodarone would be less desirable if other options exist. Catheter ablation is also a consideration for the atrial fibrillation but also for the SVT --- if the latter were to be inducible. We reviewed her experience with various medications: she had hair loss that was attributed to metoprolol, improved after stopping it. She had dizziness or lightheadedness with diltiazem, improved after stopping it. She has been doing well with carvedilol however. Interim History Dr. Bell 03/30/2024: Ms. Martin presents for follow up evaluation for arrhythmia, with history of SVT and paroxysmal atrial fibrillation. She reports no issues with bleeding on the Eliquis, just some easy bruising of arms and legs. She had atrial fibrillation in January 2024, underwent electrical cardioversion in [facility] ED. She had episode of SVT in February 2024, was in [place] ED. The arrhythmia spontaneously terminated. She has another episode of arrhythmia, she thinks SVT, occurred in March (03/23/2024) a couple days prior to planned outpatient cystoscopy. She was evaluated by Rocio Reina in Dr. Gandhi's office recently on 03/24/2024, she was advised to defer the cystoscopy. The cystoscopy is considered to evaluate abnormal cells in the bladder. A cardiac stress test and echocardiogram were ordered. She has chest tightness and palpitations with the arrhythmias. No changes were made to her medication regimen. She did not tolerate metoprolol due to hair loss (alopecia). She does tolerate carvedilol however. She states she has never been on diltiazem (but medical records indicate that she was in the past, and did not tolerate it due to lightheadedness). I have confirmed and edited as necessary, the PFSH and ROS obtained by others. PAST MEDICAL HISTORY Diagnosis Date Anticoagulant long-term use Arthritis At risk for stroke [id number] = 3 (age, DM, female gender) Adams's esophagus Disorder of bone and cartilage, unspecified Disorder of thyroid Essential hypertension GERD (gastroesophageal reflux disease) Hiatal hernia Hypothyroidism Obesity, unspecified Obesity Other diseases of pharynx, not elsewhere classified(478.29) Other extrapyramidal disease and abnormal movement disorder PAC (premature atrial contraction) Paroxysmal atrial fibrillation (HCC) Pure hypercholesterolemia SVT (supraventricular tachycardia) (HCC) Type II or unspecified type diabetes mellitus without mention of complication, not stated as uncontrolled PAST SURGICAL HISTORY Procedure Laterality Date APPENDECTOMY BACK SURGERY H (more content not included)... Normal [facility] ECG B/O W INTERP (MED OFFICE )on 03-30-2024 Interpretation and review of laboratory results Normal [facility] Sinus rhythm 83 bpm; normal conduction intervals (MD 158 ms, QRS 54 ms); QTc 408 ms [facility] LABORATORYOrdered By: SYSTEM SYSTEM on 03-04-2024 Albumin BCP dye [Mass/Vol] 4.0 G/dL Normal 3.4 - 4.8 G/dL AO ADM SS Albumin/Globulin [Mass ratio] 1.4 {ratio} Normal 1.1 - 2.5 ratio AO ADM SS ALP [Catalytic activity/Vol] 68 U/L Normal 40 - 135 U/L AO ADM SS ALT With P-5'-P [Catalytic activity/Vol] 23 U/L Normal 14 - 59 U/L AO ADM SS AST With P-5'-P [Catalytic activity/Vol] 18 U/L Normal 10 - 40 U/L AO ADM SS Basophil, Absolute 0.0 103/mcL Normal 0.0 - 0.2 10^3/mcL AO Workflow SS Basophils/100 WBC (Bld) 0.6 % Normal 0.0 - 2.5 % AO Workflow SS Bilirubin [Mass/Vol] 0.4 mg/dL Normal 0.2 - 1 .0 mg/dL AO ADM SS Comment on above: Interpretive Data: U se of this assay is not recommended for patients undergoing treatment with eltrombopag due to the potential for falsely elevated results. Calcium [Mass/Vol] 9.6 mg/dL Normal 8.4 - 10. 2 mg/dL AO ADM SS Chloride [Moles/Vol] 102 mmol/L Normal 98 - 10 7 mmol/L AO ADM SS CO2 [Moles/Vol] 30 mmol/L Normal 23 - 31 mmol/L AO ADM SS Creatinine [Mass/Vol] 0.98 mg/dL Normal 0.55 - 1.02 mg/dL AO ADM SS Comment on above: Interpretive Data: T esting performed on Siemens Dimension EXL analyzer using a modified kinetic Rufus technique. CRP [Mass/Vol] 0.1 mg/dL Normal 0.0 - 0.3 mg/dL AO ADM SS Electrolyte Balance 6.0 mEq/L Normal 4.0 - 15 .0 mEq/L AO ADM SS Eosinophil, Absolute 0.1 103/mcL Normal 0.0 - 0 .4 10^3/mcL AO Workflow SS Eosinophils/100 WBC (Bld) 1.7 % Normal 0.0 - 7.0 % AO Workflow SS Erythrocyte distribution width (RBC) [Ratio] 13.7 % Normal 11.5 - 14.5 % AO Workflow SS GFR/1.73 sq M.predicted among blacks MDRD (S/P/Bld) [Vol rate/Area] 67 ml/min/1.73sqm Invalid Interpretation Code AO Chemistry S Comment on above: Interpretive Data: GFR Population mean for , Non- Americans Ages 20-29 = 116 mL/min/1.73 sq.m. Ages 30-39 = 107 mL/min/1.73 sq.m. Ages 40-49 = 99 mL/min/1.73 sq.m. Ages 50-59 = 93 mL/min/1.73 sq.m. Ages 60-69 = 85 mL/min/1.73 sq.m. Ages 70+ = 75 mL/min/1.73 sq.m. Chronic Kidney Disease: Less than 60 mL/min/1.73 square meters End Stage Renal Disease: Less than 15 mL/min/1.73 square meters GFR/1.73 sq M.predicted among non-blacks MDRD (S/P/Bld) [Vol rate/Area] 55 ml/min/1.73sqm Invalid Interpretation Code AO Chemistry S Comment on above: Interpretive Data: GFR Population mean for , Non- Americans Ages 20-29 = 116 mL/min/1.73 sq.m. Ages 30-39 = 107 mL/min/1.73 sq.m. Ages 40-49 = 99 mL/min/1.73 sq.m. Ages 50-59 = 93 mL/min/1.73 sq.m. Ages 60-69 = 85 mL/min/1.73 sq.m. Ages 70+ = 75 mL/min/1.73 sq.m. Chronic Kidney Disease: Less than 60 mL/min/1.73 square meters End Stage Renal Disease: Less than 15 mL/min/1.73 square meters Globulin 2.8 G/dL Invalid Interpretation Code AO ADM SS Glucose [Mass/Vol] 103 mg/dL Normal 83 - 110 mg/dL AO ADM SS Hematocrit (Bld) [Volume fraction] 39.7 % Normal 37.0 - 47.0 % AO Workflow SS Hemoglobin (Bld) [Mass/Vol] 13.4 G/dL Normal 12.0 - 16.0 G/dL AO Workflow SS Lymphocyte, Absolute 1.6 103/mcL Normal 0.8 - 3 .9 10^3/mcL AO Workflow SS Lymphocytes/100 WBC (Bld) 20.4 % Normal 10.0 - 50.0 % AO Workflow SS MCH (RBC) [Entitic mass] 32.5 pg High 27.0 - 31.2 pg AO Workflow SS MCHC 33.8 G/dL Normal 33.0 - 37.0 G/dL AO Workflow SS MCV (RBC) [Entitic vol] 96.1 fL High 80.0 - 94.0 fL AO Workflow SS Monocyte, Absolute 0.6 103/mcL Normal 0.2 - 1.0 10^3/mcL AO Workflow SS Monocytes/100 WBC (Bld) 8.2 % Normal 1.7 - 13.0 % AO Workflow SS Neutrophil, Absolute 5.4 103/mcL Normal 2.9 - 6 .2 10^3/mcL AO Workflow SS Neutrophils/100 WBC (Bld) 69.1 % Normal 37.0 - 80.0 % AO Workflow SS Platelet mean volume (Bld) [Entitic vol] 8.4 fL Normal 7.4 - 10.4 fL AO Workflow SS Platelets (Bld) [#/Vol] 231 103/mcL Normal 130 - 400 10^3/mcL AO Workflow SS Potassium [Moles/Vol] 4.5 mmol/L Normal 3.5 - 5.1 mmol/L AO ADM SS Protein [Mass/Vol] 6.8 G/dL Normal 6.4 - 8.2 G/dL AO ADM SS RBC (Bld) [#/Vol] 4.13 106/mcL Low 4.20 - 5.4 0 10^6/mcL AO Workflow SS Sodium [Moles/Vol] 138 mmol/L Normal 136 - 145 mmol/L AO ADM SS Urea nitrogen [Mass/Vol] 11 mg/dL Normal 7 - 18 mg/dL AO ADM SS Urea nitrogen/Creatinine [Mass ratio] 11 ratio Normal 7 - 27 ratio AO ADM SS WBC (Bld) [#/Vol] 7.8 103/mcL Normal 4.6 - 10.8 10^3/mcL AO Workflow SS LABORATORYOrdered By: Jose Sharp on 03-04-2024 ESR Photometric method (Bld) [Velocity] 8 mm/hr Normal 0 - 30 mm/hr AO Man Heme SS No Panel Informationon Culture Urine 50,000 - 100,000 cfu /ml Multiple bacterial morphotypes present. Probable Contamination. Suggest recollection if clinically indicated. [facility] .GFRon 08-30-2023 GFR Non- 59 ml/min/1.73sqm Normal [facility] ([place]) Comment on above: Result Comment: GFR Population mean for , Non- Americans Ages 20-29 = 116 mL/min/1.73 sq.m. Ages 30-39 = 107 mL/min/1.73 sq.m. Ages 40-49 = 99 mL/min/1.73 sq.m. Ages 50-59 = 93 mL/min/1.73 sq.m. Ages 60-69 = 85 mL/min/1.73 sq.m. Ages 70+ = 75 mL/min/1.73 sq.m. Chronic Kidney Disease: Less than 60 mL/min/1.73 square meters End Stage Renal Disease: Less than 15 mL/min/1.73 square meters Performed By: #### D IFF, TSH, GFR, A1C, CBC, MORPH, CMP, URIC, LIPID #### [id number] [place], [place] [address] GFR 71 ml/min/1.73sqm Normal [facility] ([place]) Comment on above: Result Comment: GFR Population mean for , Non- Americans Ages 20-29 = 116 mL/min/1.73 sq.m. Ages 30-39 = 107 mL/min/1.73 sq.m. Ages 40-49 = 99 mL/min/1.73 sq.m. Ages 50-59 = 93 mL/min/1.73 sq.m. Ages 60-69 = 85 mL/min/1.73 sq.m. Ages 70+ = 75 mL/min/1.73 sq.m. Chronic Kidney Disease: Less than 60 mL/min/1.73 square meters End Stage Renal Disease: Less than 15 mL/min/1.73 square meters Performed By: #### D IFF, TSH, GFR, A1C, CBC, MORPH, CMP, URIC, LIPID #### [id number] [place], [place] [address] .Manual Diffon 08-30-2023 Bands 2.0 % Normal 0.0-5.0 [facility] ([place]) Comment on above: Performed By: #### D IFF, TSH, GFR, A1C, CBC, MORPH, CMP, URIC, LIPID ####[id number] [place], [place] [address] Basophil %, Manual 0.0 % Normal 0.0-2.5 [facility] ([place]) Comment on above: Performed By: #### D IFF, TSH, GFR, A1C, CBC, MORPH, CMP, URIC, LIPID ####[address] [place], [place] [address] Basophil, Abs Manual 0.0 10 3/mcL Normal 0.0-0.2 [facility] ([place]) Comment on above: Performed By: #### D IFF, TSH, GFR, A1C, CBC, MORPH, CMP, URIC, LIPID ####[address] [place], [place] [address] Eosinophil %, Manual 1.0 % Normal 0.0-7.0 [facility] ([place]) Comment on above: Performed By: #### D IFF, TSH, GFR, A1C, CBC, MORPH, CMP, URIC, LIPID ####[address] [place], [place] [address] Eosinophil, Abs Manual 0.1 10 3/mcL Normal 0.0-0.4 [facility] ([place]) Comment on above: Performed By: #### D IFF, TSH, GFR, A1C, CBC, MORPH, CMP, URIC, LIPID ####[address] [place], [place] [address] Lymphocyte %, Manual 25.0 % Normal 10.0-50.0 [facility] ([place]) Comment on above: Performed By: #### D IFF, TSH, GFR, A1C, CBC, MORPH, CMP, URIC, LIPID ####[address] [place], [place] [address] Lymphocyte, Abs Manual 1.8 10 3/mcL Normal 0.8-3.9 [facility] ([place]) Comment on above: Performed By: #### D IFF, TSH, GFR, A1C, CBC, MORPH, CMP, URIC, LIPID ####[address] [place], [place] [address] Metamyelocyte 1.0 % Normal [facility] ([place]) Comment on above: Performed By: #### D IFF, TSH, GFR, A1C, CBC, MORPH, CMP, URIC, LIPID ####[address] [place], [place] [address] Monocyte %, Manual 10.0 % Normal 1.7-13.0 [facility] ([place]) Comment on above: Performed By: #### D IFF, TSH, GFR, A1C, CBC, MORPH, CMP, URIC, LIPID ####[id number] [place], [place] [address] Monocyte, Abs Manual 0.7 10 3/mcL Normal 0.2-1.0 [facility] ([place]) Comment on above: Performed By: #### D IFF, TSH, GFR, A1C, CBC, MORPH, CMP, URIC, LIPID ####[address] [place], [place] [address] Myelocyte 2.0 % Normal [facility] ([place]) Comment on above: Performed By: #### D IFF, TSH, GFR, A1C, CBC, MORPH, CMP, URIC, LIPID ####[id number] [place], [place] [address] Neutrophil %, Manual 59.0 % Normal 37.0-80.0 [facility] ([place]) Comment on above: Performed By: #### D IFF, TSH, GFR, A1C, CBC, MORPH, CMP, URIC, LIPID ####[id number] [place], [place] [address] Neutrophil, Abs Manual 4.2 10 3/mcL Normal 2.9-6.2 [facility] ([place]) Comment on above: Performed By: #### D IFF, TSH, GFR, A1C, CBC, MORPH, CMP, URIC, LIPID ####[id number] [place], [place] [address] Nucleated RBC 0.0 /100 WBC Normal [facility] ([place]) Comment on above: Performed By: #### D IFF, TSH, GFR, A1C, CBC, MORPH, CMP, URIC, LIPID ####[address] [place], [place] [address] .Morphon 08-30-2023 Platelet Estimate Normal Normal [facility] ([place]) Comment on above: Performed By: #### D IFF, TSH, GFR, A1C, CBC, MORPH, CMP, URIC, LIPID ####[address] [place], [place] [address] A1Con 08-30-2023 HbA1c (Bld) [Mass fraction] 6.2 % Normal 4.3-6.4 [facility] ([place]) Comment on above: Performed By: #### D IFF, TSH, GFR, A1C, CBC, MORPH, CMP, URIC, LIPID ####[address] [place], [place] [address] CBCon 08-30-2023 Erythrocyte distribution width (RBC) [Ratio] 13.5 % Normal 11.5-14.5 [facility] ([place]) Comment on above: Performed By: #### D IFF, TSH, GFR, A1C, CBC, MORPH, CMP, URIC, LIPID ####[address] [place], [place] [address] Hematocrit (Bld) [Volume fraction] 38.9 % Normal 37.0-47.0 [facility] ([place]) Comment on above: Performed By: #### D IFF, TSH, GFR, A1C, CBC, MORPH, CMP, URIC, LIPID ####[address] [place], [place] [address] Hgb 13.1 G/dL Normal 12.0-16.0 [facility] ([place] Comment on above: Performed By: #### D IFF, TSH, GFR, A1C, CBC, MORPH, CMP, URIC, LIPID ####[address] [place], [place] [address] MCH (RBC) [Entitic mass] 31.4 pg High 27.0-31.2 [facility] ([place]) Comment on above: Performed By: #### D IFF, TSH, GFR, A1C, CBC, MORPH, CMP, URIC, LIPID ####[address] [place], [place] [address] MCHC 33.6 G/dL Normal 33.0-37.0 [facility] ([place] Comment on above: Performed By: #### D IFF, TSH, GFR, A1C, CBC, MORPH, CMP, URIC, LIPID ####[address] [place], [place] [address] MCV (RBC) [Entitic vol] 93.6 fL Normal 80.0-94.0 [facility] ([place] Comment on above: Performed By: #### D IFF, TSH, GFR, A1C, CBC, MORPH, CMP, URIC, LIPID ####[address] [place], [place] [address] Platelet 220 10 3/mcL Normal 130-400 [facility] ([place] Comment on above: Performed By: #### D IFF, TSH, GFR, A1C, CBC, MORPH, CMP, URIC, LIPID ####[address] [place], [place] [address] Platelet mean volume (Bld) [Entitic vol] 8.7 fL Normal 7.4-10.4 [facility] ([place] Comment on above: Performed By: #### D IFF, TSH, GFR, A1C, CBC, MORPH, CMP, URIC, LIPID ####[address] [place], [place] [address] RBC 4.16 10 6/mcL Low 4.20-5.40 [facility] ([place] Comment on above: Performed By: #### D IFF, TSH, GFR, A1C, CBC, MORPH, CMP, URIC, LIPID ####[address] [place], [place] [address] WBC 7.1 10 3/mcL Normal 4.6-10.8 [facility] ([place] Comment on above: Performed By: #### D IFF, TSH, GFR, A1C, CBC, MORPH, CMP, URIC, LIPID ####[address] [place], [place] [address] CMPon 08-30-2023 Albumin Level 3.6 G/dL Normal 3.4-4.8 [facility] ([place] Comment on above: Performed By: #### D IFF, TSH, GFR, A1C, CBC, MORPH, CMP, URIC, LIPID #### [address] [place], [place] [address] Albumin/Globulin [Mass ratio] 1.2 {ratio} Normal 1.1-2.5 [facility] ([place] Comment on above: Performed By: #### D IFF, TSH, GFR, A1C, CBC, MORPH, CMP, URIC, LIPID #### [address] [address] ALP [Catalytic activity/Vol] 77 U/L Normal 40-135 [facility] ([place] Comment on above: Performed By: #### D IFF, TSH, GFR, A1C, CBC, MORPH, CMP, URIC, LIPID #### [address] [address] ALT [Catalytic activity/Vol] 22 U/L Normal 14-59 [facility] ([place] Comment on above: Performed By: #### D IFF, TSH, GFR, A1C, CBC, MORPH, CMP, URIC, LIPID #### [address] [address] AST [Catalytic activity/Vol] 15 U/L Normal 10-40 [facility] ([place] Comment on above: Performed By: #### D IFF, TSH, GFR, A1C, CBC, MORPH, CMP, URIC, LIPID #### [address] [address] Bili Total 0.4 mg/dL Normal 0.2-1.0 [facility] ([place]) Comment on above: Result Comment: Use of this assay is not recommended for patients undergoing treatment with eltrombopag due to the potential for falsely elevated results. Performed By: #### D IFF, TSH, GFR, A1C, CBC, MORPH, CMP, URIC, LIPID #### [address] [address] BUN/Creatinine Ratio 11 ratio Normal 7-27 [facility] ([place]) Comment on above: Performed By: #### D IFF, TSH, GFR, A1C, CBC, MORPH, CMP, URIC, LIPID #### [address] [address] Calcium [Mass/Vol] 9.1 mg/dL Normal 8.4-10.2 [facility] ([place]) Comment on above: Performed By: #### D IFF, TSH, GFR, A1C, CBC, MORPH, CMP, URIC, LIPID #### [address] [address] Chloride [Moles/Vol] 105 mmol/L Normal 98-107 [facility] ([place]) Comment on above: Performed By: #### D IFF, TSH, GFR, A1C, CBC, MORPH, CMP, URIC, LIPID #### [address] [address] CO2 [Moles/Vol] 29 mmol/L Normal 23-31 [facility] ([place] Comment on above: Performed By: #### D IFF, TSH, GFR, A1C, CBC, MORPH, CMP, URIC, LIPID #### [address] [address] Creatinine [Mass/Vol] 0.93 mg/dL Normal 0.55-1.02 [facility] ([place] Comment on above: Performed By: #### D IFF, TSH, GFR, A1C, CBC, MORPH, CMP, URIC, LIPID #### [address] [address] Electrolyte Balance 14.0 mEq/L Normal 4.0-15.0 [facility] ([place]) Comment on above: Performed By: #### D IFF, TSH, GFR, A1C, CBC, MORPH, CMP, URIC, LIPID #### [address] [address] Globulin 2.9 G/dL Normal [facility] ([place]) Comment on above: Performed By: #### D IFF, TSH, GFR, A1C, CBC, MORPH, CMP, URIC, LIPID #### [address] [address] Glucose [Mass/Vol] 101 mg/dL Normal 83-110 [facility] ([place]) Comment on above: Performed By: #### D IFF, TSH, GFR, A1C, CBC, MORPH, CMP, URIC, LIPID #### [address] [address] Potassium [Moles/Vol] 4.4 mmol/L Normal 3.5-5.1 [facility] ([place] Comment on above: Performed By: #### D IFF, TSH, GFR, A1C, CBC, MORPH, CMP, URIC, LIPID #### [address] [address] Sodium [Moles/Vol] 148 mmol/L High 136-145 [facility] ([place] Comment on above: Performed By: #### D IFF, TSH, GFR, A1C, CBC, MORPH, CMP, URIC, LIPID #### [address] [address] Total Protein 6.5 G/dL Normal 6.4-8.2 [facility] ([place] Comment on above: Performed By: #### D IFF, TSH, GFR, A1C, CBC, MORPH, CMP, URIC, LIPID #### [address] [address] Urea nitrogen [Mass/Vol] 10 mg/dL Normal 7-18 [facility] ([place] Comment on above: Performed By: #### D IFF, TSH, GFR, A1C, CBC, MORPH, CMP, URIC, LIPID #### [address] [address] LIPIDon 08-30-2023 Cholesterol [Mass/Vol] 179 mg/dL Normal 0-200 [facility] ([place]) Comment on above: Result Comment: Chol esterol Reference Interval: Less than 200 Desirable 200-239 Borderline high risk 240 and above High risk Performed By: #### D IFF, TSH, GFR, A1C, CBC, MORPH, CMP, URIC, LIPID #### [address] [address] Cholesterol in HDL [Mass/Vol] 74 mg/dL High 40-60 [facility] ([place] Comment on above: Performed By: #### D IFF, TSH, GFR, A1C, CBC, MORPH, CMP, URIC, LIPID #### [address] [address] Cholesterol in LDL [Mass/Vol] 77 mg/dL Normal 0-130 [facility] ([place] Comment on above: Performed By: #### D IFF, TSH, GFR, A1C, CBC, MORPH, CMP, URIC, LIPID #### [address] [address] Triglyceride [Mass/Vol] 141 mg/dL Normal 0-150 [facility] ([place]) Comment on above: Result Comment: Trig lyceride Reference Interval: Less than 150 Normal 150-199 Borderline high risk 200-499 High risk 500 or higher Very high risk Performed By: #### D IFF, TSH, GFR, A1C, CBC, MORPH, CMP, URIC, LIPID #### [address] [address] MALBRon 08-30-2023 U Creatinine 148.2 mg/dL High 28.0-117.0 [facility] ([place]) Comment on above: Performed By: #### M ALBR #### [address] [address] U Microalb 2336 mcg/dL Normal [facility] ([place]) Comment on above: Performed By: #### M ALBR #### [address] [address] U Ratio Alb/Cre 16 mcg/mg Normal 0-30 [facility] ([place]) Comment on above: Performed By: #### M ALBR #### [address] [address] TSHon 08-30-2023 TSH Qn 2.61 m[IU]/L Normal 0.36-3.74 [facility] ([place]) Comment on above: Performed By: #### D IFF, TSH, GFR, A1C, CBC, MORPH, CMP, URIC, LIPID #### [address] [address] URICon 08-30-2023 Uric Acid Lvl 5.5 mg/dL Normal 2.6-6.2 [facility] ([place] Comment on above: Performed By: #### D IFF, TSH, GFR, A1C, CBC, MORPH, CMP, URIC, LIPID #### [address] [address] MA MAMMOGRAM SCREENING IGNACIO Collado/Gale 07-02-2023 MA MAMMOGRAM SCREENING BILATERAL W/ZACK ORIGINAL FROM: [id number] [place], [place] [address] PROCEDURE FOR: SHY MARTIN [address] [place] [id number] Home: PID#: [id number] Exam#: [id number] : 1950 Age: 73 TO: ANN-MARIE SILVA DO [address] [facility] [address] [place], [place] [address] Fax: NO FAX EXAMINATION: SCREENING DIGITAL BILATERAL MAMMOGRAM WITH TOMOSYNTHESIS, 07/01/2023 1:58 pm TECHNIQUE: Screening mammography of the bilateral breasts was performed with tomosynthesis. 2D standard and 3D tomosynthesis combination imaging performed through both breasts in the MLO and CC projection. Computer aided detection was utilized in the interpretation of this exam. COMPARISON: 06/04/2022, 05/30/2021 HISTORY: Breast cancer screening. FINDINGS: BREAST DENSITY: Scattered fibroglandular tissue There are benign calcifications in both breasts. There are no significant masses or calcifications. IMPRESSION: No mammographic evidence of malignancy. Continued screening with annual mammograms is recommended. Breezy Lopezzick risk calculations, generated with the history provided, report this patient's 10 year risk and lifetime risk for developing breast cancer at 2.6% and 2.6%, respectively. Based on this assessment tool, if the patient's calculated lifetime risk is below 20%, then the patient is considered at average risk for developing breast cancer. If the patient's calculated lifetime risk is at or above 20%, then the patient is considered high risk for developing breast cancer and may be a candidate for supplemental breast MRI screening in addition to annual mammographic screening per the [employer]. BIRADS: MAMMOGRAM BI-RADS: 2: Benign finding RECALL: 1 year screening RECALL TYPE: mammo LETTER SENT: Normal BI-RADS 1 and 2 Interpreted by: Owen Morales MD Preliminary Report By: Owen Morales MD Electronically signed By Owen Morales MD Dictated Date: 07/01/2023 10:17:26 PM Prelim Date: 07/01/2023 10:25:21 PM Sign Date: 07/01/2023 10:25:21 PM Ordering Provider: ANN-MARIE SILVA copy to: LORENA ART MD, ph: [phone], fax: [phone] Special Investigator: ZANDRA Dickens)(M) letter sent: Normal BI-RADS 1 and 2 Mammogram BI-RADS: 2 Benign Normal [facility] ([place]) BD BONE DENSITY DEXA AXIAL S FAROOQETONfouzia 07-01-2023 BD BONE DENSITY DEXA AXIAL SKELETON ORIGINAL EXAMINATION: BONE GUEYVOFGULCQ92/26/2023 2:33 pm TECHNIQUE: Dual energy bone densitometry lumbar spine and left hip on a Hologic system. COMPARISON: 11/21/2020 HISTORY: ORDERING SYSTEM PROVIDED HISTORY: Reason for Exam: Osteoporosis Screening FINDINGS: Total bone mineral density of the L1-L4 is 1.001 grams per square centimeters, and T-score being -0.4, indicating that this patient has normal bone mineral density. BMD change: 3.3%, increased bone mineral density from prior 0.969. Bone mineral density of the left femoral neck is 0.647 grams per square centimeters, and T-score being -1.8, indicating that this patient has osteopenia. BMD change: Decrease in bone mineral density from prior of 0.732. Total bone mineral density of the left hip is 0.748 grams per square centimeters, and T-score being -1.6, indicating that this patient has osteopenia. BMD change: -3.7%, decrease in bone mineral density from prior of 0.776. FRAX score: Not reported, patient is treated for osteoporosis. IMPRESSION: Osteopenia. Decrease in bone mineral density of spine and hip. I have personally reviewed the images of this examination and agree with the resident's finding and interpretation. Interpreted by: Suzette Mina Preliminary Report By: Betty Taveras Electronically signed By Suzette Mina Dictated Date: 07/01/2023 2:41:50 PM Prelim Date: 07/01/2023 5:29:00 PM Sign Date: 07/01/2023 5:29:00 PM Ordering Provider: ANN-MARIE SILVA [facility] ([place]) .GFRon 02-19-2023 GFR 76 ml/min/1.73sqm Normal [facility] ([place]) Comment on above: Result Comment: GFR Population mean for , Non- Americans Ages 20-29 = 116 mL/min/1.73 sq.m. Ages 30-39 = 107 mL/min/1.73 sq.m. Ages 40-49 = 99 mL/min/1.73 sq.m. Ages 50-59 = 93 mL/min/1.73 sq.m. Ages 60-69 = 85 mL/min/1.73 sq.m. Ages 70+ = 75 mL/min/1.73 sq.m. Chronic Kidney Disease: Less than 60 mL/min/1.73 square meters End Stage Renal Disease: Less than 15 mL/min/1.73 square meters Performed By: #### L IPID, A1C, CMP, URIC, GFR, TSH ####[address] [place], [place] [address] GFR Non- 63 ml/min/1.73sqm Normal [facility] ([place]) Comment on above: Result Comment: GFR Population mean for , Non- Americans Ages 20-29 = 116 mL/min/1.73 sq.m. Ages 30-39 = 107 mL/min/1.73 sq.m. Ages 40-49 = 99 mL/min/1.73 sq.m. Ages 50-59 = 93 mL/min/1.73 sq.m. Ages 60-69 = 85 mL/min/1.73 sq.m. Ages 70+ = 75 mL/min/1.73 sq.m. Chronic Kidney Disease: Less than 60 mL/min/1.73 square meters End Stage Renal Disease: Less than 15 mL/min/1.73 square meters Performed By: #### L IPID, A1C, CMP, URIC, GFR, TSH ####[address] [place], [place] [address] A1Con 02-19-2023 HbA1c (Bld) [Mass fraction] 6.4 % Normal 4.3-6.4 [facility] ([place]) Comment on above: Performed By: #### L IPID, A1C, CMP, URIC, GFR, TSH ####[address] [place], [place] [address] CMPon 02-19-2023 Albumin Level 3.6 G/dL Normal 3.4-4.8 [facility] ([place] Comment on above: Performed By: #### L IPID, A1C, CMP, URIC, GFR, TSH ####[address] [place], [place] [address] Albumin/Globulin [Mass ratio] 1.2 {ratio} Normal 1.1-2.5 [facility] ([place] Comment on above: Performed By: #### L IPID, A1C, CMP, URIC, GFR, TSH ####[address] [place], [place] [address] ALP [Catalytic activity/Vol] 80 U/L Normal 40-135 [facility] ([place]) Comment on above: Performed By: #### L IPID, A1C, CMP, URIC, GFR, TSH ####[address] [place], [place] [address] ALT [Catalytic activity/Vol] 21 U/L Normal 14-59 [facility] ([place] Comment on above: Performed By: #### L IPID, A1C, CMP, URIC, GFR, TSH ####[address] [place], [place] [address] AST [Catalytic activity/Vol] 14 U/L Normal 10-40 [facility] ([place] Comment on above: Performed By: #### L IPID, A1C, CMP, URIC, GFR, TSH ####[address] [place], [place] [address] Bili Total 0.3 mg/dL Normal 0.2-1.0 [facility] ([place]) Comment on above: Result Comment: Use of this assay is not recommended for patients undergoing treatment with eltrombopag due to the potential for falsely elevated results. Performed By: #### L IPID, A1C, CMP, URIC, GFR, TSH ####[address] [place], [place] [address] BUN/Creatinine Ratio 18 ratio Normal 7-27 [facility] ([place]) Comment on above: Performed By: #### L IPID, A1C, CMP, URIC, GFR, TSH ####[address] [place], [place] [address] Calcium [Mass/Vol] 9.2 mg/dL Normal 8.4-10.2 [facility] ([place]) Comment on above: Performed By: #### L IPID, A1C, CMP, URIC, GFR, TSH ####[address] [place], [place] [address] Chloride [Moles/Vol] 103 mmol/L Normal 98-107 [facility] ([place]) Comment on above: Performed By: #### L IPID, A1C, CMP, URIC, GFR, TSH ####[address] [place], [place] [address] CO2 [Moles/Vol] 30 mmol/L Normal 23-31 [facility] ([place] Comment on above: Performed By: #### L IPID, A1C, CMP, URIC, GFR, TSH ####[address] [place], [place] [address] Creatinine [Mass/Vol] 0.88 mg/dL Normal 0.55-1.02 [facility] ([place] Comment on above: Performed By: #### L IPID, A1C, CMP, URIC, GFR, TSH ####[address] [place], [place] [address] Electrolyte Balance 9.0 mEq/L Normal 4.0-15.0 [facility] ([place]) Comment on above: Performed By: #### L IPID, A1C, CMP, URIC, GFR, TSH ####[address] [place], [place] [address] Globulin 2.9 G/dL Normal [facility] ([place] Comment on above: Performed By: #### L IPID, A1C, CMP, URIC, GFR, TSH ####[address] [place], [place] [address] Glucose [Mass/Vol] 98 mg/dL Normal 83-110 [facility] ([place] Comment on above: Performed By: #### L IPID, A1C, CMP, URIC, GFR, TSH ####[address] [place], [place] [address] Potassium [Moles/Vol] 4.6 mmol/L Normal 3.5-5.1 [facility] ([place] Comment on above: Performed By: #### L IPID, A1C, CMP, URIC, GFR, TSH ####[address] [place], [place] [address] Sodium [Moles/Vol] 142 mmol/L Normal 136-145 [facility] ([place] Comment on above: Performed By: #### L IPID, A1C, CMP, URIC, GFR, TSH ####[address] [place], [place] [address] Total Protein 6.5 G/dL Normal 6.4-8.2 [facility] ([place] Comment on above: Performed By: #### L IPID, A1C, CMP, URIC, GFR, TSH ####[address] [place], [place] [address] Urea nitrogen [Mass/Vol] 16 mg/dL Normal 7-18 [facility] ([place] Comment on above: Performed By: #### L IPID, A1C, CMP, URIC, GFR, TSH ####[address] [place], [place] [address] LIPIDon 02-19-2023 Cholesterol [Mass/Vol] 175 mg/dL Normal 0-200 [facility] ([place]) Comment on above: Result Comment: Chol esterol Reference Interval: Less than 200 Desirable 200-239 Borderline high risk 240 and above High risk Performed By: #### L IPID, A1C, CMP, URIC, GFR, TSH ####[address] [place], [place] [address] Cholesterol in HDL [Mass/Vol] 66 mg/dL High 40-60 [facility] ([place] Comment on above: Performed By: #### L IPID, A1C, CMP, URIC, GFR, TSH ####[address] [place], [place] [address] Cholesterol in LDL [Mass/Vol] 86 mg/dL Normal 0-130 [facility] ([place] Comment on above: Performed By: #### L IPID, A1C, CMP, URIC, GFR, TSH ####[address] [place], [place] [address] Triglyceride [Mass/Vol] 117 mg/dL Normal 0-150 [facility] ([place]) Comment on above: Result Comment: Trig lyceride Reference Interval: Less than 150 Normal 150-199 Borderline high risk 200-499 High risk 500 or higher Very high risk Performed By: #### L IPID, A1C, CMP, URIC, GFR, TSH ####[address] [place], [place] [address] MALBRon 02-19-2023 U Creatinine 134.2 mg/dL High 28.0-117.0 [facility] ([place] Comment on above: Performed By: #### M ALBR ####[address] [place], [place] [address] U Microalb 775 mcg/dL Normal [facility] ([place] Comment on above: Performed By: #### M ALBR ####[address] [place], [place] [address] U Ratio Alb/Cre 6 mcg/mg Normal 0-30 [facility] ([place] Comment on above: Performed By: #### M ALBR ####[address] [place], [place] [address] TSHon 02-19-2023 TSH Qn 1.97 m[IU]/L Normal 0.36-3.74 [facility] ([place]) Comment on above: Performed By: #### L IPID, A1C, CMP, URIC, GFR, TSH ####[address] [place], [place] [address] URICon 02-19-2023 Uric Acid Lvl 5.9 mg/dL Normal 2.6-6.2 [facility] ([place]) Comment on above: Performed By: #### L IPID, A1C, CMP, URIC, GFR, TSH ####[address] [place], [place] [address] XR STERNOCLAVICULAR JOINT(S) on 12-01-2022 XR STERNOCLAVICULAR JOINT(S) ORIGINAL EXAMINATION: THREE XRAY VIEWS OF THE STERNOCLAVICULAR JOINTS11/28/2022 12:06 pm STERNOCLAVICULAR JOINT XR frontal and both obliques three views COMPARISON: 01/27/2015 HISTORY: ORDERING SYSTEM PROVIDED HISTORY: Reason for Exam: Protrusion, feels like increasing in size, previous xray 2015, FINDINGS: No acute fracture, dislocation, lytic process or periosteal reaction is seen in the visualized bones and joints. No erosive type of arthritis. No periarticular soft tissue calcification. A skin marker indicates the site of the palpable abnormality in the region of the right medial clavicle head. No significant asymmetric appearance of the clavicle heads is seen. Limited evaluation of the sternoclavicular joints due to overlapping skeletal structures. IMPRESSION: No acute skeletal abnormality is seen.. No bony abnormality is seen to explain right-sided palpable lump. Only limited evaluation of the sternoclavicular joints due to overlapping structures. If there remains concern for nonvisualized pathology causing palpable lump, consider CT chest. Interpreted by: El Lantigua MD Preliminary Report By: El Lantigua MD Electronically signed By El Lantigua MD Dictated Date: 12/01/2022 3:33:16 PM Prelim Date: 12/01/2022 3:35:29 PM Sign Date: 12/01/2022 3:35:29 PM Ordering Provider: BUD Cota [facility] ([place]) LABORATORYOrdered By: SYSTEM SYSTEM on 08-05-2022 Albumin BCP dye [Mass/Vol] 3.8 G/dL Invalid Interpretation Code 3.4 - 4.8 G/dL AO ADM SS Albumin/Globulin [Mass ratio] 1.4 {ratio} Invalid Interpretation Code 1.1 - 2.5 ratio AO ADM SS ALP [Catalytic activity/Vol] 82 U/L Invalid Interpretation Code 40 - 135 U/L AO ADM SS ALT With P-5'-P [Catalytic activity/Vol] 20 U/L Invalid Interpretation Code 14 - 59 U/L AO ADM SS AST With P-5'-P [Catalytic activity/Vol] 18 U/L Invalid Interpretation Code 10 - 40 U/L AO ADM SS Bilirubin [Mass/Vol] 0.3 mg/dL Invalid Interpretation Code 0.2 - 1.0 mg/dL AO ADM SS Calcium [Mass/Vol] 9.1 mg/dL Invalid Interpretation Code 8.4 - 10.2 mg/dL AO ADM SS Chloride [Moles/Vol] 104 mmol/L Invalid Interpretation Code 98 - 107 mmol/L AO ADM SS CO2 [Moles/Vol] 30 mmol/L Invalid Interpretation Code 23 - 31 mmol/L AO ADM SS Creatinine [Mass/Vol] 0.82 mg/dL Invalid Interpretation Code 0.55 - 1.02 mg/dL AO ADM SS Electrolyte Balance 6.0 mEq/L Invalid Interpretation Code 4.0 - 15.0 mEq/L AO ADM SS GFR 83 ml/min/1.73sqm Invalid Interpretation Code AO Chemistry S GFR Non- 68 ml/min/1.73sqm Invalid Interpretation Code AO Chemistry S Globulin 2.8 G/dL Invalid Interpretation Code AO ADM SS Glucose [Mass/Vol] 101 mg/dL Invalid Interpretation Code 83 - 110 mg/dL AO ADM SS HbA1c (Bld) [Mass fraction] 6.2 % Invalid Interpretation Code 4.3 - 6.4 % AO ADM SS Potassium [Moles/Vol] 4.7 mmol/L Invalid Interpretation Code 3.5 - 5.1 mmol/L AO ADM SS Protein [Mass/Vol] 6.6 G/dL Invalid Interpretation Code 6.4 - 8.2 G/dL AO ADM SS Sodium [Moles/Vol] 140 mmol/L Invalid Interpretation Code 136 - 145 mmol/L AO ADM SS TSH Qn 1.60 m[IU]/L Invalid Interpretation Code 0.36 - 3.74 mcIU/mL AO ADM SS Urea nitrogen [Mass/Vol] 12 mg/dL Invalid Interpretation Code 7 - 18 mg/dL AO ADM SS Urea nitrogen/Creatinine [Mass ratio] 15 ratio Invalid Interpretation Code 7 - 27 ratio AO ADM SS Uric Acid Lvl 5.4 mg/dL Invalid Interpretation Code 2.6 - 6.2 mg/dL AO ADM SS LABORATORYOrdered By: Telma Owens on 08-05-2022 Cholesterol [Mass/Vol] 189 mg/dL Invalid Interpretation Code 0 - 200 mg/dL AO ADM SS Cholesterol in HDL [Mass/Vol] 71 mg/dL Invalid Interpretation Code 40 - 60 mg/dL AO ADM SS Cholesterol in LDL [Mass/Vol] 101 mg/dL Invalid Interpretation Code 0 - 130 mg/dL AO ADM SS Triglyceride [Mass/Vol] 83 mg/dL Invalid Interpretation Code 0 - 150 mg/dL AO ADM SS LABORATORYOrdered By: Telma Owens on 02-01-2022 Albumin DL <= 20 mg/L (U) [Mass/Vol] 465 mcg/dL Invalid Interpretation Code AO ADM SS Albumin/Creatinine DL <= 20 mg/L (U) [Mass ratio] 4 mcg/mg Invalid Interpretation Code 0 - 30 mcg/mg AO ADM SS Creatinine (U) [Mass/Vol] 126.5 mg/dL Invalid Interpretation Code 28.0 - 117.0 mg/dL AO ADM SS Albumin BCP dye [Mass/Vol] 3.9 G/dL Invalid Interpretation Code 3.4 - 4.8 G/dL AO ADM SS Albumin/Globulin [Mass ratio] 1.4 {ratio} Invalid Interpretation Code 1.1 - 2.5 ratio AO ADM SS ALP [Catalytic activity/Vol] 73 U/L Invalid Interpretation Code 40 - 135 U/L AO ADM SS ALT With P-5'-P [Catalytic activity/Vol] 30 U/L Invalid Interpretation Code 14 - 59 U/L AO ADM SS AST With P-5'-P [Catalytic activity/Vol] 18 U/L Invalid Interpretation Code 10 - 40 U/L AO ADM SS Bilirubin [Mass/Vol] 0.3 mg/dL Invalid Interpretation Code 0.2 - 1.0 mg/dL AO ADM SS Calcium [Mass/Vol] 9.4 mg/dL Invalid Interpretation Code 8.4 - 10.2 mg/dL AO ADM SS Chloride [Moles/Vol] 104 mmol/L Invalid Interpretation Code 98 - 107 mmol/L AO ADM SS Cholesterol [Mass/Vol] 177 mg/dL Invalid Interpretation Code 0 - 200 mg/dL AO ADM SS Cholesterol in HDL [Mass/Vol] 65 mg/dL Invalid Interpretation Code 40 - 60 mg/dL AO ADM SS Cholesterol in LDL [Mass/Vol] 86 mg/dL Invalid Interpretation Code 0 - 130 mg/dL AO ADM SS CO2 [Moles/Vol] 27 mmol/L Invalid Interpretation Code 23 - 31 mmol/L AO ADM SS Creatinine [Mass/Vol] 0.82 mg/dL Invalid Interpretation Code 0.55 - 1.02 mg/dL AO ADM SS Electrolyte Balance 10.0 mEq/L Invalid Interpretation Code 4.0 - 15.0 mEq/L AO ADM SS Globulin 2.7 G/dL Invalid Interpretation Code AO ADM SS Glucose [Mass/Vol] 97 mg/dL Invalid Interpretation Code 83 - 110 mg/dL AO ADM SS HbA1c (Bld) [Mass fraction] 6.5 % Invalid Interpretation Code 4.3 - 6.4 % AO ADM SS Potassium [Moles/Vol] 4.5 mmol/L Invalid Interpretation Code 3.5 - 5.1 mmol/L AO ADM SS Protein [Mass/Vol] 6.6 G/dL Invalid Interpretation Code 6.4 - 8.2 G/dL AO ADM SS Sodium [Moles/Vol] 141 mmol/L Invalid Interpretation Code 136 - 145 mmol/L AO ADM SS Triglyceride [Mass/Vol] 131 mg/dL Invalid Interpretation Code 0 - 150 mg/dL AO ADM SS TSH Qn 2.16 m[IU]/L Invalid Interpretation Code 0.36 - 3.74 mcIU/mL AO ADM SS Urea nitrogen [Mass/Vol] 13 mg/dL Invalid Interpretation Code 7 - 18 mg/dL AO ADM SS Urea nitrogen/Creatinine [Mass ratio] 16 ratio Invalid Interpretation Code 7 - 27 ratio AO ADM SS Uric Acid Lvl 6.2 mg/dL Invalid Interpretation Code 2.6 - 6.2 mg/dL AO ADM SS LABORATORYOrdered By: SYSTEM SYSTEM on 02-01-2022 GFR 83 ml/min/1.73sqm Invalid Interpretation Code AO Chemistry S GFR Non- 68 ml/min/1.73sqm Invalid Interpretation Code AO Chemistry S LABORATORYOrdered By: Telma Owens on 08-01-2021 Albumin BCP dye [Mass/Vol] 3.7 G/dL Invalid Interpretation Code 3.4 - 4.8 G/dL AO ADM SS Albumin/Globulin [Mass ratio] 1.3 {ratio} Invalid Interpretation Code 1.1 - 2.5 ratio AO ADM SS ALP [Catalytic activity/Vol] 66 U/L Invalid Interpretation Code 40 - 135 U/L AO ADM SS ALT With P-5'-P [Catalytic activity/Vol] 25 U/L Invalid Interpretation Code 14 - 59 U/L AO ADM SS AST With P-5'-P [Catalytic activity/Vol] 16 U/L Invalid Interpretation Code 10 - 40 U/L AO ADM SS Bilirubin [Mass/Vol] 0.3 mg/dL Invalid Interpretation Code 0.2 - 1.0 mg/dL AO ADM SS Calcium [Mass/Vol] 9.4 mg/dL Invalid Interpretation Code 8.4 - 10.2 mg/dL AO ADM SS Chloride [Moles/Vol] 103 mmol/L Invalid Interpretation Code 98 - 107 mmol/L AO ADM SS Cholesterol [Mass/Vol] 167 mg/dL Invalid Interpretation Code 0 - 200 mg/dL AO ADM SS Cholesterol in HDL [Mass/Vol] 63 mg/dL Invalid Interpretation Code 40 - 60 mg/dL AO ADM SS Cholesterol in LDL [Mass/Vol] 71 mg/dL Invalid Interpretation Code 0 - 130 mg/dL AO ADM SS CO2 [Moles/Vol] 28 mmol/L Invalid Interpretation Code 23 - 31 mmol/L AO ADM SS Creatinine [Mass/Vol] 0.77 mg/dL Invalid Interpretation Code 0.55 - 1.02 mg/dL AO ADM SS Electrolyte Balance 8.0 mEq/L Invalid Interpretation Code 4.0 - 15.0 mEq/L AO ADM SS Globulin 2.8 G/dL Invalid Interpretation Code AO ADM SS Glucose [Mass/Vol] 80 mg/dL Invalid Interpretation Code 83 - 110 mg/dL AO ADM SS HbA1c (Bld) [Mass fraction] 6.5 % Invalid Interpretation Code 4.3 - 6.4 % AO ADM SS Potassium [Moles/Vol] 4.4 mmol/L Invalid Interpretation Code 3.5 - 5.1 mmol/L AO ADM SS Protein [Mass/Vol] 6.5 G/dL Invalid Interpretation Code 6.4 - 8.2 G/dL AO ADM SS Sodium [Moles/Vol] 139 mmol/L Invalid Interpretation Code 136 - 145 mmol/L AO ADM SS Triglyceride [Mass/Vol] 163 mg/dL Invalid Interpretation Code 0 - 150 mg/dL AO ADM SS TSH Qn 1.76 m[IU]/L Invalid Interpretation Code 0.36 - 3.74 mcIU/mL AO ADM SS Urea nitrogen [Mass/Vol] 14 mg/dL Invalid Interpretation Code 7 - 18 mg/dL AO ADM SS Urea nitrogen/Creatinine [Mass ratio] 18 ratio Invalid Interpretation Code 7 - 27 ratio AO ADM SS LABORATORYOrdered By: SYSTEM SYSTEM on 08-01-2021 GFR 89 ml/min/1.73sqm Invalid Interpretation Code AO Chemistry S GFR Non- 73 ml/min/1.73sqm Invalid Interpretation Code AO Chemistry S CNPStacey 12-26-2020 CNPN [facility] SHY MARTIN ([id number]) 1950 F Date Time Provider Department 12/26/20 LORENA ART During your visit today, we recorded the following information about you: Billie Mina RN 12/26/2020 2:21 PM Signed I spoke with the patient today about follow up breast imaging. She stated that she had this done in [place] and thought that they had sent us the imaging. I don't see that we received that so she said that she would try again to get us those results. She also stated that the imaging showed that she would need repeat left mammogram in 6 months and that she would have her PCP order that . Billie Mina RN Allergies As of Date: 12/26/2020 Noted Allergy Reaction FOSAMAX (ALENDRONATE) 07/05/2020 14 - Other: See Comments Comments: Patient states I had jaw pain when taking Fosamax. ULTRAM (TRAMADOL HCL) 05/15/2005 5 - Intolerance Comments: racing heart CODEINE 05/14/2005 5 - Intolerance Comments: wires me up anxious, insomnia MACRODANTIN (NITROFURANTOIN) 06/14/2020 5 - Intolerance PREDNISONE 06/14/2020 5 - Intolerance VISTARIL (HYDROXYZINE) 06/14/2020 5 - Intolerance Date Reviewed: 07/05/2020 Reviewed by: Ashley Tenorio (Rn) RAVEN Calderón - Fully Assessed Reason for Visit: Appointment [186] Prescriptions as of 12/26/2020 Sig: METOPROLOL TARTRATE ORAL Take by mouth. PIOGLITAZONE ORAL Take by mouth. OMEPRAZOLE 40 MG CAPSULE,LUTHER* Take 40 mg by mouth once santiago* LEVOTHYROXINE 50 MCG CAPSULE Take 50 mcg by mouth daily be* ATORVASTATIN 20 MG TABLET Take 20 mg by mouth once santiago* JANUMET 50 MG-1,000 MG TABLET Take 1 tablet by mouth twice * GABAPENTIN 100 MG CAPSULE Take 100 mg by mouth. FERROUS SULFATE 325 MG (65 MG* Take 325 mg by mouth daily wi* COQ10 SG 100 ORAL Take by mouth. MULTIVITAMIN TABLET Take 1 tablet by mouth once d* EXENATIDE ER 2 MG/0.65 ML SUB* Inject 2 mg subcutaneously on* CHILDREN'S CALCIUM GUMMIES OR* Take by mouth. CHILDREN'S MULTI-VITAMIN JAYESH* Take by mouth. BIOTIN 5,000 MCG GUMMY FOSAMAX 70 MG TAB one tablet once a week GLUCOPHAGE XR 500 MG TABLET,E* 2 every morning; one every af* LISINOPRIL 5 MG TABLET Take one(1) tablet daily. AVANDIA 8 MG TABLET Take one(1) tablet daily. CRESTOR 20 MG TABLET Take one(1) tablet daily. PRILOSEC 20 MG CAPSULE,DELAYE* Take one(1) tablet daily. Problem List As Of Date 12/26/2020 Noted Resolved Chest pain on exertion [R07.9] 06/14/2020 Diabetes mellitus (HCC) [E11.9] 06/14/2020 Dyslipidemia [E78.5] 06/14/2020 Hypertension [I10] 06/14/2020 Hypothyroidism [E03.9] 06/14/2020 Mass of breast [N63.0] 06/14/2020 Neuropathy [G62.9] 06/14/2020 Encounter Status:Closed by BILLIE MINA RN on 12/26/20 [facility] 11-14-2020 [facility] Telephone ([employer]) SHY MARTIN ([id number]) 1950 F Date Time Provider Department 11/14/20 LORENA ART During your visit today, we recorded the following information about you: Billie Mina RN 11/14/2020 11:08 AM Signed I left a voicemail for the patient to see if she has completed her mammogram elsewhere or if she needs help scheduling it. She also need an office visit with Dr. Art once the breast imaging has been completed. Billie Mina RN Allergies As of Date: 11/14/2020 Noted Allergy Reaction FOSAMAX (ALENDRONATE) 07/05/2020 14 - Other: See Comments Comments: Patient states I had jaw pain when taking Fosamax. ULTRAM (TRAMADOL HCL) 05/15/2005 5 - Intolerance Comments: racing heart CODEINE 05/14/2005 5 - Intolerance Comments: wires me up anxious, insomnia MACRODANTIN (NITROFURANTOIN) 06/14/2020 5 - Intolerance PREDNISONE 06/14/2020 5 - Intolerance VISTARIL (HYDROXYZINE) 06/14/2020 5 - Intolerance Date Reviewed: 07/05/2020 Reviewed by: Ashley Tenorio (Rn) RAVEN Calderón - Fully Assessed Reason for Visit: Appointment [186] Prescriptions as of 11/14/2020 Sig: METOPROLOL TARTRATE ORAL Take by mouth. PIOGLITAZONE ORAL Take by mouth. OMEPRAZOLE 40 MG CAPSULE,LUTHER* Take 40 mg by mouth once santiago* LEVOTHYROXINE 50 MCG CAPSULE Take 50 mcg by mouth daily be* ATORVASTATIN 20 MG TABLET Take 20 mg by mouth once santiago* JANUMET 50 MG-1,000 MG TABLET Take 1 tablet by mouth twice * GABAPENTIN 100 MG CAPSULE Take 100 mg by mouth. FERROUS SULFATE 325 MG (65 MG* Take 325 mg by mouth daily wi* COQ10 SG 100 ORAL Take by mouth. MULTIVITAMIN TABLET Take 1 tablet by mouth once d* EXENATIDE ER 2 MG/0.65 ML SUB* Inject 2 mg subcutaneously on* CHILDREN'S CALCIUM GUMMIES OR* Take by mouth. CHILDREN'S MULTI-VITAMIN JAYESH* Take by mouth. BIOTIN 5,000 MCG GUMMY FOSAMAX 70 MG TAB one tablet once a week GLUCOPHAGE XR 500 MG TABLET,E* 2 every morning; one every af* LISINOPRIL 5 MG TABLET Take one(1) tablet daily. AVANDIA 8 MG TABLET Take one(1) tablet daily. CRESTOR 20 MG TABLET Take one(1) tablet daily. PRILOSEC 20 MG CAPSULE,DELAYE* Take one(1) tablet daily. Problem List As Of Date 11/14/2020 Noted Resolved Chest pain on exertion [R07.9] 06/14/2020 Diabetes mellitus (HCC) [E11.9] 06/14/2020 Dyslipidemia [E78.5] 06/14/2020 Hypertension [I10] 06/14/2020 Hypothyroidism [E03.9] 06/14/2020 Mass of breast [N63.0] 06/14/2020 Neuropathy [G62.9] 06/14/2020 Encounter Status:Closed by BILLIE MINA RN on [facility]12/20 [facility] SHY [facility] ([id number]) 1950 F Date Time Provider Department 10/17/20 LORENA ART During your visit today, we recorded the following information about you: Rosibel Tejada RN 10/17/2020 11:24 AM Signed Pt called in stating she had lump removed to right breast on 07/05/[address] Art. Stated she and Dr. Art had discussed pt getting mammogram's every 6 months. Last mammogram was in April of last year, so she would be due this month. Wondering if still ok she proceeds with getting scheduled for mammogram? Rosibel Solomon LPN 10/18/2020 8:33 AM Signed Lorena Art [facility] General Surgery Pool 14 hours ago (6:03 PM) Please tell patient that I have ordered the studies here, however, if she wants it at [facility], she will have to have her family physician order it, as I cannot do so, thanks Pt notified AND verbalized understanding. Pt plans to get imaging through PCP Arnaldo Solomon Lpn Allergies As of Date: 10/17/2020 Noted Allergy Reaction FOSAMAX (ALENDRONATE) 07/05/2020 14 - Other: See Comments Comments: Patient states I had jaw pain when taking Fosamax. ULTRAM (TRAMADOL HCL) 05/15/2005 5 - Intolerance Comments: racing heart CODEINE 05/14/2005 5 - Intolerance Comments: wires me up anxious, insomnia MACRODANTIN (NITROFURANTOIN) 06/14/2020 5 - Intolerance PREDNISONE 06/14/2020 5 - Intolerance VISTARIL (HYDROXYZINE) 06/14/2020 5 - Intolerance Date Reviewed: 07/05/2020 Reviewed by: Ashley Tenorio (Rn) RAVEN Calderón - Fully Assessed Reason for Visit: Patient Question [1477] Prescriptions as of 10/17/2020 Sig: METOPROLOL TARTRATE ORAL Take by mouth. PIOGLITAZONE ORAL Take by mouth. OMEPRAZOLE 40 MG CAPSULE,LUTHER* Take 40 mg by mouth once santiago* LEVOTHYROXINE 50 MCG CAPSULE Take 50 mcg by mouth daily be* ATORVASTATIN 20 MG TABLET Take 20 mg by mouth once santiago* JANUMET 50 MG-1,000 MG TABLET Take 1 tablet by mouth twice * GABAPENTIN 100 MG CAPSULE Take 100 mg by mouth. FERROUS SULFATE 325 MG (65 MG* Take 325 mg by mouth daily wi* COQ10 SG 100 ORAL Take by mouth. MULTIVITAMIN TABLET Take 1 tablet by mouth once d* EXENATIDE ER 2 MG/0.65 ML SUB* Inject 2 mg subcutaneously on* CHILDREN'S CALCIUM GUMMIES OR* Take by mouth. CHILDREN'S MULTI-VITAMIN JAYESH* Take by mouth. BIOTIN 5,000 MCG GUMMY FOSAMAX 70 MG TAB one tablet once a week GLUCOPHAGE XR 500 MG TABLET,E* 2 every morning; one every af* LISINOPRIL 5 MG TABLET Take one(1) tablet daily. AVANDIA 8 MG TABLET Take one(1) tablet daily. CRESTOR 20 MG TABLET Take one(1) tablet daily. PRILOSEC 20 MG CAPSULE,DELAYE* Take one(1) tablet daily. Problem List As Of Date 10/17/2020 Noted Resolved Chest pain on exertion [R07.9] 06/14/2020 Diabetes mellitus (HCC) [E11.9] 06/14/2020 Dyslipidemia [E78.5] 06/14/2020 Hypertension [I10] 06/14/2020 Hypothyroidism [E03.9] 06/14/2020 Mass of breast [N63.0] 06/14/2020 Neuropathy [G62.9] 06/14/2020 Encounter Status:Closed by ARNALDO SOLOMON LPN on 10/18/20 Normal [facility] No Panel Information [facility] Vital Signs Date Time Vital Sign Value Performing Clinician Faci lity 03-30-2024 09:26-0400 Body height 167.6 cm Ann-Marie Bell MD Work Phone: [facility] 03-30-2024 09:26-0400 Body mass index (BMI) [Ratio] 28.25 kg/m2 Ann-Marie Bell MD Work Phone: [facility] 03-30-2024 09:26-0400 Body weight 79.38 kg Ann-Marie Bell MD Work Phone: [facility] 03-30-2024 09:26-0400 Diastolic blood pressure 70 mm[Hg] Ann-Marie Bell MD Work Phone: [facility] 03-30-2024 09:26-0400 Heart rate 91 /min Ann-Marie Bell MD Work Phone: [facility] 03-30-2024 09:26-0400 SaO2% (BldA) [Mass fraction] 97 % Ann-Marie Bell MD Work Phone: [facility] 03-30-2024 09:26-0400 Systolic blood pressure 108 mm[Hg] Ann-Marie Bell MD Work Phone: [facility] 11-06-2022 10:52-0400 Body height 167.6 cm Ann-Marie Bell MD Work Phone: [facility] 11-06-2022 10:52-0400 Body weight 82.56 kg Ann-Marie Bell MD Work Phone: [facility] 11-06-2022 10:52-0400 Diastolic blood pressure 60 mm[Hg] Ann-Marie Bell MD Work Phone: [facility] 11-06-2022 10:52-0400 Heart rate 74 /min Ann-Marie Bell MD Work Phone: [facility] 11-06-2022 10:52-0400 SaO2% (BldA) [Mass fraction] 97 % Ann-Marie Bell MD Work Phone: [facility] 11-06-2022 10:52-0400 Systolic blood pressure 90 mm[Hg] Ann-Marie Bell MD Work Phone: [facility] 05-08-2022 10:38-0400 Body height 166.4 cm Ann-Marie Bell MD Work Phone: [facility] 05-08-2022 10:38-0400 Body weight 80.65 kg Ann-Marie Bell MD Work Phone: [facility] 05-08-2022 10:38-0400 Diastolic blood pressure 58 mm[Hg] Ann-Marie Bell MD Work Phone: [facility] 05-08-2022 10:38-0400 Heart rate 67 /min Ann-Marie Bell MD Work Phone: [facility] 05-08-2022 10:38-0400 SaO2% (BldA) [Mass fraction] 97 % Ann-Marie Bell MD Work Phone: [facility] 05-08-2022 10:38-0400 Systolic blood pressure 107 mm[Hg] Ann-Marie Bell MD Work Phone: [facility] 07-04-2021 09:26-0500 Body temperature 98.6 [degF] ANN-MARIE SILVA DO [facility] 07-04-2021 09:26-0500 diastolic 76 mm[Hg] ANN-MARIE SILVA DO [facility] 07-04-2021 09:26-0500 Heart rate 72 /min ANN-MARIE SILVA DO [facility] 07-04-2021 09:26-0500 Respiratory rate 16 /min ANN-MARIE SILVA DO [facility] 07-04-2021 09:26-0500 Signs/Symptoms Transfusion Reaction ANN-MARIE SILVA DO [facility] 07-04-2021 09:26-0500 systolic 124 mm[Hg] ANN-MARIE RILEYY DO [facility] 07-04-2021 08:05-0500 Body temperature 98.6 [degF] ANN-MARIE SENIORSAY DO [facility] 07-04-2021 08:05-0500 diastolic 56 mm[Hg] ANN-MARIE AILYN DO [facility] 07-04-2021 08:05-0500 Heart rate 78 /min ANN-MARIE RILEYY DO [facility] 07-04-2021 08:05-0500 Respiratory rate 16 /min ANN-MARIE SILVA DO [facility] 07-04-2021 08:05-0500 Signs/Symptoms Transfusion Reaction ANN-MARIE SILVA DO [facility] 07-04-2021 08:05-0500 systolic 99 mm[Hg] ANN-MARIE SENIORSAY DO [facility] 07-04-2021 07:35-0500 Body height 167 cm ANN-MARIE SENIORSAY DO [facility] 07-04-2021 07:35-0500 Body temperature 98.6 [degF] ANN-MARIE SENIORSAY DO [facility] 07-04-2021 07:35-0500 Body weight 80 kg ANN-MARIE SILVA DO [facility] 07-04-2021 07:35-0500 Body weight 28.69 kg/m2 ANN-MARIE SILVA DO [facility] 07-04-2021 07:35-0500 diastolic 62 mm[Hg] ANN-MARIE SILVA DO [facility] 07-04-2021 07:35-0500 Heart rate 78 /min ANN-MARIE SILVA DO [facility] 07-04-2021 07:35-0500 Respiratory rate 16 /min ANN-MARIE SILVA DO [facility] 07-04-2021 07:35-0500 systolic 120 mm[Hg] ANN-MARIE SILVA DO [facility] Encounters Encounter Date Encounter Type Care Provider Facility Start: 03-30-2024 End: 03-30-2024 Patient encounter procedure Ann-Marie Bell MD Work Phone: [facility] [place] Comment on above: Paroxysmal atrial fi brillation (HCC) (Primary Dx); At risk for stroke; Anticoagulant long-term use; PAC (premature atrial contraction); SVT (supraventricular tachycardia) (HCC); Palpitations; Obstructive sleep apnea syndrome Start: 03-30-2024 End: 03-30-2024 ambulatory ANN-MARIE SILVA Facility:[facility] Start: 03-04-2024 End: 03-04-2024 Patient encounter procedure ANN-MARIE AILYN DO [facility] Start: 09-04-2023 ambulatory ANN-MARIE SILVA DO Facil ity:B Start: 09-04-2023 End: 09-08-2023 Outreach Lab ANN-MARIE SILVA DO [facility] Start: 08-30-2023 End: 08-31-2023 ambulatory ANN-MARIE SILVA DO Facility:B Start: 07-01-2023 End: 07-02-2023 ambulatory ANN-MARIE SILVA DO Facility:B Start: 07-01-2023 End: 07-01-2023 Patient encounter procedure ANN-MARIE SILVA DO [facility] Start: 02-19-2023 End: 02-20-2023 ambulatory ANN-MARIE SILVA DO Facility:[facility] Start: 11-28-2022 End: 11-29-2022 ambulatory BUD ROSENBERG [employer] Facility:[facility] Start: 11-06-2022 End: 11-06-2022 Patient encounter procedure Ann-Marie Bell MD Work Phone: [facility] [place] Comment on above: Paroxysmal atrial fi brillation (HCC) (Primary Dx); SVT (supraventricular tachycardia) (HCC); PAC (premature atrial contraction); Palpitations; At risk for stroke; Anticoagulant long-term use Start: 08-05-2022 End: 08-05-2022 Patient encounter procedure ANN-MARIE SILVA DO [facility] [place] [facility] Start: 05-08-2022 End: 05-08-2022 Patient encounter procedure Ann-Marie Bell MD Work Phone: [facility] [place] Comment on above: Paroxysmal atrial fi brillation (HCC) (Primary Dx); SVT (supraventricular tachycardia) (HCC); PAC (premature atrial contraction); At risk for stroke; Anticoagulant long-term use; Obstructive sleep apnea syndrome Start: 04-17-2022 Chart abstracting Juliann Groves RN [facility] [place] Start: 02-01-2022 End: 02-01-2022 Patient encounter procedure ANN-MARIE SILVA DO [facility] [place] [facility] Start: 08-21-2021 End: 04-28-2023 OTHER THERAPY ANN-MARIE SILVA DO [facility] Start: 08-01-2021 End: 08-01-2021 Patient encounter procedure ANN-MARIE SILVA DO [facility] Start: 07-04-2021 End: 07-04-2021 Patient encounter procedure ANN-MARIE SILVA DO [facility] Start: 05-30-2021 End: 05-30-2021 Patient encounter procedure ANN-MARIE SILVA DO [facility] Start: 06-06-2020 End: 06-06-2020 Patient encounter procedure Lorena Art Work Phone: [facility] Start: 06-06-2020 Results Only Lorena benedict Work Phone: [facility] Start: 05-24-2020 End: 05-24-2020 Patient encounter procedure Lorena Art Work Phone: [facility] Start: 05-24-2020 Results Only Lorena benedict Work Phone: Gastro[facility]Endoscopy Procedures Date Procedure Procedure Detail Performing Clinician Start: 03-30-2024 Ecg routine ecg w/least 12 lds w/i&r Ann-Marie Bell MD Work Phone: Start: 11-06-2022 Ecg routine ecg w/least 12 lds w/i&r Ann-Marie Bell MD Work Phone: Start: 05-08-2022 Ecg routine ecg w/least 12 lds w/i&r Ann-Marie Bell MD Work Phone: Start: 06-06-2020 PT ED PATIENT INFORMATION Lorena benedict Work Phone: Start: 06-06-2020 PT ED [facility] oLrena Art Work Phone: Start: 05-24-2020 PT ED PATIENT INFORMATION Lorena benedict Work Phone: Start: 05-24-2020 PT ED [facility] Lorena Art Work Phone: Start: 05-22-2020 Cardiovascular stress testing ANN-MARIE KEE DO Start: 05-22-2020 Echocardiography ANN-MARIE SILVA DO Comment on above: EF 60-65% Start: 05-09-2020 Electrocardiographic monitor and recorder, device (physical object) ANN-MARIE SILVA DO Comment on above: 48 HOUR Start: 03-02-2019 Open reduction of fracture of patella with internal fixation ANN-MARIE SILVA DO Comment on above: Left Knee Start: 05-18-2015 Esophagogastroduodenoscopy ANN-MARIE Agarwal DO Start: 12-05-2012 Bunionectomy with adductor tendon transfer ANN-MARIE SILVA DO Appendectomy ANN-MARIE SILVA DO Hysterectomy ANN-MARIE SILVA DO Comment on above: WITH APPENDECTOMY Laminectomy ANN-MARIE SILVA DO Comment on above: L3-4, L4-5 Ligation of fallopian tube R HELLEN AILYN MADDEN Plan of Treatment Date Care Activity Detail Author Start: 02-22-2029 Urine microalbumin profile [facility] Start: 03-30-2025 BP Controlled (<130/80) BP Controlle d (<130/80) [facility] Start: 10-08-2024 End: 10-08-2024 Patient encounter procedure 10/08/2024 9:40 AM EDT Office Visit [facility] [address] [place] [address] Ann-Marie Bell MD [address] [id number] 6mo follow up [facility] Miri Joe Comment on above: 6mo follow up Start: 03-07-2024 Covid-19 Vaccine ( season) Covid-19 Vaccine ( season) [facility] Start: 03-07-2024 Influenza vaccination Influenza Vacc ine (#1) [facility] Start: 11-07-2023 BP CONTROLLED (<130/80) BP CONTROLLE D (<130/80) [facility] Start: 07-07-2023 Advance Directive Discussion Advance Directive Discussion [facility] Start: 05-08-2023 BP CONTROLLED (<130/80) BP CONTROLLE D (<130/80) [facility] Start: 2023 RSV Vaccine (1 - 1-d ose 75+ series) RSV Vaccine (1 - 1-dose 75+ series) [facility] Start: 07-07-2022 ADVANCE DIRECTIVE DISCUSSION ADVANCE DIRECTIVE DISCUSSION [facility] Start: 07-07-2022 DEPRESSION ASSESSMENT DEPRESSION ASS ESSMENT [facility] Start: 03-07-2022 Influenza vaccination INFLUENZA (#1) [facility] Start: 08-09-2021 COVID-19 VACCINE (4 - Booster for Pfizer series) COVID-19 VACCINE (4 - Booster for Pfizer series) [facility] Start: 07-07-2021 ADVANCE DIRECTIVE DISCUSSION ADVANCE DIRECTIVE DISCUSSION [facility] Start: 07-07-2021 DEPRESSION ASSESSMENT DEPRESSION ASS ESSMENT [facility] Start: 03-07-2020 Influenza vaccination INFLUENZA (#1) [facility] Start: 04-26-2018 Pneumococcal Vaccine : 65+ (3 of 3 - PPSV23 or PCV20) Pneumococcal Vaccine: 65+ (3 of 3 - PPSV23 or PCV20) [facility] Start: 04-26-2018 PNEUMOCOCCAL: 65+ (3 - PPSV23 if available, else PCV20) PNEUMOCOCCAL: 65+ (3 - PPSV23 if available, else PCV20) [facility] Start: 06-21-2013 SHINGRIX VACCINE (2 of 3) BONNER GRIX VACCINE (2 of 3) [facility] Start: 2013 ADVANCE DIRECTIVE DISCUSSION ADVANCE DIRECTIVE DISCUSSION [facility] Start: 2013 BONE DENSITY BONE DENSITY [facility] Start: 2013 PNEUMOVAX AGE 65 AND OVER WITH 5YR LOOKBACK (#1) PNEUMOVAX AGE 65 AND OVER WITH 5YR LOOKBACK (#1) [facility] Start: 2013 Screening for osteoporosis Bone Dens ity Screening [facility] Start: 1998 COLORECTAL CANCER SCREENING,SEE MODIFIER COLORECTAL CANCER SCREENING,SEE MODIFIER [facility] Start: 1998 SHINGRIX VACCINE (1 of 2) BONNER GRIX VACCINE (1 of 2) [facility] Start: 1993 COLOGUARD (FIT-DNA) COLOGUARD (FIT-D NA) [facility] Start: 1993 Colonoscopy COLONOSCOPY [facility] Start: 1993 COLORECTAL CANCER SCREENING COLORECTAL CANCER SCREENING [facility] Start: [address] COLONOGRAPHY [facility] Start: 1993 FECAL OCCULT BLOOD FECAL OCCULT BLOO D [facility] Start: 1993 Screening for malign ant neoplasm of colon [facility] Start: 1993 SIGMOIDOSCOPY SIGMOIDOSCOPY [facility] Start: 1988 Mammography MAMMOGRAM [facility] Start: 1967 Urine microalbumin profile DTAP,TDAP ,TD (1 - Tdap) [facility] Start: 1966 ANNUAL PCP TEAM 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 APPLICATION DEVELOPER KELLEE DISEASE VISIT ANNUAL PCP TEAM CHRONIC DISEASE VISIT [facility] Start: 1966 Anxiety Screening Anxiety Screening [facility] Start: 1966 BP CONTROLLED (<130/80) BP CONTROLLE D (<130/80) [facility] Start: 1966 Depression Screening Depression Scre ening [facility] Start: 1966 Hepatitis B surface antibody level LDL CHOLESTEROL [facility] Start: 1966 HEPATITIS C SCREENING HEPATITIS C SC [facility] Start: 1966 Hepatitis C screening Hepatitis C [facility] Start: 1958 [object Object] DIABETIC FOOT EXAM C [facility] Start: 1958 Diabetic foot examination Diabetic F oot Exam [facility] Start: 1958 Glaucoma screening Dilated Retinal E xam [facility] Start: 1958 Hepatitis B screening URINE ALBUMIN:CREATININE RATIO [facility] Start: 1958 Hepatitis C antibody , confirmatory test DILATED RETINAL EXAM [facility] Start: 1954 PNEUMOCOCCAL: 65+ (1 - PCV) PNEUMOCOCCAL: 65+ (1 - PCV) [facility] Start: 1953 HbA1c (Bld) [Mass fraction] HBA1C [facility] Start: 1953 Hemoglobin A1c measurement HbA1C [facility] Start: 1948 COVID-19 VACCINE (#1) COVID-19 VACCI NE (#1) [facility] Ephys evl trnsptl tx atrial fib isolat pulm vein COMPLETE EPS W/PVI ABL W/WO 3D MAP ICE Paroxysmal atrial fibrillation (HCC) SVT (supraventricular tachycardia) (HCC) Palpitations [facility] Percutaneous translu franky ablation of atrioventricular node COMPLETE EPS W/SVT ABL W/WO 3D MAP LA PACE REC Paroxysmal atrial fibrillation (HCC) SVT (supraventricular tachycardia) (HCC) Palpitations [place] [facility] PT ED PATIENT INFORMATION [facility] PT ED WOMEN'S [facility] Immunizations Immunization Date Immunization Notes Care Provider [facility] 06-29-2023 influenza virus vaccine, unspecified formulation Ann-Marie Bell MD Work Phone: [facility] 04-02-2022 COVID-19, mRNA, LNP- S, bivalent booster, PF, 30 mcg/0.3 mL dose; Translations: [Pfizer-BioNTech COVID-19 (12y+) Bivalent Booster Vaccine PF] ANN-MARIE SILVA DO [facility] Comment on above: Early/Late Reason: E ailyn/Late Reason: Other: 04-02-2022 SARSCoV2 mRNA([id number]+)bi jelena vac 1; Translations: [Pfizer-BioNTech COVID-19 (12y+) Bivalent Booster Vaccine PF] ANN-MARIE SILVA DO [facility] Comment on above: Early/Late Reason: E ailyn/Late Reason: Other: 04-02-2022 influenza (aIIV4) vaccine, age 65+ yr, quadrivalent, PF (FLUAD QUADRIVALENT) Ann-Marie Bell MD Work Phone: [facility] Work Phone: 04-02-2022 influenza, high dose seasonal, preservative-free ANN-MARIE SILVA DO [facility] 06-14-2021 influenza, injectabl e, quadrivalent, preservative free Ann-Marie Bell MD Work Phone: [facility] Work Phone: 06-14-2021 influenza, injectabl e, quadrivalent, contains preservative; Translations: [Fluarix PF Quadrivalent ] ANN-MARIE SILVA DO [facility] 06-14-2021 COVID-19, mRNA, LNP- S, PF, 30 mcg/0.3 mL dose; Translations: [Pfizer-BioNTech COVID-19 Vaccine] ANN-MARIE SILVA DO [facility] 10-05-2020 SARS-CoV-2 mRNA (tozinameran) vaccine [facility] 09-14-2020 SARS-CoV-2 mRNA (tozinameran) vaccine [facility] DO [facility] Comment on above: Result Comment: 2020: [id number] 04-12-2020 influenza, injectabl e, quadrivalent, preservative free; Translations: [Fluarix PF Quadrivalent ] ANN-MARIE SILVA DO [facility] 06-08-2019 influenza, injectabl e, quadrivalent, preservative free; Translations: [Fluarix PF Quadrivalent ] ANN-MARIE SILVA DO [facility] 02-22-2019 tetanus toxoid, redu jeff diphtheria toxoid, and acellular pertussis vaccine, adsorbed; Translations: [Boostrix (Tdap)] ANN-MARIE SILVA DO [facility] 04-22-2018 influenza, injectabl e, quadrivalent, preservative free Ann-Marie Bell MD Work Phone: [facility] Work Phone: 03-28-2017 influenza, injectabl e, quadrivalent, preservative free Ann-Marie Bell MD Work Phone: [facility] Work Phone: 06-17-2016 meningococcal polysaccharide vaccine (MPSV4) Ann-Marie Bell MD Work Phone: [facility] Work Phone: 06-04-2016 pneumococcal conjuga te vaccine, 13 valent ANN-MARIE SILVA DO [facility] 05-08-2016 hepatitis A vaccine, adult dosage ANN-MARIE SILVA DO [facility] 05-08-2016 poliovirus vaccine, inactivated Ann-Marie Bell MD Work Phone: [facility] Work Phone: 05-08-2016 tetanus and diphther ia toxoids, adsorbed, preservative free, for adult use (5 Lf of tetanus toxoid and 2 Lf of diphtheria toxoid) ANN-MARIE SILVA DO [facility] 05-08-2016 typhoid capsular polysaccharide vaccine Ann-Marie Bell MD Work Phone: [facility] Work Phone: 05-08-2016 yellow fever vaccine Ann-Marie Bell MD Work Phone: [facility] Work Phone: 05-07-2016 adenovirus, type 4 a nd type 7, live, oral ANN-MARIE SILVA DO [facility] 05-07-2016 yellow fever vaccine ANN-MARIE SILVA DO [facility] 04-06-2016 adenovirus, type 4 a nd type 7, live, oral ANN-MARIE SILVA DO [facility] 04-06-2016 hepatitis A vaccine, adult dosage [facility] 04-06-2016 poliovirus vaccine, unspecified formulation Ann-Marie Bell MD Work Phone: [facility] Work Phone: 04-06-2016 tetanus and diphther ia toxoids, adsorbed, preservative free, for adult use (5 Lf of tetanus toxoid and 2 Lf of diphtheria toxoid) [facility] DO [facility] 04-06-2016 yellow fever vaccine ANN-MARIE SILVA DO [facility] 03-07-2016 influenza, high dose seasonal, preservative-free Ann-Marie Bell MD Work Phone: [facility] Work Phone: 11-05-2015 rubella virus vaccine Ann-Marie Bell MD Work Phone: [facility] Work Phone: 05-11-2015 influenza, seasonal, injectable, preservative free Ann-Marie Bell MD Work Phone: [facility] Work Phone: 05-05-2013 influenza, seasonal, injectable, preservative free Ann-Marie Bell MD Work Phone: [facility] Work Phone: 04-26-2013 pneumococcal polysaccharide vaccine, 23 valent Ann-Marie Bell MD Work Phone: [facility] Work Phone: 04-26-2013 zoster vaccine, live ANN-MARIE SILVA DO [facility] 07-07-2012 zoster vaccine, live ANN-MARIE SILVA DO [facility] 07-07-2011 diphtheria, tetanus toxoids and acellular pertussis vaccine, unspecified formulation Ann-Marie Bell MD Work Phone: [facility] Work Phone: 07-07-2011 tetanus toxoid, redu jeff diphtheria toxoid, and acellular pertussis vaccine, adsorbed ANN-MARIE SILVA DO [facility] 06-02-2007 influenza, seasonal, injectable Ann-Marie Bell MD Work Phone: [facility] Work Phone: 07-16-2001 influenza, seasonal, injectable Ann-Marie Bell MD Work Phone: [facility] Work Phone: 07-07-2001 diphtheria, tetanus toxoids and acellular pertussis vaccine, unspecified formulation Ann-Marie Bell MD Work Phone: [facility] Work Phone: 07-31-2000 influenza, seasonal, injectable Ann-Marie Bell MD Work Phone: [facility] Work Phone: 12-21-1999 hepatitis B vaccine, adult dosage ANN-MARIE SILVA DO [facility] 05-22-1999 hepatitis B vaccine, adult dosage ANN-MARIE SILVA DO [facility] 04-17-1999 hepatitis B vaccine, adult dosage ANN-MARIE SILVA DO [facility] Payers Date Payer Category Payer Unknown MMO MMO MEDICARE SUPPLEMENT [id number] 2020-Present Indemnity [id number] 2020 Unknown MMO MMO MEDICARE SUPPLEMENT [id number] 2020-Present [phone] [address] [place] [address] Indemnity [id number] 2020 Unknown [id number] 2013 Medicare MEDICARE MEDICAR E A AND B [id number] 2013-Present [place] Medicare [id number] 2013 Medicare MEDICARE MEDICAR E A AND B [id number] 2013-Present [phone] [address] [address] [place] [address] Medicare [id number] 2013 Medicare [id number] 1948 Unknown [id number] 1948 Unknown [id number] 1948 Unknown [id number] 1948 Unknown [id number] 1948 Unknown [id number] Social History Date Type Detail Facility Start: 06-26-2005 End: 05-08-2022 Tobacco smoking status NHIS Never smoker [facility] Comment on above: no smoke exposure Start: 06-26-2005 End: 03-30-2024 Alcohol intake Current non-drinker of alcohol (finding) [facility] Start: 1950 Sex Assigned At Not on file [facility] Start: 04-28-2022 End: 05-08-2022 Exposure to SARS-CoV-2 (event) Not sure [facility] Sex Assigned At Female [facility] Start: 07-05-2020 End: 05-08-2022 Tobacco use and exposure Smokeless tobacco non-user [facility] Start: 11-06-2022 End: 03-30-2024 History of Social function [facility] Start: 11-06-2022 End: 03-30-2024 Tobacco use panel [facility] National Score (1-100), lower number is lower risk 64 [facility] Goals Date Patient Goal Desired Activity /State Personal health goal Clinical Notes 04-17-2022 to 03-30-2024 Carolyn Howard MA - 03/30/2024 9:32 AM Carolyn Nuñez MA - 03/30/2024 9:32 AM Ann-Marie Linder MD - 03/30/2024 9:20 AM Jae Bell MD - 11/06/2022 11:00 AM EDT Note Date & Type Note Facility 03-30-2024 Nurse Note Patient has no cardiac complaints today. [facility] 03-30-2024 Nurse Note Patient has no cardiac complaints today. documented in this encounter [facility] 03-30-2024 History of Present illness Narrative PRIMARY CARE PHYSICIAN: Ann-Marie Silva [address] [place] [address] Patient Care Team: Ann-Marie Silva DO as PCP - General (Family Medicine) Ann-Marie Bell MD as Specialty [facility] (Cardiology) Tan Gandhi MD as Specialty [facility] (Cardiology) Pearl Levy MD as Specialty [facility] (Urology) Sarath Alvarez MD as Specialty [facility] (Neurology) CHIEF COMPLAINT: Follow up for arrhythmia HISTORY OF PRESENT ILLNESS: Ms. Martin is a 73 year old female who presents today for a cardiovascular medicine follow-up visit. History copied from previous notes, edited as needed: Summary of previous notes: Ms. Martin was diagnosed with atrial fibrillation in about 02/2022. She experienced tightness in the chest, rapid heartbeats, palpitations --- she had experienced such symptoms for perhaps a couple months prior (even a year prior?) although she also has been found to have SVT. In February 2022 when she was found to have atrial fibrillation with rapid ventricular response rates she was treated initially with IV metoprolol and IV amiodarone, spontaneously converted to sinus rhythm. She was discharged on PO metoprolol, initially 100 mg twice daily but then decreased to 50 mg twice daily due to side effects (fatigue, low BP). At some point she was treated with Eliquis oral anticoagulation for stroke prevention. Symptoms have been under reasonable control with beta-kiki therapy, so it is reasonable to continue with this treatment strategy for now. 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 Class III agents sotalol or dofetilide could be considered, and amiodarone would be less desirable if other options exist. Catheter ablation is also a consideration for the atrial fibrillation but also for the SVT --- if the latter were to be inducible. We reviewed her experience with various medications: she had hair loss that was attributed to metoprolol, improved after stopping it. She had dizziness or lightheadedness with diltiazem, improved after stopping it. She has been doing well with carvedilol however. Interim History Dr. Bell 03/30/2024: Ms. Martin presents for follow up evaluation for arrhythmia, with history of SVT and paroxysmal atrial fibrillation. She reports no issues with bleeding on the Eliquis, just some easy bruising of arms and legs. She had atrial fibrillation in January 2024, underwent electrical cardioversion in [facility] ED. She had episode of SVT in February 2024, was in [place] ED. The arrhythmia spontaneously terminated. She has another episode of arrhythmia, she thinks SVT, occurred in March (03/23/2024) a couple days prior to planned outpatient cystoscopy. She was evaluated by Rocio Reina in Dr. Gandhi's office recently on 03/24/2024, she was advised to defer the cystoscopy. The cystoscopy is considered to evaluate abnormal cells in the bladder. A cardiac stress test and echocardiogram were ordered. She has chest tightness and palpitations with the arrhythmias. No changes were made to her medication regimen. She did not tolerate metoprolol due to hair loss (alopecia). She does tolerate carvedilol however. She states she has never been on diltiazem (but medical records indicate that she was in the past, and did not tolerate it due to lightheadedness). I have confirmed and edited as necessary, the PFSH and ROS obtained by others. PAST MEDICAL HISTORY Diagnosis Date Anticoagulant long-term use Arthritis At risk for stroke [id number] = 3 (age, DM, female gender) Adams's esophagus Disorder of bone and cartilage, unspecified Disorder of thyroid Essential hypertension GERD (gastroesophageal reflux disease) Hiatal hernia Hypothyroidism Obesity, unspecified Obesity Other diseases of pharynx, not elsewhere classified(478.29) Other extrapyramidal disease and abnormal movement disorder PAC (premature atrial contraction) Paroxysmal atrial fibrillation (HCC) Pure hypercholesterolemia SVT (supraventricular tachycardia) (HCC) Type II or unspecified type diabetes mellitus without mention of complication, not stated as uncontrolled PAST SURGICAL HISTORY Procedure Laterality Date APPENDECTOMY BACK SURGERY HX BUNIONECTOMY, LAPIDUS-TYPE N/A LEFT HEART CATH,PERCUTANEOUS LHC 10/13/2020 TOTAL ABDOMINAL HYSTERECT W/WO RMVL TUBE OVARY Hysterectomy, VERNELL VAGINAL HYSTERECTOMY SOCIAL HISTORY Social History Tobacco Use Smoking status: Never Smokeless tobacco: Never Substance Use Topics Alcohol use: No Drug use: Never FAMILY HISTORY Problem Relation Age of Onset Alzheimer's Disease Mother Hypertension Mother Stroke Mother Thyroid Mother Diabetes Father Parkinson s Disease Father Heart disease Father CAD GI Father stomach ulcers Ischemic Heart Disease Brother CAD; s/p CABG; s/p coronary stents Diabetes Brother No Known Problems Brother other (other) Brother in [place] Stroke Maternal Grandmother Stroke Maternal Grandfather Cancer Paternal Aunt Cancer Paternal Aunt Stroke Maternal Uncle Stroke Maternal cousin ALLERGIES: ALLERGIES Allergen Reactions Diltiazem Other: See Comments Dizziness or lightheadedness Fosamax [Alendronat* Other: See Comments Patient states I had jaw pain when taking Fosamax. Metoprolol Other: See Comments Hair loss Ultram [Tramadol Hc* Intolerance racing heart Benzonatate Other: See Comments dizzy Codeine Mental Status Change wires me up anxious, insomnia Macrodantin [Nitrof* Diarrhea Prednisone Other: See Comments Drives blood sugar up Raloxifene Other: See Comments Bowel issues Vistaril [Hydroxyzi* Mental Status Change hallucinations MEDICATIONS: estradiol (ESTRACE) 0.01 % (0.1 mg/gram) vaginal cream estradiol 0.1 mg/g vaginal cream Dose = 1 appl, Vaginal, 2X/week, 0 Refill(s) Start Date: 03/04/24 Status: Ordered loratadine (CLARITIN) 10 mg tablet Take 10 mg by mouth. inulin 1.5 gram chew Take 1.5 g by mouth. DULoxetine (CYMBALTA) 30 mg capsule Take 30 mg by mouth daily at bedtime. carvedilol (COREG) 12.5 mg tablet Take 12.5 mg by mouth twice daily with meals. cyanocobalamin, vitamin B-12, (VITAMIN B-12 INJECTION) Inject subcutaneously once every month. pioglitazone (ACTOS) 15 mg tablet Take 15 mg by mouth once daily. ELIQUIS 5 mg tab(s) Take 5 mg by mouth twice daily. acetaminophen (TYLENOL) 500 mg tablet Take 1,000 mg by mouth every 8 hours as needed for pain. levothyroxine (SYNTHROID) 50 mcg tablet Take 50 mcg by mouth once daily. JANUMET XR 50-1,000 mg TM24 Take 1 tablet by mouth twice daily. ascorbic acid, vitamin C, (VITAMIN C) 250 mg tablet Take 250 mg by mouth once daily. aspirin, enteric coated (ASPIRIN, ENTERIC COATED) 81 mg EC tablet Take 81 mg by mouth once daily. omeprazole (PRILOSEC) 40 mg capsule Take 40 mg by mouth twice daily. atorvastatin (LIPITOR) 20 mg tablet Take 20 mg by mouth once daily. ferrous sulfate 325 mg (65 mg iron) tablet Take 325 mg by mouth daily with breakfast. multivitamin tablet Take 1 tablet by mouth once daily. exenatide (BYDUREON) 2 mg / 0.65 ml subcutaneous pen injector Inject 2 mg subcutaneously one time a week. calcium phos tribas/vitamin D2 (CHILDREN'S CALCIUM GUMMIES ORAL) Take 1 tablet by mouth once daily. BIOTIN 5,000 MCG GUMMY Take 2 tablets by mouth once daily. ASTEPRO ALLERGY 205.5 mcg (0.15 %) spry place 2 sprays into each nostril twice a day Coenzyme Q10 200 mg cap Take 200 mg by mouth once daily. ketoconazole (NIZORAL) 2 % cream Apply to affected area as needed. daily Review of Systems Constitutional: Negative for chills and fever. Respiratory: Negative for cough, hemoptysis, sputum production and shortness of breath. Cardiovascular: Positive for chest pain and palpitations. Negative for orthopnea, leg swelling and PND. Gastrointestinal: Negative for abdominal pain, blood in stool, melena, nausea and vomiting. Genitourinary: Negative for dysuria, flank pain and hematuria. Musculoskeletal: Negative for falls. Skin: Negative for rash. Neurological: Negative for focal weakness, seizures and loss of consciousness. Endo/Heme/Allergies: Bruises/bleeds easily. PHYSICAL EXAMINATION: BP 108/70 Pulse 91 Ht 5' 6 (1.68m) Wt 175 lb (79.4kg) SpO2 97% BMI 28.26 kg/(m^2). Physical Exam Vitals reviewed. Constitutional: General: She is not in acute distress. Appearance: Normal appearance. HENT: Head: Normocephalic and atraumatic. Cardiovascular: Rate and Rhythm: Normal rate and regular rhythm. Heart sounds: S1 normal and S2 normal. Murmur heard. Systolic murmur is present with a grade of 1/6. No friction rub. Pulmonary: Effort: Pulmonary effort is normal. No respiratory distress. Breath sounds: Normal breath sounds. No wheezing, rhonchi or rales. Musculoskeletal: Cervical back: Neck supple. Skin: General: Skin is warm and dry. Neurological: General: No focal deficit present. Mental Status: She is alert and oriented to person, place, and time. Psychiatric: Mood and Affect: Mood normal. Behavior: Behavior normal. Thought Content: Thought content normal. CARDIOVASCULAR MEDICINE TESTING: Electrocardiogram: Sinus rhythm 83 bpm; normal conduction intervals (MD 158 ms, QRS 54 ms); QTc 408 ms I have personally reviewed the Electrocardiogram. I spent a total of 40 minutes on the date of the service which included preparing to see the patient, [id number] patient care, completing clinical documentation, obtaining and/or reviewing separately obtained history, performing a medically appropriate examination, counseling and educating the patient/family/caregiver, ordering medications, tests, or procedures, communicating with other HCPs (not separately reported), independently interpreting results (not separately reported), communicating results to the patient/family/caregiver, and care coordination (not separately reported). 1. Paroxysmal atrial fibrillation (HCC) - ICD9: 427.31, ICD10: I48.0 (primary diagnosis) 2. At risk for stroke - ICD9: V15.89, ICD10: Z91.89 3. Anticoagulant long-term use - ICD9: V58.61, ICD10: Z79.01 4. PAC (premature atrial contraction) - ICD9: 427.61, ICD10: I49.1 5. SVT (supraventricular tachycardia) (HCC) - ICD9: 427.89, ICD10: I47.10 6. Palpitations - ICD9: 785.1, ICD10: R00.2 7. Obstructive sleep apnea syndrome - ICD9: 327.23, ICD10: G47.33 CHADS2-Vasc Score Breakdown 6 Total Score 1 Female 2 Age >= 75 years old 1 History of hypertension 1 History of diabetes mellitus 1 History of vascular disease IMPRESSION: Ms. Altland seems to be reasonably stable from heart rhythm standpoint. She has some arrhythmia symptoms but not severely. She has been experiencing chest discomfort, primarily during arrhythmia. The [facility] team has ordered an echocardiogram and a cardiac stress test. If these studies are ok, then from a heart rhythm standpoint I do not see any reason to delay the procedure. While she is considered sufficiently stable from heart rhythm standpoint to undergo the proposed procedure, she is experiencing sufficiently bothersome symptoms to warrant consideration of catheter ablation, as we have discussed previously. I had a detailed discussion with Ms. Martin regarding my evaluation and recommendations. After our discussion, Ms. Martin expressed her understanding and I answered all her questions to her apparent satisfaction. She would like to proceed with catheter ablation. I do think that this procedure should wait until after the cardiac testing that has been ordered by the [facility], and also after she undergoes evaluation for the evaluation of the bladder issue. Again, there is really no need to delay the procedure to evaluate a potentially dangerous bladder condition for any heart rhythm reason -- the heart rhythm is under sufficient control to not create a risky situation. PLAN AND RECOMMENDATIONS: Continue with current plan of care from EP standpoint. She will schedule the echocardiogram and cardiac stress test in [place]. Considering catheter ablation, will initiate scheduling process. Please do not unnecessarily delay the procedure for benign arrhythmia(s) that are under sufficient control at the present time. Return in about 6 months (around 09/27/2024) for Dr. Bell [place] office (or [facility] office). Ann-Marie Bell MD 03/30/2024 Medical Decision Making: Problems: Moderate: 1+ chronic illnesses with change Data: Unique source(s) for external note(s) reviewed: 3+ Unique test result(s) reviewed: 3+ Unique test(s) ordered: 1 Risk: Moderate: Moderate risk from testing/treatment, Drug management and Decision on minor surgery w/ risk factors Medical Decision Making Level: 4 - Moderate documented in this encounter [facility] 03-30-2024 Note HNO ID: [id number] Author: ANN-MARIE BELL MD Service: ? Author Type: Physician Type: Progress Notes Filed: 04/01/2024 21:55 Note Text: PRIMARY CARE PHYSICIAN: Ann-Marie Silva [address] [place] [address] Patient Care Team: Ann-Marie Silva DO as PCP - General (Family Medicine) Ann-Marie Bell MD as Specialty [facility] (Cardiology) Tan Gandhi MD as Specialty [facility] (Cardiology) Pearl Levy MD as Specialty [facility] (Urology) Sarath Alvarez MD as Specialty [facility] (Neurology) CHIEF COMPLAINT: Follow up for arrhythmia HISTORY OF PRESENT ILLNESS: Ms. Martin is a 73 year old female who presents today for a cardiovascular medicine follow-up visit. History copied from previous notes, edited as needed: Summary of previous notes: Ms. Martin was diagnosed with atrial fibrillation in about 02/2022. She experienced tightness in the chest, rapid heartbeats, palpitations --- she had experienced such symptoms for perhaps a couple months prior (even a year prior?) although she also has been found to have SVT. In February 2022 when she was found to have atrial fibrillation with rapid ventricular response rates she was treated initially with IV metoprolol and IV amiodarone, spontaneously converted to sinus rhythm. She was discharged on PO metoprolol, initially 100 mg twice daily but then decreased to 50 mg twice daily due to side effects (fatigue, low BP). At some point she was treated with Eliquis oral anticoagulation for stroke prevention. Symptoms have been under reasonable control with beta-kiki therapy, so it is reasonable to continue with this treatment strategy for now. 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 Class III agents sotalol or dofetilide could be considered, and amiodarone would be less desirable if other options exist. Catheter ablation is also a consideration for the atrial fibrillation but also for the SVT --- if the latter were to be inducible. We reviewed her experience with various medications: she had hair loss that was attributed to metoprolol, improved after stopping it. She had dizziness or lightheadedness with diltiazem, improved after stopping it. She has been doing well with carvedilol however. Interim History Dr. Bell 03/30/2024: Ms. Martin presents for follow up evaluation for arrhythmia, with history of SVT and paroxysmal atrial fibrillation. She reports no issues with bleeding on the Eliquis, just some easy bruising of arms and legs. She had atrial fibrillation in January 2024, underwent electrical cardioversion in [facility] ED. She had episode of SVT in February 2024, was in [place] ED. The arrhythmia spontaneously terminated. She has another episode of arrhythmia, she thinks SVT, occurred in March (03/23/2024) a couple days prior to planned outpatient cystoscopy. She was evaluated by Rocio Reina in Dr. Gandhi's office recently on 03/24/2024, she was advised to defer the cystoscopy. The cystoscopy is considered to evaluate abnormal cells in the bladder. A cardiac stress test and echocardiogram were ordered. She has chest tightness and palpitations with the arrhythmias. No changes were made to her medication regimen. She did not tolerate metoprolol due to hair loss (alopecia). She does tolerate carvedilol however. She states she has never been on diltiazem (but medical records indicate that she was in the past, and did not tolerate it due to lightheadedness). I have confirmed and edited as necessary, the PFSH and ROS obtained by others. PAST MEDICAL HISTORY Diagnosis Date Anticoagulant long-term use Arthritis At risk for stroke [id number] = 3 (age, DM, female gender) Adams's esophagus Disorder of bone and cartilage, unspecified Disorder of thyroid Essential hypertension GERD (gastroesophageal reflux disease) Hiatal hernia Hypothyroidism Obesity, unspecified Obesity Other diseases of pharynx, not elsewhere classified(478.29) Other extrapyramidal disease and abnormal movement disorder PAC (premature atrial contraction) Paroxysmal atrial fibrillation (HCC) Pure hypercholesterolemia SVT (supraventricular tachycardia) (HCC) Type II or unspecified type diabetes mellitus without mention of complication, not stated as uncontrolled PAST SURGICAL HISTORY Procedure Laterality Date APPENDECTOMY BACK SURGERY HX BUNIONECTOMY, LAPIDUS-TYPE N/A LEFT HEART CATH,PERCUTANEOUS LHC 10/13/2020 TOTAL ABDOMINAL HYSTERECT W/WO RMVL TUBE OVARY Hysterectomy, VERNELL VAGINAL HYSTERECTOMY SOCIAL HISTORY Social History Tobacco Use Smoking status: Never Smokeless tobacco: Never Substa (more content not included)... [facility] 09-06-2023 Note . MICRO - Microbiology PROCEDURE: Urine Culture [*1] SOURCE: Urine, Clean Catch BODY SITE: COLLECTED DATE/TIME: 09/04/2023 13:45 EST RECEIVED DATE/TIME: 09/04/2023 20:40 EST START DATE/TIME: 09/04/2023 20:40 EST FREE TEXT SOURCE: FINAL REPORTS Final Report [] Verified Date/Time/Personnel: 09/06/2023 07:24 EST 50,000 - 100,000 cfu/ml Multiple bacterial morphotypes present. Probable Contamination. Suggest recollection if clinically indicated. PRELIMINARY REPORTS Preliminary Report [] Verified Date/Time/Personnel: 09/05/2023 10:45 EST No growth to date Performing Locations *1: This test was performed at: [address], [facility] , [facility] ([place]) 07-01-2023 Note ORIGINAL EXAMINATION: BONE [id number]/26/2023 2:33 pm TECHNIQUE: Dual energy bone densitometry lumbar spine and left hip on a Hologic system. COMPARISON: 11/21/2020 HISTORY: ORDERING SYSTEM PROVIDED HISTORY: Reason for Exam: Osteoporosis Screening FINDINGS: Total bone mineral density of the L1-L4 is 1.001 grams per square centimeters, and T-score being -0.4, indicating that this patient has normal bone mineral density. BMD change: 3.3%, increased bone mineral density from prior 0.969. Bone mineral density of the left femoral neck is 0.647 grams per square centimeters, and T-score being -1.8, indicating that this patient has osteopenia. BMD change: Decrease in bone mineral density from prior of 0.732. Total bone mineral density of the left hip is 0.748 grams per square centimeters, and T-score being -1.6, indicating that this patient has osteopenia. BMD change: -3.7%, decrease in bone mineral density from prior of 0.776. FRAX score: Not reported, patient is treated for osteoporosis. IMPRESSION: Osteopenia. Decrease in bone mineral density of spine and hip. I have personally reviewed the images of this examination and agree with the resident's finding and interpretation. Interpreted by: Suzette Mina Preliminary Report By: Betty Taveras Electronically signed By Suzette Mina Dictated Date: 07/01/2023 2:41:50 PM Prelim Date: 07/01/2023 5:29:00 PM Sign Date: 07/01/2023 5:29:00 PM Ordering Provider: ANN-MARIE SILVA [facility] 11-06-2022 History of Present illness Narrative PRIMARY CARE PHYSICIAN: Ann-Marie Silva [facility] [place] [address] Patient Care Team: Ann-Marie Silva DO as PCP - General (Family Medicine) Ann-Marie Bell MD as Specialty [facility] (Cardiology) Tan Gandhi as Specialty [facility]ner (Cardiology) CHIEF COMPLAINT: Follow-up for arrhythmia HISTORY OF PRESENT ILLNESS: Ms. Martin is a 72 year old female who presents today for a cardiovascular medicine follow-up visit. History copied from previous notes, edited as needed: Dr. Bell's previous notes, office notes 05/08/2022: Ms. Martin is a 72 year old female who presents today for evaluation of atrial fibrillation. She has a history of nonobstructive CAD (cath in 2020), HTN, hyperlipidemia, DM2. She was diagnosed with atrial fibrillation in about 02/2022. She experienced tightness in the chest, rapid heartbeats, palpitations --- she had experienced such symptoms for perhaps a couple months prior (even a year prior?) although she also has been found to have SVT perhaps a couple of years ago. In February 2022 when she was found to have atrial fibrillation with rapid ventricular response rates she was treated initially with IV metoprolol and IV amiodarone, spontaneously converted to sinus rhythm. She was discharged on PO metoprolol, initially 100 mg twice daily but then decreased to 50 mg twice daily due to side effects (fatigue, low BP). At some point she was treated with Eliquis oral anticoagulation for stroke prevention. 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 She had worn a Holter monitor for a day or two earlier this year although she is not entirely certain when. More recently she has been doing well, not experiencing much palpitations with the metoprolol 50 mg twice daily dosing. IMPRESSION (05/2022): Ms. Martin has symptomatic atrial fibrillation, also a history of some type of SVT. Symptoms have been under reasonable control with beta-kiki therapy, so it is reasonable to continue with this treatment strategy for now. 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 Class III agents sotalol or dofetilide could be considered, and amiodarone would be less desirable if other options exist. Catheter ablation is also a consideration for the atrial fibrillation but also for the SVT --- if the latter were to be inducible. I had a detailed discussion with Ms. Martin regarding my evaluation and recommendations. After our discussion, Ms. Martin expressed her understanding and I answered all her questions to her apparent satisfaction. For now she is doing reasonably well with the current medication regimen with the beta-kiki so she will continue with that for now. PLAN AND RECOMMENDATIONS (05/2022): Continue with current plan of care from EP standpoint. Consider antiarrhythmic drug therapy vs catheter ablation if her symptoms from arrhythmia become excessively bothersome. Interim History Dr. Bell 11/06/2022: Ms. Martin presents for follow up evaluation for arrhythmia. She states she has been doing well, not experiencing very frequent or prolonged symptoms. She has experienced only a couple episodes of palpitations, lasting about 10 - 15 minutes. We reviewed her experience with various medications: she had hair loss that was attributed to metoprolol, improved after stopping it. She had dizziness or lightheadedness with diltiazem, improved after stopping it. She has been doing well with carvedilol however. She denies chest pain, shortness of breath, orthopnea, PND, syncope. I have confirmed and edited as necessary, the PFSH and ROS obtained by others. PAST MEDICAL HISTORY Diagnosis Date Anticoagulant long-term use Arthritis At risk for stroke [id number] = 3 (age, DM, female gender) Adams's esophagus Disorder of bone and cartilage, unspecified Disorder of thyroid Essential hypertension GERD (gastroesophageal reflux disease) Hiatal hernia Hypothyroidism Obesity, unspecified Obesity Other diseases of pharynx, not elsewhere classified(478.29) Other extrapyramidal disease and abnormal movement disorder PAC (premature atrial contraction) Paroxysmal atrial fibrillation (HCC) Pure hypercholesterolemia SVT (supraventricular tachycardia) (HCC) Type II or unspecified type diabetes mellitus without mention of complication, not stated as uncontrolled PAST SURGICAL HISTORY Procedure Laterality Date APPENDECTOMY BACK SURGERY HX BUNIONECTOMY, LAPIDUS-TYPE N/A LEFT HEART CATH,PERCUTANEOUS LHC 10/13/2020 TOTAL ABDOMINAL HYSTERECT W/WO RMVL TUBE OVARY Hysterectomy, VERNELL VAGINAL HYSTERECTOMY SOCIAL HISTORY Social History Tobacco Use Smoking status: Never Smokeless tobacco: Never Substance Use Topics Alcohol use: No Drug use: Never FAMILY HISTORY Problem Relation Age of Onset Alzheimer's Disease Mother Hypertension Mother Stroke Mother Thyroid Mother Diabetes Father Parkinson s Disease Father Heart disease Father CAD GI Father stomach ulcers Ischemic Heart Disease Brother CAD; s/p CABG; s/p coronary stents Diabetes Brother No Known Problems Brother other (other) Brother in [place] Stroke Maternal Grandmother Stroke Maternal Grandfather Cancer Paternal Aunt Cancer Paternal Aunt Stroke Maternal Uncle Stroke Maternal cousin ALLERGIES: ALLERGIES Allergen Reactions Diltiazem Other: See Comments Dizziness or lightheadedness Fosamax [Alendronat* Other: See Comments Patient states I had jaw pain when taking Fosamax. Metoprolol Other: See Comments Hair loss Ultram [Tramadol Hc* Intolerance racing heart Benzonatate Other: See Comments dizzy Codeine Mental Status Change wires me up anxious, insomnia Macrodantin [Nitrof* Diarrhea Prednisone Other: See Comments Drives blood sugar up Raloxifene Other: See Comments Bowel issues Vistaril [Hydroxyzi* Mental Status Change hallucinations MEDICATIONS: DULoxetine (CYMBALTA) 30 mg capsule Take 30 mg by mouth daily at bedtime. carvedilol (COREG) 12.5 mg tablet Take 12.5 mg by mouth twice daily with meals. cyanocobalamin, vitamin B-12, (VITAMIN B-12 INJECTION) Inject subcutaneously once every month. ASTEPRO ALLERGY 205.5 mcg (0.15 %) spry place 2 sprays into each nostril twice a day pioglitazone (ACTOS) 15 mg tablet Take 15 mg by mouth once daily. ELIQUIS 5 mg tab(s) Take 5 mg by mouth twice daily. acetaminophen (TYLENOL) 500 mg tablet Take 1,000 mg by mouth every 8 hours as needed for pain. levothyroxine (SYNTHROID) 50 mcg tablet Take 50 mcg by mouth once daily. JANUMET XR 50-1,000 mg TM24 Take 1 tablet by mouth twice daily. ascorbic acid, vitamin C, (VITAMIN C) 250 mg tablet Take 250 mg by mouth once daily. aspirin, enteric coated (ASPIRIN, ENTERIC COATED) 81 mg EC tablet Take 81 mg by mouth once daily. Coenzyme Q10 200 mg cap Take 200 mg by mouth once daily. ketoconazole (NIZORAL) 2 % cream Apply to affected area as needed. daily omeprazole (PRILOSEC) 40 mg capsule Take 40 mg by mouth twice daily. atorvastatin (LIPITOR) 20 mg tablet Take 20 mg by mouth once daily. ferrous sulfate 325 mg (65 mg iron) tablet Take 325 mg by mouth daily with breakfast. multivitamin tablet Take 1 tablet by mouth once daily. exenatide (BYDUREON) 2 mg / 0.65 ml subcutaneous pen injector Inject 2 mg subcutaneously one time a week. calcium phos tribas/vitamin D2 (CHILDREN'S CALCIUM GUMMIES ORAL) Take 1 tablet by mouth once daily. BIOTIN 5,000 MCG GUMMY Take 2 tablets by mouth once daily. Review of Systems Constitutional: Negative for chills and fever. Respiratory: Negative for cough and shortness of breath. Cardiovascular: Positive for palpitations. Negative for chest pain, orthopnea, leg swelling and PND. Gastrointestinal: Negative for abdominal pain, blood in stool, melena, nausea and vomiting. Genitourinary: Negative for hematuria. Musculoskeletal: Negative for falls. Skin: Negative for rash. Neurological: Negative for dizziness, focal weakness, seizures and loss of consciousness. PHYSICAL EXAMINATION: BP 90/60 Pulse 74 Ht 5' 6 (1.68m) Wt 182 lb (82.6kg) SpO2 97% BMI 29.39 kg/(m^2). Physical Exam Vitals reviewed. Constitutional: General: She is not in acute distress. Appearance: Normal appearance. HENT: Head: Normocephalic and atraumatic. Cardiovascular: Rate and Rhythm: Normal rate and regular rhythm. Heart sounds: S1 normal and S2 normal. Murmur heard. Systolic murmur is present with a grade of 1/6. No friction rub. Pulmonary: Effort: Pulmonary effort is normal. No respiratory distress. Breath sounds: Normal breath sounds. No wheezing, rhonchi or rales. Musculoskeletal: Cervical back: Neck supple. Right lower leg: No edema. Left lower leg: No edema. Skin: General: Skin is warm and dry. Neurological: General: No focal deficit present. Mental Status: She is alert and oriented to person, place, and time. Psychiatric: Mood and Affect: Mood normal. Behavior: Behavior normal. Thought Content: Thought content normal. CARDIOVASCULAR MEDICINE TESTING: Electrocardiogram: Sinus rhythm 72 bpm; normal conduction intervals (MD 170 ms, QRS 64 ms); QTc 407 ms I have personally reviewed the Electrocardiogram. I spent a total of 40 minutes on the date of the service which included preparing to see the patient, [id number] patient care, completing clinical documentation, obtaining and/or reviewing separately obtained history, performing a medically appropriate examination, counseling and educating the patient/family/caregiver, ordering medications, tests, or procedures, communicating with other HCPs (not separately reported), independently interpreting results (not separately reported), communicating results to the patient/family/caregiver, and care coordination (not separately reported). ASSESSMENT/PLAN: 1. Paroxysmal atrial fibrillation (HCC) - ICD9: 427.31, ICD10: I48.0 (primary diagnosis) Stable on medical therapy 2. SVT (supraventricular tachycardia) (HCC) - ICD9: 427.89, ICD10: I47.1 Stable on medical therapy 3. PAC (premature atrial contraction) - ICD9: 427.61, ICD10: I49.1 Stable on medical therapy 4. Palpitations - ICD9: 785.1, ICD10: R00.2 Not excessively bothersome with current treatment regimen 5. At risk for stroke - ICD9: V15.89, ICD10: Z91.89 CHADS2-Vasc Score Breakdown 4 Total Score 1 Female 1 Age 65-74 years old 1 History of hypertension 1 History of diabetes mellitus 6. Anticoagulant long-term use - ICD9: V58.61, ICD10: Z79.01 Favorable risk:benefit; reports no bleeding issues IMPRESSION: Ms. Martin is doing well from heart rhythm standpoint. PLAN AND RECOMMENDATIONS: Continue with current plan of care from EP standpoint. Return in about 1 year (around 11/07/2023) for Dr. Bell, with EKG. Ann-Marie Bell MD 11/06/2022 Medical Decision Making: Medical Decision Making Level: 1 - N/A documented in this encounter [facility] 11-06-2022 Nurse Note No cardiac complaints. Stephanie Winslow MA documented in this encounter [facility] 05-08-2022 Nurse Note No cardiac complaints today. Stephanie Winslow MA documented in this encounter [facility] 05-08-2022 History of Present illness Narrative PRIMARY CARE PHYSICIAN: Ann-Marie Silva DO [address] [place] [id number] REFERRING PHYSICIAN: Polo Evans MD ([facility]) [address] [place] [id number] Patient Care Team: Ann-Marie Silva as PCP - General (Family Medicine) Polo Evans as Specialty [facility] (Cardiology) CHIEF COMPLAINT: Evaluation of arrhythmia HISTORY OF PRESENT ILLNESS: Ms. Martin is a 72 year old female who presents today for evaluation of atrial fibrillation. She has a history of nonobstructive CAD (cath in 2020), HTN, hyperlipidemia, DM2. She was diagnosed with atrial fibrillation in about 02/2022. She experienced tightness in the chest, rapid heartbeats, palpitations --- she had experienced such symptoms for perhaps a couple months prior (even a year prior?) although she also has been found to have SVT perhaps a couple of years ago. In February 2022 when she was found to have atrial fibrillation with rapid ventricular response rates she was treated initially with IV metoprolol and IV amiodarone, spontaneously converted to sinus rhythm. She was discharged on PO metoprolol, initially 100 mg twice daily but then decreased to 50 mg twice daily due to side effects (fatigue, low BP). At some point she was treated with Eliquis oral anticoagulation for stroke prevention. 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 She had worn a Holter monitor for a day or two earlier this year although she is not entirely certain when. More recently she has been doing well, not experiencing much palpitations with the metoprolol 50 mg twice daily dosing. I have confirmed and edited as necessary, the PFSH and ROS obtained by others. PAST MEDICAL HISTORY Diagnosis Date Anticoagulant long-term use Arthritis At risk for stroke [id number] = 3 (age, DM, female gender) Adams's esophagus Disorder of bone and cartilage, unspecified Disorder of thyroid Essential hypertension GERD (gastroesophageal reflux disease) Hiatal hernia Hypothyroidism Obesity, unspecified Obesity Other diseases of pharynx, not elsewhere classified(478.29) Other extrapyramidal disease and abnormal movement disorder PAC (premature atrial contraction) Paroxysmal atrial fibrillation (HCC) Pure hypercholesterolemia SVT (supraventricular tachycardia) (HCC) Type II or unspecified type diabetes mellitus without mention of complication, not stated as uncontrolled PAST SURGICAL HISTORY Procedure Laterality Date APPENDECTOMY BACK SURGERY HX BUNIONECTOMY, LAPIDUS-TYPE N/A LEFT HEART CATH,PERCUTANEOUS LHC 10/13/2020 TOTAL ABDOMINAL HYSTERECT W/WO RMVL TUBE OVARY Hysterectomy, VERNELL VAGINAL HYSTERECTOMY SOCIAL HISTORY Social History Tobacco Use Smoking status: Never Smokeless tobacco: Never Substance Use Topics Alcohol use: No Drug use: Never FAMILY HISTORY Problem Relation Age of Onset Alzheimer's Disease Mother Hypertension Mother Stroke Mother Thyroid Mother Diabetes Father Parkinson s Disease Father Heart disease Father CAD GI Father stomach ulcers Ischemic Heart Disease Brother CAD; s/p CABG; s/p coronary stents Diabetes Brother No Known Problems Brother other (other) Brother in [place] Stroke Maternal Grandmother Stroke Maternal Grandfather Cancer Paternal Aunt Cancer Paternal Aunt Stroke Maternal Uncle Stroke Maternal cousin ALLERGIES: ALLERGIES Allergen Reactions Fosamax [Alendronat* Other: See Comments Patient states I had jaw pain when taking Fosamax. Ultram [Tramadol Hc* Intolerance racing heart Benzonatate Other: See Comments dizzy Codeine Mental Status Change wires me up anxious, insomnia Macrodantin [Nitrof* Diarrhea Prednisone Other: See Comments Drives blood sugar up Raloxifene Other: See Comments Bowel issues Vistaril [Hydroxyzi* Mental Status Change hallucinations MEDICATIONS: metoprolol tartrate, short acting, (LOPRESSOR) 50 mg tablet Take 50 mg by mouth twice daily. pioglitazone (ACTOS) 15 mg tablet Take 15 mg by mouth once daily. ELIQUIS 5 mg tab(s) Take 5 mg by mouth twice daily. oxybutynin ER (DITROPAN XL) 10 mg 24 hr tablet Take 10 mg by mouth. Every 4 days DULoxetine (CYMBALTA) 60 mg capsule Take 60 mg by mouth once daily. acetaminophen (TYLENOL) 500 mg tablet Take 1,000 mg by mouth every 8 hours as needed for pain. levothyroxine (SYNTHROID) 50 mcg tablet JANUMET XR 50-1,000 mg TM24 ascorbic acid, vitamin C, (VITAMIN C) 250 mg tablet Take 250 mg by mouth once daily. aspirin, enteric coated (ASPIRIN, ENTERIC COATED) 81 mg EC tablet Take 81 mg by mouth once daily. Coenzyme Q10 200 mg cap Take 200 mg by mouth once daily. ketoconazole (NIZORAL) 2 % cream Apply to affected area as needed. daily Zinc 50 mg tab Take 50 mg by mouth once daily. omeprazole (PRILOSEC) 40 mg capsule Take 40 mg by mouth twice daily. atorvastatin (LIPITOR) 20 mg tablet Take 20 mg by mouth once daily. gabapentin (NEURONTIN) 100 mg capsule Take 500 mg by mouth once daily. ferrous sulfate 325 mg (65 mg iron) tablet Take 325 mg by mouth daily with breakfast. multivitamin tablet Take 1 tablet by mouth once daily. exenatide (BYDUREON) 2 mg / 0.65 ml subcutaneous pen injector Inject 2 mg subcutaneously one time a week. calcium phos tribas/vitamin D2 (CHILDREN'S CALCIUM GUMMIES ORAL) Take 1 tablet by mouth once daily. BIOTIN 5,000 MCG GUMMY Take 2 tablets by mouth once daily. REVIEW OF SYSTEMS: Review of Systems Constitutional: Positive for malaise/fatigue. Negative for chills, fever and weight loss. Respiratory: Positive for shortness of breath. Negative for cough, hemoptysis and sputum production. Cardiovascular: Positive for chest pain (tightness in chest with arrhythmia episodes) and palpitations. Negative for orthopnea, leg swelling and PND. Gastrointestinal: Negative for abdominal pain, blood in stool, melena, nausea and vomiting. Genitourinary: Negative for hematuria. Skin: Negative for rash. Neurological: Positive for dizziness. Negative for loss of consciousness. PHYSICAL EXAMINATION: BP 107/58 Pulse 67 Ht 5' 5.5 (1.66m) Wt 177 lb 12.8 oz (80.7kg) SpO2 97% BMI 29.13 kg/(m^2). Physical Exam Vitals reviewed. Constitutional: General: She is not in acute distress. Appearance: Normal appearance. HENT: Head: Normocephalic and atraumatic. Cardiovascular: Rate and Rhythm: Normal rate and regular rhythm. Heart sounds: Normal heart sounds, S1 normal and S2 normal. No murmur heard. No friction rub. Pulmonary: Effort: Pulmonary effort is normal. No respiratory distress. Breath sounds: Normal breath sounds. No wheezing, rhonchi or rales. Musculoskeletal: Cervical back: Neck supple. Right lower leg: No edema. Left lower leg: No edema. Skin: General: Skin is warm and dry. Neurological: General: No focal deficit present. Mental Status: She is alert and oriented to person, place, and time. Psychiatric: Mood and Affect: Mood normal. Behavior: Behavior normal. Thought Content: Thought content normal. CARDIOVASCULAR MEDICINE TESTING: Electrocardiogram: Sinus rhythm 68 bpm; normal conduction intervals (MD 170 ms, QRS 64 ms); QTc 406 ms; no WPW patterns I have personally reviewed the Electrocardiogram. ASSESSMENT/PLAN: 1. Paroxysmal atrial fibrillation (HCC) - ICD9: 427.31, ICD10: I48.0 (primary diagnosis) 2. SVT (supraventricular tachycardia) (HCC) - ICD9: 427.89, ICD10: I47.1 3. PAC (premature atrial contraction) - ICD9: 427.61, ICD10: I49.1 4. At risk for stroke - ICD9: V15.89, ICD10: Z91.89 5. Anticoagulant long-term use - ICD9: V58.61, ICD10: Z79.01 6. Obstructive sleep apnea syndrome - ICD9: 327.23, ICD10: G47.33 IMPRESSION: Ms. Martin has symptomatic atrial fibrillation, also a history of some type of SVT. Symptoms have been under reasonable control with beta-kiki therapy, so it is reasonable to continue with this treatment strategy for now. 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 Class III agents sotalol or dofetilide could be considered, and amiodarone would be less desirable if other options exist. Catheter ablation is also a consideration for the atrial fibrillation but also for the SVT --- if the latter were to be inducible. I had a detailed discussion with Ms. Martin regarding my evaluation and recommendations. After our discussion, Ms. Martin expressed her understanding and I answered all her questions to her apparent satisfaction. For now she is doing reasonably well with the current medication regimen with the beta-kiki so she will continue with that for now. PLAN AND RECOMMENDATIONS: Continue with current plan of care from EP standpoint. Consider antiarrhythmic drug therapy vs catheter ablation if her symptoms from arrhythmia become excessively bothersome. Return in about 6 months (around 11/05/2022) for Dr. Bell, EKG. Ann-Marie Bell MD 05/08/2022 Medical Decision Making: Problems: Moderate: 1+ chronic illnesses with change Data: Unique source(s) for external note(s) reviewed: 1 Unique test result(s) reviewed: 3+ Unique test(s) ordered: 1 Risk: Moderate: Moderate risk from testing/treatment, Drug management and Decision on minor surgery w/ risk factors Medical Decision Making Level: 4 - Moderate documented in this encounter [facility] 04-17-2022 Nurse Note Updated patient's medical information. Juliann Groves RN documented in this encounter [facility] Evaluation + Plan note Future Appointments Appointment Date:08/14/2021 09:30:00 AM Scheduled Provider:ANN-MARIE SILVA DO Location:[facility] Appointment Type:[facility] Evaluation + Plan note Future Appointments Appointment Date:08/07/2021 01:15:00 PM Scheduled Provider:ANN-MARIE SILVA DO Location:[facility] Appointment Type:PC OV [facility] Evaluation + Plan note Future Appointments Appointment Date:02/05/2022 09:30:00 AM Scheduled Provider:ANN-MARIE SILVA DO Location:[facility] Appointment Type:PC OV Follow Up [facility] Evaluation + Plan note Future Appointments Appointment Date:08/13/2022 09:00:00 AM Scheduled Provider:ANN-MARIE SILVA DO Location:[facility] Appointment Type:PC OV [facility] Evaluation + Plan note Future Appointments Appointment Date:09/04/2023 09:00:00 AM Scheduled Provider:ANN-MARIE SILVA DO Location:[facility] Appointment Type:PC OV Follow Up [facility] Evaluation + Plan note Future Appointments Appointment Date:03/04/2024 10:00:00 AM Scheduled Provider:ANN-MARIE SILVA DO Location:[facility] Appointment Type:PC OV [facility] Evaluation + Plan note Future Appointments Appointment Date:09/02/2024 01:00:00 PM Scheduled Provider:ANN-MARIE SILVA DO Location:[facility] Appointment Type:PC OV [facility] Evaluation note Diagnosis Paroxysmal atrial fibrillation (HCC)- Primary Atrial fibrillation SVT (supraventricular tachycardia) (HCC) Other specified cardiac dysrhythmias PAC (premature atrial contraction) Supraventricular premature beats At risk for stroke Other specified personal history presenting hazards to health Anticoagulant long-term use Long-term (current) use of anticoagulants Obstructive sleep apnea syndrome Obstructive sleep apnea (adult) (pediatric) [facility] Diagnosis Paroxysmal atrial fibrillation (HCC)- Primary Atrial fibrillation SVT (supraventricular tachycardia) (HCC) Other specified cardiac dysrhythmias PAC (premature atrial contraction) Supraventricular premature beats Palpitations At risk for stroke Other specified personal history presenting hazards to health Anticoagulant long-term use Long-term (current) use of anticoagulants [facility] Diagnosis Paroxysmal atrial fibrillation (HCC)- Primary Atrial fibrillation At risk for stroke Other specified personal history presenting hazards to health Anticoagulant long-term use Long-term (current) use of anticoagulants PAC (premature atrial contraction) Supraventricular premature beats SVT (supraventricular tachycardia) (HCC) Other specified cardiac dysrhythmias Palpitations Obstructive sleep apnea syndrome Obstructive sleep apnea (adult) (pediatric) documented in this encounter [facility] course Narrative No data available for this section [facility] Hospital Discharge instructions No data available for this section [facility] Progress note No data available for this section [facility] Summary Purpose Family History No Family History Records Found No data available for this section No data available for this section No Family History Records Found No data available for this section No data available for this section No Family History Records Found Advance Directives No Advanced Directives Records FoundNo Advanced Directives Records FoundNo Advanced Directives Records Found Additional Source Comments Source Comments (unrecognize d section and content) In the event this informatio n is protected by the Federal Confidentiality of Alcohol and Drug Abuse Patient Records regulations: The Federal rules restrict any use of the information to criminally investigate or prosecute any alcohol or drug abuse patient.[facility] the event this information is protected by the Federal Confidentiality of Alcohol and Drug Abuse Patient Records regulations: The Federal rules restrict any use of the information to criminally investigate or prosecute any alcohol or drug abuse patient.[facility] the event this information is protected by the Federal Confidentiality of Alcohol and Drug Abuse Patient Records regulations: The Federal rules restrict any use of the information to criminally investigate or prosecute any alcohol or drug abuse patient.[facility] the event this information is protected by the Federal Confidentiality of Alcohol and Drug Abuse Patient Records regulations: The Federal rules restrict any use of the information to criminally investigate or prosecute any alcohol or drug abuse patient.[facility] the event this information is protected by the Federal Confidentiality of Alcohol and Drug Abuse Patient Records regulations: The Federal rules restrict any use of the information to criminally investigate or prosecute any alcohol or drug abuse patient.[facility] the event this information is protected by the Federal Confidentiality of Alcohol and Drug Abuse Patient Records regulations: The Federal rules restrict any use of the information to criminally investigate or prosecute any alcohol or drug abuse patient.[facility] INFORMATION SOURCE (unrecogn ized section and content) DATE CREATED AUTHOR 07/31/2021 [facility] DATE CREATED AUTHOR AUTHOR'S ORGANIZ ATION 09/08/2023 [facility] ([place]) DATE CREATED AUTHOR AUTHOR'S ORGANIZ ATION 04/03/2024 [facility] Care Team (unrecognized sect ion and content) Care Team Personnel Name: Tara Murray Clernathaniel Luna PT Position: P3 Scheduling - [place] Advanced Member Role: Other Name: ANN-MARIE SILVA DO Position: P4 Physician - Primary Care Med Service: Active Provider Member Role: Primary Care Physician Address: Address: [address] [place] [address] Care Team Related Persons Name: KRIS GAMEZ Care Team Personnel Name: Tara Murray PT Position: P3 Scheduling - [place] Advanced Member Role: Other Name: ANN-MARIE SILVA DO Position: P4 Physician - Primary Care Member Role: Primary Care Physician Address: Address: [address] [place] [address] Care Team Related Persons Name: KRIS GAMEZ Care Teams (unrecognized sec tion and content) Chemical Etch Operator Relationship Specialty Start Date End Date Ann-Marie Silva [address] [place] [address] PCP - General Family Medicine 06/16/20 Chemical Etch Operator Relationship Specialty Start Date End Date Ann-Marie Silva [address] [place] [address] PCP - General Family Medicine 06/16/20 Polo Evans [address] [phone] Specialty [facility] 05/07/22 Chemical Etch Operator Relationship Specialty Start Date End Date Ann-Marie Silva DO [address] [place] [address] PCP - General Family Medicine 06/16/20 Ann-Marie Bell MD [address] [phone] Specialty [facility] Cardiology 11/04/22 Tan Gandhi [address] [facility] [facility] [address] [place], [place] [id number] Specialty [facility] Cardiology 11/06/22 Chemical Etch Operator Relationship Specialty Start Date End Date Ann-Marie Silva DO [address] [place] [address] PCP - General Family Medicine 06/16/20 Ann-Marie Bell MD [address] [phone] Specialty [facility] Cardiology 11/04/22 Tan Gandhi MD [address] [facility] [address] [place], [place] [id number] Specialty [facility] Cardiology 11/06/22 Pearl Levy MD [address] [facility] [address] [place], [place] [phone] Specialty [facility] Urology 03/30/24 Sarath Alvarez MD [address] [place], [place] [phone] Specialty [facility] Neurology 03/30/24 Reason for Visit (unrecogniz ed section and content) Reason Comments New Patient Ref from Dr. Jaimie banks for a-fib Reason Comments F/U 6 Month PAF Reason Comments Cardiology Follow Up - Generic Overdue f ollow up - Paroxysmal afib FOR RECORDS PERTAINING TO PATIENTS WHO ARE OR HAVE BEEN ENROLLED IN A CHEMICAL DEPENDENCY/SUBSTANCEABUSE PROGRAM, SOME INFORMATION MAY BE OMITTED. This clinical summary was aggregated from multiple sources. Caution should be exercised in using it in the provision of clinical care. This summary normalizes information from multiple sources, and as a consequence, information in this document may materially change the coding, format and clinical context of patient data. In addition, data may be omitted in some cases. CLINICAL DECISIONS SHOULD BE BASED ON THE PRIMARY CLINICAL RECORDS. [facility], [facility]. provides no warranty or guarantee of the accuracy or completeness of information in this document.
== END | disposition home or self-care (01) ==
PROVIDERS: PCP Preventive Medicine Occupational Medicine; Referring Provider Urology; Visit Provider Urology
DX: N39.0 Urinary tract infection, site not specified (principal)
CPT/HCPCS: 87086; 87088

== ENCOUNTER 2024-05-06 05:54 | Day surgery (SDC) | payer MEDICARE, OTHER, SELFPAY ==
[2024-05-06] VITALS (12 sets, daily range): BP systolic 102–155; BP diastolic 61–78; PULSE 68–80; RESP 16–73; TEMP 36.2–36.6; O2SAT 93–97; BMI 28.2
[2024-05-06] MEDS: Lactated Ringers 1,000 ML 15 ML IV (06:40)
--- NOTE | 2024-05-06 06:57 | PCM.PRE.AN2 ---
ASA Classification* ASA Classification ASA Classification: 2 Assessment & Plan Anesthesia* Anesthesia Assessment Anesthesia Assessment: Discussed sedation and/or anesthesia options, risks, benefits, and alternatives with patient/parents/legal guardian/POA. Questions invited. The patient/parents/legal guardian/POA seems to understand and agrees to proceed with anesthesia plan. Reviewed the physical assessment, medical history, allergy history and patient home medications list prior to surgery/procedure/anesthetic and documented any changes. Performed airway and anesthesia risk assessments. Anesthesia Type Anesthesia Type: General Anesthesia Focused Assessment* Temperature: 97.5 F Pulse Rate: 78 Blood Pressure: 114/65 Respiratory Rate: 16 Pulse Ox: 97 Airway Assessment Mouth opens: >3 cm Mallampati Score: II Focused Labs Anesthesia Preop lab: CBC WBC 10.3 K/mm3 (4.4-11.0) 03/06/24 21:14 RBC 4.55 M/mm3 (4.2-5.4) 03/06/24 21:14 Hgb 14.1 g/dL (12.0-15.0) 03/06/24 21:14 Hct 43.2 % (37-47) 03/06/24 21:14 Plt Count 272 K/mm3 (150-450) 03/06/24 21:14 CHEMISTRY Potassium 4.3 mmol/L (3.5-5.1) 03/19/24 11:39 Sodium 140 mmol/L (136-145) 03/19/24 11:39 Magnesium 1.6 mg/dL (1.6-2.6) 02/28/22 20:30 BUN 11 mg/dL (7-18) 03/19/24 11:39 Creatinine 0.83 mg/dL (0.55-1.02) 03/19/24 11:39 Glucose 95 mg/dL (74-106) 03/19/24 11:39 POC Glucose 108 mg/dL (74-106) H 04/22/24 06:28 TSH 2.43 uIU/mL (0.358-3.74) 03/01/22 02:55 COAG PT 12.2 SECONDS (11.7-14.9) 10/05/20 18:25 Pre-Assessment Diagnosis/Proposed Procedure Planned Operative Procedure(s): cysto, axel stent change Anesthesia History 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 When Was Last Pacemaker Check QUESTION #4 FULL TEXT: You/Your Family Experience fever (hyperthermia) with Anesthesia Last Oral Intake Last Oral intake: Last Oral Intake NPO since 00:00 05/06/24 06:36 Meds taken in AM with sips of Yes 05/06/24 06:36 water? 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 Female Yes 04/30/24 12:12 HX of Motion Sickness No 04/30/24 12:12 HX of N/V After Surgery No 04/30/24 12:12 Non-Smoker Yes 04/30/24 12:12 Duration of Surgery greater No 04/30/24 12:12 than 60 minutes Number of Risk Factors 2 04/30/24 12:12 PONV Score Moderate Risk 04/30/24 12:12 Height & Weight Height & Weight: Anesthesia: Height & Weight Height 5 ft 5 in 05/06/24 06:36 Weight: 77 kg 05/06/24 06:36 Body Mass Index (BMI) 28.2 05/06/24 06:36 Respiratory Assessment Respiratory Assessment - fire marshal refinery: Respiratory Tract Infection Hx - fire marshal refinery Hx Respiratory Tract Infection No 04/30/24 12:12 STOP Sleep Apnea STOP Sleep Apnea - fire marshal refinery: STOP Sleep Apnea - fire marshal refinery Hx Hypertension No 04/30/24 12:12 Hx Sleep Apnea Yes 04/30/24 12:12 CPAP No 04/30/24 12:12 BIPAP No 04/30/24 12:12 Do you snore loudly (louder than talking or can be heard Do you often feel tired/ fatigued/ sleepy during daytime? Has anyone observed you stop breathing during sleep? STOP Results Positive 04/30/24 12:12 QUESTION #5 FULL TEXT : Do you snore loudly (louder than talking or can be heard through closed doors)? 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 Specify any problems Hx of Preganancy in last 3 N/A 04/30/24 12:12 Months Nurse Filling Out Transfusion NBUCHER 04/30/24 12:12 & Questions: Date: 04/30/24 04/30/24 12:12 Time: 12:13 04/30/24 12:12 Patient unable to answer at this time (ie. 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: /Reproductive Hx- fire marshal refinery Hx Now Gestational Age (in weeks): EDC: Hx Hx Para Hx Section SAB No 04/30/24 12:12 Active Medications Active Medications: Current Medications Generic Name Dose Route Start Last Admin Trade Name Freq PRN Reason Stop Dose Admin Cefazolin Sodium 2 gm/ N/A 20 mls @ 400 mls/hr 05/06/24 07:30 IV 05/06/24 07:32 PREOP ONE Lactated Ringer's 1,000 mls @ 15 mls/hr 05/06/24 06:15 05/06/24 06:40 IV 05/09/24 00:54 15 mls/hr .Q48H JUNIOR Administration Protocol PFSH Medical History Hematuria Wears hearing aid Loss of hearing Wears glasses History of Holter monitoring Arthritis CPAP (continuous positive airway pressure) dependence Sleep apnea Non-smoker Low iron High cholesterol Easy bruising History of echocardiogram History of stress test Cardiology follow-up encounter History of atrial fibrillation PAF (paroxysmal atrial fibrillation) Fatigue Thyroid disease Osteoporosis Osteoarthritis Pneumonia Atrial fibrillation Gout HORACE on CPAP Premature atrial contraction Type 2 diabetes mellitus Hiatal hernia GERD (gastroesophageal reflux disease) Hypothyroidism Pure hypercholesterolemia SVT (supraventricular tachycardia) Essential hypertension Home Medications ?Medication ?Instructions ?Recorded ?Last Taken ?Type aspirin 81 mg tablet,delayed 81 mg PO DAILY 09/19/20 05/05/24 History release (Adult Low Dose Aspirin) atorvastatin 20 mg tablet 20 mg PO QHS 09/19/20 05/04/24 History exenatide microspheres 2 mg/0.85 2 mg subcut TH 09/19/20 04/29/24 History mL subcutaneous auto-injector ferrous sulfate 325 mg (65 mg 325 mg PO DAILY 09/19/20 05/05/24 History iron) tablet levothyroxine 50 mcg tablet 50 mcg PO DAILY 09/19/20 05/06/24 History multivitamin 1 tablet PO DAILY 09/19/20 05/05/24 History pioglitazone 15 mg tablet 15 mg PO DAILY 09/19/20 05/05/24 History calcium carbonate 500 mg PO DAILY 10/05/20 05/05/24 History ketoconazole 2 % topical cream 1 applic topical DAILY PRN Rash 01/17/21 Unknown History omeprazole 40 mg capsule,delayed 40 mg PO BID 11/14/21 05/06/24 History release sitagliptin phosphate 50 1 tab PO BID 09/03/22 05/05/24 History mg-metformin 1,000 mg tablet (Jandarrellt) ascorbic acid (vitamin C) 250 mg 500 mg PO DAILY 05/02/23 05/05/24 History tablet biotin 5,000 mcg disintegrating 2,500 mcg PO DAILY 05/02/23 05/05/24 History tablet duloxetine 30 mg capsule,delayed 30 mg PO QHS #90 caps 11/11/23 05/04/24 Rx release carvedilol 12.5 mg tablet 12.5 mg PO BID #180 tabs 11/27/23 05/06/24 Rx apixaban 5 mg tablet (Eliquis) 5 mg PO BID #180 TABLETS 07/16/24 10/31/24 Rx phenazopyridine 200 mg tablet 200 mg PO TID PRN PRN Bladder 04/22/24 05/03/24 Rx (Pyridium) Spasms 7 days #30 tabs Allergy/AdvReac Type Severity Reaction Status Date / Time prednisone Allergy Intermediate Hyperglycem Verified 04/30/24 12:07 ia benzonatate (From Tessalon AdvReac Severe dizziness Verified 04/30/24 12:07 Perles) codeine AdvReac Severe Anxiety/Ner Verified 04/30/24 12:07 vous hydroxyzine (From Vistaril) AdvReac Severe Hallucinati Verified 04/30/24 12:07 ons nitrofurantoin (From AdvReac Severe Diarrhea Verified 04/30/24 12:07 Macrodantin) diltiazem AdvReac Intermediate Dizzy and Verified 04/30/24 12:07 lightheaded metoprolol AdvReac Intermediate Severe Verified 04/30/24 12:07 hair loss raloxifene AdvReac Unknown Bowel Verified 04/30/24 12:07 issues hydrocodone (From Vicodin) AdvReac Anxiety/Ner Verified 04/30/24 12:07 vous Family History Mother Alzheimer disease Hypertension CVA (cerebral vascular accident) Arthritis Thyroid disorder Father Diabetes Parkinson disease Heart disease Brother CAD (coronary artery disease) Diabetes Heart disease Grandmother CVA (cerebral vascular accident) Grandfather CVA (cerebral vascular accident) Uncle CVA (cerebral vascular accident) Surgical History History of cardiac catheterization History of cataract removal with insertion of prosthetic lens History of left heart catheterization (LHC) (~10/13/20) History of open reduction and internal fixation (ORIF) procedure History of hysterectomy History of appendectomy History of laminectomy History of bunionectomy Social History household members: none Smoking Status: Never smoker second hand exposure: No alcohol intake: never substance use type: does not use caffeine: No what type of physical activity do you participate in: walking frequency: 3-4 times per week olive/moravian: Congregational seatbelt use: always Review of Systems (Anesthesia) ROS Narrative System reviewed and no additional complaints, except as documented.
[2024-05-06 07:11] LABS: Bedside Glucose 114 mg/dL (74-106)
--- NOTE | 2024-05-06 07:30 | URE_PTH ---
PATIENT: SHY MOORE [place] [facility] [facility] [id number] AGE/SX: 74/F ROOM: RE05/06/[address]: Dr. Pearl Levy MD : 1950 BED: DIS: 05/06/2024 SPEC #: [id number] RECD: 05/06/24 11:05 STATUS: SANDRA RAMSEY #: [id number] LEIGH ANN: 05/06/24 07:[address]: Pearl Levy DEPT: SURGICAL PATHOLOGY RECD BY: Silvina Carnes ENTERED: 05/06/24 12:12 SP TYPE: URETER BX OTHR DR: Dr. Everardo Silva DO Tissues: Ureter, NOS Procedures: Surgery Specimen Level IV HEADER OPERATION: Bilateral stent removal, bilateral stent change PRE-OP DIAGNOSIS: Gross hematuria, stent change TISSUE SUBMITTED: Left ureter, cellular debridement MICROSCOPIC DIAGNOSIS Left ureter, cellular debridement and stent removal: Fragments of blood clots and scant fragments of urothelium with atypia, favor reactive atypia. See comment. 05/07/2024 COMMENT Fragments of polarizable material are also noted. Please make reference to previous specimen [id number] left kidney urine with diagnosis of atypical urothelial cells present and right kidney urine with diagnosis of negative for high grade urothelium carcinoma, [id number] urine for cytology with diagnosis of rare atypical urothelial cells present. Correlation with clinical findings and appropriate follow up are necessary. MICROSCOPIC DESCRIPTION Slides are reviewed. GROSS DESCRIPTION Received in fixative is one container labeled with the patient's name and designated Left ureteral cellular debridement. The specimen consists of multiple irregular fragments of hemorrhagic soft tissue that in aggregate measure 1.2x 0.5 x 0.1 cm. The specimen is totally submitted in one cassette. 05/06/2024 TC:5 CPT:83009
[2024-05-06] MEDS: Cefazolin 2 GM in Syringe IV (07:42)
--- NOTE | 2024-05-06 07:44 | OP.PCM_ITS ---
Operative Report (Standard) Operative Information Surgery/Procedure Performed: Cystoscopy, bilateral ureteral stent removal, b ilateral ureteroscopy, basket clot removal Surgeon: Pearl Levy Date of Procedure: 05/06/24 Procedure Start Time: 07:53 Procedure Stop Time: 08:18 Pre-Operative Diagnosis: gross hematuria, atypical cytology Post-Operative Diagnosis: same Select all DRAINS/GRAFTS/IMPLANTS that apply: None Type of Anesthesia: General Estimated Blood Loss: minimal Specimen collected: Yes Description of specimen(s) removed: Cellular debris from the left ureter Description of surgery: The patient is a 74-year-old female with gross hematuria who underwent a cystoscopy with bilateral selective cytology and bilateral ureteral stent insertion 2 weeks ago. She now presents for ureteroscopy for complete evaluation. Informed consent was obtained. The patient was taken to the operating room and placed on the operating room table. Anesthesia monitored the head, neck, airway, IV access and vital signs throughout the case. Once anesthe colin was appropriately administered, she was placed into dorsolithotomy position and was prepped and draped in usual sterile fashion. The cystoscope was inserted through the urethra under direct visualization into the urinary bladder where the urine was bloody. The left ureteral stent was grasped with graspers and pulled to the urethral meatus where it was backloaded with a 0.035 Glidewire. The ureteral stent was then removed and the flexible ureteroscope was passed over the wire without difficulty into the left ureter and advanced all the way to the renal pelvis. At the area of the proximal left ureter, there is tissue with inflammation and clot attached. There was no discrete mass identified. On further evaluation the entire renal pelvis and all calyces were normal. A stone basket was utilized to remove the clot debris that was attached to the ureteral sidewall and this was sent for evaluation. The entire rest of the ureter was directly visualized and no abnormal findings were identified. This exact process was repeated on the patient's right side where there were no tissue abnormalities identified. There was 1 clot from the renal pelvis that was not attached to any tissue. This was also removed to avoid ureteral obstruction. The entire length of the ureter was visualized and there were no other abnormalities identified. Both ureters were left without stents. The bladder was then emptied and the patient was awakened and taken to the recovery room in good condition. There were no complications during this procedure. 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
--- NOTE | 2024-05-06 07:45 | EX.PCM.DISCH ---
Discharge Instructions Diet Discharge Diet: No restrictions Activity Discharge Activity: Return to Normal Activity Dressing / Incision Call your doctor if you observe: Fever of 101 or Higher, Inability to urinate and Inability to have a bowel movement Follow Up Care Please Follow Up With: Pearl Levy MD When: the office will call to schedule follow up Test Results: Test results from this visit will be discussed in further detail at your follow-up appointment, if applicable. Discharge Plan Admission Attending Provider: Pearl Levy Primary Care Provider: Everardo Silva Instructions Print Language: Jordanian Discharge Orders/Prescriptions Prescriptions: New tramadol 50 mg tablet 50 mg PO Q8H PRN (Reason: pain) 3 Days Qty: 10 0RF cephalexin 500 mg capsule 500 mg PO Q12 3 Days Qty: 6 0RF Continued calcium carbonate 500 mg calcium (1,250 mg) tablet,chewable 500 mg PO DAILY aspirin [Adult Low Dose Aspirin] 81 mg tablet,delayed release (DR/EC) 81 mg PO DAILY atorvastatin 20 mg tablet 20 mg PO QHS exenatide microspheres 2 mg/0.85 mL auto-injector 2 mg SC TH ferrous sulfate 325 mg (65 mg iron) tablet 325 mg PO DAILY levothyroxine 50 mcg tablet 50 mcg PO DAILY multivitamin Tablet 1 tablet PO DAILY pioglitazone 15 mg tablet 15 mg PO DAILY ketoconazole 2 % cream 1 applic TOPICAL DAILY PRN (Reason: Rash) ascorbic acid (vitamin C) 250 mg tablet 500 mg PO DAILY biotin 5,000 mcg tablet,disintegrating 2,500 mcg PO DAILY omeprazole 40 mg capsule,delayed release(DR/EC) 40 mg PO BID Janumet 50-1,000 mg tablet 1 tab PO BID duloxetine 30 mg capsule,delayed release(DR/EC) 30 mg PO QHS Qty: 90 3RF phenazopyridine [Pyridium] 200 mg tablet 200 mg PO TID PRN PRN (Reason: Bladder Spasms) 7 Days Qty: 30 3RF carvedilol 12.5 mg tablet 12.5 mg PO BID Qty: 180 3RF Rx Instructions: must administer with a meal/food Eliquis 5 mg tablet 5 mg PO BID Qty: 180 3RF Referrals / Follow Up: Everardo Silva DO [Primary Care Provider] - Disposition Disposition (needs filled in before D/C Order can be placed): Home, Self Care
--- NOTE | 2024-05-06 08:27 | PCM.POST.ANE ---
Anesthesia: Postop Eval I Current Vital Signs Temperature: 97.4 F Pulse Rate: 74 Blood Pressure: 138/72 Respiratory Rate: 18 Pulse Ox: 97 Assessment Airway patent: Yes Spontaneous unlabored respirations: Yes nausea: No Vomiting: No Anesthesia Complication: No Fluid Hydration Crystalloid volume administer (ml): 500 Total IV fluid infused: 500 Progress Note Anesthesia document: Postop Eval 1 completed: Yes
--- NOTE | 2024-05-06 08:33 | POSTOPAN2_ITS ---
Anesthesia Postop Eval I Sum Postop Eval Completion status Anesthesia document: Postop Eval 1 completed: Yes Anesthesia Postop Eval I Summary Anesthesia Postop Eval I Summary: Anesthesia Postop Eval I: Assessment Summary Airway patent Yes 05/06/24 08:27 VICE PRESIDENT OF TALENT ACQUISITION.CSIR Spontaneous unlabored Yes 05/06/24 08:27 VICE PRESIDENT OF TALENT ACQUISITION.CSIR respirations Mental status nausea No 05/06/24 08:27 VICE PRESIDENT OF TALENT ACQUISITION.CSIR Vomiting No 05/06/24 08:27 VICE PRESIDENT OF TALENT ACQUISITION.CSIR Anesthesia Postop Eval I: Fluid Summary Crystalloid volume administer 500 05/06/24 08:27 VICE PRESIDENT OF TALENT ACQUISITION.CSIR (ml) Colloids volume administered ( ml) Blood Product volume administered (ml) Total IV fluid infused 500 05/06/24 08:27 VICE PRESIDENT OF TALENT ACQUISITION.CSIR Anesthesia Postop Eval I: Summary Notes Anesthesia Complication No 05/06/24 08:27 VICE PRESIDENT OF TALENT ACQUISITION.CSIR Anesthesia Complication Comment: Post-operative progress note Anesthesia: Postop Eval II Evaluation Mental status: Awake Pain Level: 0 nausea: No Vomiting: No
--- NOTE | 2024-05-06 08:33 | PCM.POSTANE2 ---
Anesthesia Postop Eval I Sum Postop Eval Completion status Anesthesia document: Postop Eval 1 completed: Yes Anesthesia Postop Eval I Summary Anesthesia Postop Eval I Summary: Anesthesia Postop Eval I: Assessment Summary Airway patent Yes 05/06/24 08:27 YARD MANAGER.CSIR Spontaneous unlabored Yes 05/06/24 08:27 YARD MANAGER.CSIR respirations Mental status nausea No 05/06/24 08:27 YARD MANAGER.CSIR Vomiting No 05/06/24 08:27 YARD MANAGER.CSIR Anesthesia Postop Eval I: Fluid Summary Crystalloid volume administer 500 05/06/24 08:27 YARD MANAGER.CSIR (ml) Colloids volume administered ( ml) Blood Product volume administered (ml) Total IV fluid infused 500 05/06/24 08:27 YARD MANAGER.CSIR Anesthesia Postop Eval I: Summary Notes Anesthesia Complication No 05/06/24 08:27 YARD MANAGER.CSIR Anesthesia Complication Comment: Post-operative progress note Anesthesia: Postop Eval II Evaluation Mental status: Awake Pain Level: 0 nausea: No Vomiting: No
[2024-05-06] MEDS: traMADol 50 MG Tablet PO (09:42)
[2024-05-06] MEDS: Ketorolac 30 MG/ML Syringe 15 MG IV (10:08)
--- NOTE | 2024-05-06 10:15 | SUR.PHASEII ---
DR. PRICE GAVE ME AN ORDER FOR PHENERGAN 12.5MG IM AND KETOROLAC 15MG IV FOR CONTINUED PAIN AND NAUSEA.
[2024-05-06] MEDS: proMETHazine 25 MG/ML Syringe 12.5 MG IM (10:18)
--- NOTE | 2024-05-06 10:20 | HP.PCM_ITS ---
HPI - General HPI Narrative SHY MOORE, is a 74 F who presents for cystoscopy with bilateral ureteroscopy and stent removal. This is being done to complete the evaluation for gross hematuria. Informed consent has been obtained. Preoperative urine culture was reviewed and treated preoperatively. [facility] Medical History (Updated 05/06/24 @ 10:[address] Pearl Levy MD) Gross hematuria Hematuria Wears hearing aid Loss of hearing Wears glasses History of Holter monitoring Arthritis CPAP (continuous positive airway pressure) dependence Sleep apnea Non-smoker Low iron High cholesterol Easy bruising History of echocardiogram History of stress test Cardiology follow-up encounter History of atrial fibrillation PAF (paroxysmal atrial fibrillation) Fatigue Thyroid disease Osteoporosis Osteoarthritis Pneumonia Atrial fibrillation Gout HORACE on CPAP Premature atrial contraction Type 2 diabetes mellitus Hiatal hernia GERD (gastroesophageal reflux disease) Hypothyroidism Pure hypercholesterolemia SVT (supraventricular tachycardia) Essential hypertension Home Medications ?Medication ?Instructions ?Recorded ?Last Taken ?Type aspirin 81 mg tablet,delayed 81 mg PO DAILY 09/19/20 05/05/24 History release (Adult Low Dose Aspirin) atorvastatin 20 mg tablet 20 mg PO QHS 09/19/20 05/04/24 History exenatide microspheres 2 mg/0.85 2 mg subcut TH 09/19/20 04/29/24 History mL subcutaneous auto-injector ferrous sulfate 325 mg (65 mg 325 mg PO DAILY 09/19/20 05/05/24 History iron) tablet levothyroxine 50 mcg tablet 50 mcg PO DAILY 09/19/20 05/06/24 History multivitamin 1 tablet PO DAILY 09/19/20 05/05/24 History pioglitazone 15 mg tablet 15 mg PO DAILY 09/19/20 05/05/24 History calcium carbonate 500 mg PO DAILY 10/05/20 05/05/24 History ketoconazole 2 % topical cream 1 applic topical DAILY PRN Rash 01/17/21 Unknown History omeprazole 40 mg capsule,delayed 40 mg PO BID 11/14/21 05/06/24 History release sitagliptin phosphate 50 1 tab PO BID 09/03/22 05/05/24 History mg-metformin 1,000 mg tablet (Janumet) ascorbic acid (vitamin C) 250 mg 500 mg PO DAILY 05/02/23 05/05/24 History tablet biotin 5,000 mcg disintegrating 2,500 mcg PO DAILY 05/02/23 05/05/24 History tablet duloxetine 30 mg capsule,delayed 30 mg PO QHS #90 caps 11/11/23 05/04/24 Rx release carvedilol 12.5 mg tablet 12.5 mg PO BID #180 tabs 11/27/23 05/06/24 Rx apixaban 5 mg tablet (Eliquis) 5 mg PO BID #180 TABLETS 01/20/24 05/06/24 Rx phenazopyridine 200 mg tablet 200 mg PO TID PRN PRN Bladder 04/22/24 05/03/24 Rx (Pyridium) Spasms 7 days #30 tabs cephalexin 500 mg capsule 500 mg PO Q12 post-operative 3 05/06/24 Unknown Rx days #6 CAPSULES tramadol 50 mg tablet 50 mg PO Q8H PRN pain 3 days #10 05/06/24 Unknown Rx tabs Allergy/AdvReac Type Severity Reaction Status Date / Time prednisone Allergy Intermediate Hyperglycem Verified 04/30/24 12:07 ia benzonatate (From Tessalon AdvReac Severe dizziness Verified 04/30/24 12:07 Perles) codeine AdvReac Severe Anxiety/Ner Verified 04/30/24 12:07 vous hydroxyzine (From Vistaril) AdvReac Severe Hallucinati Verified 04/30/24 12:07 ons nitrofurantoin (From AdvReac Severe Diarrhea Verified 04/30/24 12:07 Macrodantin) diltiazem AdvReac Intermediate Dizzy and Verified 04/30/24 12:07 lightheaded metoprolol AdvReac Intermediate Severe Verified 04/30/24 12:07 hair loss raloxifene AdvReac Unknown Bowel Verified 04/30/24 12:07 issues hydrocodone (From Vicodin) AdvReac Anxiety/Ner Verified 04/30/24 12:07 vous Family History Mother Alzheimer disease Hypertension CVA (cerebral vascular accident) Arthritis Thyroid disorder Father Diabetes Parkinson disease Heart disease Brother CAD (coronary artery disease) Diabetes Heart disease Grandmother CVA (cerebral vascular accident) Grandfather CVA (cerebral vascular accident) Uncle CVA (cerebral vascular accident) Surgical History History of cardiac catheterization History of cataract removal with insertion of prosthetic lens History of left heart catheterization (LHC) (~10/13/20) History of open reduction and internal fixation (ORIF) procedure History of hysterectomy History of appendectomy History of laminectomy History of bunionectomy Social History household members: none Smoking Status: Never smoker second hand exposure: No alcohol intake: never substance use type: does not use caffeine: No what type of physical activity do you participate in: walking frequency: 3-4 times per week olive/jehovah's witness: Presybeterian seatbelt use: always ROS Constitutional Constitutional: Reports systems reviewed and no addt'l complaints, except as documented; Denies chills, fever(s) or headache(s) Eyes Eyes: Reports systems reviewed and no addt'l complaints, except as documented ENT HEENT: Reports systems reviewed and no addt'l complaints, except as documented Cardiovascular Cardiovascular: Denies chest pain, diaphoresis, dyspnea or dyspnea at rest Respiratory/Chest Respiratory/Chest: Denies chest tightness, cough or dyspnea Gastrointestinal Gastrointestinal: Denies abdominal pain, nausea or vomiting Genitourinary Genitourinary: Reports abdominal discomfort, hematuria and urinary urgency; Denies burning urination Musculoskeletal Musculoskeletal: Reports systems reviewed and no addt'l complaints, except as documented Integumentary Integumentary: Reports systems reviewed and no addt'l complaints, except as documented Neurologic Neurologic: Reports systems reviewed and no addt'l complaints, except as documented Psychiatric Psychiatric: Reports systems reviewed and no addt'l complaints, except as do cumented Endocrine Endocrinology: Reports systems reviewed and no addt'l complaints, except as documented Hematologic/Lymphatic Hematologic/Lymphatic: Reports systems reviewed and no addt'l complaints, except as documented Allergic/Immunologic Allergic/Immunologic: Reports systems reviewed and no addt'l complaints, except as documented Vital Signs Vital Signs Vital Signs: 05/06/24 06:35 05/06/24 06:36 05/06/24 06:58 Temperature 97.5 F L 97.5 F L Temperature Source Temporal Pulse Rate 78 78 Respiratory Rate 16 16 Respiratory Pattern Normal Blood Pressure 114/65 114/65 Blood Pressure Mean 81 Blood Pressure Source Monitor Blood Pressure Position Semi-Fowlers Blood Pressure Location Right Arm Baseline BP Pulse Ox 97 97 Oxygen Delivery Method Room Air 05/06/24 08:27 05/06/24 08:27 05/06/24 08:30 Temperature 97.2 F L 97.4 F L Temperature Source Temporal Pulse Rate 76 74 74 Respiratory Rate 16 18 16 Respiratory Pattern Normal Blood Pressure 138/72 H 138/72 H 135/77 H Blood Pressure Mean 94 96 Blood Pressure Source Monitor Monitor Blood Pressure Position Semi-Fowlers Semi-Fowlers Blood Pressure Location Left Arm Left Arm Baseline BP 114/65 114/65 Pulse Ox 96 97 96 Oxygen Delivery Method Room Air Room Air 05/06/24 08:35 05/06/24 08:40 05/06/24 08:45 Temperature Temperature Source Pulse Rate 69 69 76 Respiratory Rate 16 16 16 Respiratory Pattern Blood Pressure 143/66 H 152/75 H 155/78 H Blood Pressure Mean 91 100 103 Blood Pressure Source Monitor Monitor Monitor Blood Pressure Position Semi-Fowlers Semi-Fowlers Semi-Fowlers Blood Pressure Location Left Arm Left Arm Left Arm Baseline BP 114/65 114/65 114/65 Pulse Ox 96 96 95 Oxygen Delivery Method Room Air Room Air Room Air 05/06/24 09:00 05/06/24 09:15 05/06/24 09:25 Temperature 98 F Temperature Source Temporal Pulse Rate 68 68 70 Respiratory Rate 16 16 73 H Respiratory Pattern Blood Pressure 140/76 H 147/70 H 142/75 H Blood Pressure Mean 97 95 97 Blood Pressure Source Monitor Monitor Monitor Blood Pressure Position Semi-Fowlers Semi-Fowlers Semi-Fowlers Blood Pressure Location Right Arm Left Arm Left Arm Baseline BP 114/65 114/65 114/65 Pulse Ox 96 94 93 Oxygen Delivery Method Room Air Room Air 05/06/24 09:49 05/06/24 09:49 Temperature Temperature Source Pulse Rate Respiratory Rate Respiratory Pattern Normal Blood Pressure Blood Pressure Mean Blood Pressure Source Blood Pressure Position Blood Pressure Location Baseline BP 114/65 Pulse Ox Oxygen Delivery Method Weight Weight: 77 kg Body Mass Index (BMI) 28.2 Physical Exam Const alert, oriented x3 and no apparent distress General Appearance: cooperative and comfortable HEENT normocephalic, hearing grossly normal bilaterally, external nose normal and moist oral mucous membranes Eyes General Eye: normal appearance of both eyes Neck supple General: trachea midline Lymph Lymphatic: no lymphedema noted Chest inspection of chest normal Chest: symmetrical chest wall rise Resp normal respiratory effort, normal air movement and no retractions Cardio regular rate GI soft to palpation and non-distended no CVA tenderness Back/Spine no CVA tenderness Extremity normal to inspection Skin no rashes or lesions noted Neuro oriented x3, CN's II-XII intact bilaterally and moves all extremities Psych mental status grossly normal and thought process normal Results Lab / Micro Data Labs: Laboratory Results - last 24 hr 05/06/24 06:28: POC Glucose 114 H Assessment & Plan Assessment/Plan (1) Gross hematuria: PLAN: Plan proceed with cystoscopy and ureterscopy, stent removal possible stent change informed consent obtained
== END 2024-05-06 11:50 | disposition home or self-care (01) ==
LOC: SDC 05:54 → AC 05:59
PROVIDERS: PCP Preventive Medicine Occupational Medicine; Referring Provider Urology; Visit Provider Urology
PROC: 0TJ98ZZ Inspection of Ureter, Via Natural or Artificial Opening Endoscopic (ICD-10-PCS; CPT 52352; principal; 2024-05-06 07:20)
DX: R31.0 Gross hematuria (principal); I48.0 Paroxysmal atrial fibrillation; E11.9 Type 2 diabetes mellitus without complications; Z79.82 Long term (current) use of aspirin; E78.00 Pure hypercholesterolemia, unspecified; Z90.710 Acquired absence of both cervix and uterus; Z79.891 Long term (current) use of opiate analgesic; Z79.01 Long term (current) use of anticoagulants; Z79.84 Long term (current) use of oral hypoglycemic drugs; I10 Essential (primary) hypertension; E03.9 Hypothyroidism, unspecified; K21.9 Gastro-esophageal reflux disease without esophagitis; G47.33 Obstructive sleep apnea (adult) (pediatric); Z99.89 Dependence on other enabling machines and devices
CPT/HCPCS: 52315; 00910; 76000; 82962; 88305; J7120; A4216; J2405

== ENCOUNTER → 2024-08-23 | Outpatient (CLI) | payer MEDICARE, OTHER, SELFPAY ==
--- NOTE | 2024-08-23 17:07 | CYSPIN_PTH ---
PATIENT: SHY MOORE LOC: [facility] U#:[id number] AGE/SX: 74/F ROOM: RE08/23/[address]: Dr. Pearl Levy MD : 1950 BED: DIS: 08/23/2024 SPEC #: [id number] RECD: 08/24/24 08:57 STATUS: SANDRA REQ #: [id number] LEIGH ANN: 08/23/24 17:[address]: Pearl Levy DEPT: CYTOLOGY RECD BY: Silvina Carnes ENTERED: 08/24/24 08:58 SP TYPE: CYSPIN FL OTHR DR: Dr. Everardo Silva, DO Tissues: Urine Procedures: Pap Stain (control) Special Stain Group II Cytospin Fluid HEADER OPERATION: Not noted PRE-OP DIAGNOSIS: Gross hematuria TISSUE SUBMITTED: Urine for cytology DIAGNOSIS CYTOLOGY Urine for cytology (cytospins): Negative for high grade urothelial carcinoma. See comment. 08/24/2024 COMMENT The [employer] System for urine cytology diagnostic categorization was used in the evaluation of this case. CYTOLOGY STUDY Slides are reviewed. CYTOLOGY GROSS Received is 30 ml of dark-gold cloudy fluid labeled with the patient's name and and designated per the requisition as urine. Submitted for cytology preparation. Mr 08/24/2024 TC:5 CPT: 14589
[2024-08-23 17:08] LABS: Cytology, Body Fluid / CSF SEE PATHOLOGY REPORT
== END | disposition home or self-care (01) ==
LOC: LABSPEC 17:06
PROVIDERS: PCP Preventive Medicine Occupational Medicine; Visit Provider Urology
DX: R31.0 Gross hematuria (principal)
CPT/HCPCS: 88108; 88313